=== PATIENT | female | born 1955 | race Caucasian/White ===

== ENCOUNTER 2016-12-26 15:16 | Emergency (ER) | payer MEDICAID ==
[2016-12-26 15:25] VITALS: BP 102/72
--- NOTE | 2016-12-26 15:46 | ED Physician Documentation ---
PD HPI HEENT - Stated complaint Stated Complaint: R EAR PX - Chief complaint Chief Complaint: Heent - History obtained from History obtained from: Patient - History of Present Illness Timing - onset: How many days ago (2) Timing - duration: Days (2) Timing - details: Gradual onset, Still present, Constant Location: Right ear, Throat (back of throat and side of tongue hurt.) Worsens: Swalllowing Associated symptoms: Congestion (feels drainage that tastes bad down right side back of throat. Pain right pharynx with swallowing.). No: Fever Similar symptoms before: Has not had sx before Recently seen: Not recently seen Review of Systems Constitutional: denies: Fever, Chills Ears: reports: Ear pain Nose: reports: Congestion, Sinus pressure / pain Throat: reports: Sore throat Respiratory: denies: Cough PD PAST MEDICAL HISTORY - Past Medical History Past Medical History: Yes Cardiovascular: Hypertension Respiratory: None Neuro: None Endocrine/Autoimmune: None Psych: Anxiety Musculoskeletal: Osteoarthritis, Fatigue, Chronic back pain - Past Surgical History Past Surgical History: No - Present Medications Home Medications: Ambulatory Orders Medication Instructions Recorded Confirmed Cephalexin [Keflex] 500 mg PO TID #21 capsule 12/26/16 HYDROcod/ACETAM 5/325 [[place] 5/325] 1 tab PO Q6H PRN #15 tablet 12/26/16 Lisinopril [Lisinopril] 10 mg PO DAILY 12/26/16 12/26/16 Naproxen 375 mg PO BID #20 tablet 12/26/16 Potassium Chloride 10 meq PO BID #8 tablet.er 12/27/16 - Allergies Allergies/Adverse Reactions: Allergies Allergy/AdvReac Type Severity Reaction Status Date / Time No Known Drug Allergies Allergy Verified 12/26/16 15:25 - Social History Does the pt smoke?: No Smoking Status: Never smoker Does the pt drink ETOH?: Yes Does the pt have substance abuse?: No - Immunizations Immunizations are current?: Yes PD ED PE NORMAL - Vitals Vital signs reviewed: Yes - General General: Alert and oriented X 3, No acute distress, Well developed/nourished - HEENT HEENT: Ears normal, Dentition benign, Other (right posterior soft pallatte with some redness but no focal swelling. Tonsils without exudate. No noted peritonsillar swelling. ) Results - Vitals Vitals: Oxygen O2 Source Room air PD MEDICAL DECISION MAKING - ED course Complexity details: considered differential (has anterior adenopathy right side. TM appears normal. Upper pallatte right with some tenderness. No dental tenderness. My concern is for early peritonsillar infection by the sound of it. ), d/w patient Departure - Departure Disposition: 01 Home, Self Care Clinical Impression: Ear pain, right Sinusitis, acute Qualifiers: Sinusitis location: sphenoidal Recurrence: non-recurrent Qualified Code(s): J01.30 - Acute sphenoidal sinusitis, unspecified Condition: Stable Record reviewed to determine appropriate education?: Yes Instructions: ED Sinusitis Abx Tx Prescriptions: Cephalexin [Keflex] 500 mg PO TID #21 capsule Naproxen 375 mg PO BID #20 tablet HYDROcod/ACETAM 5/325 [[place] 5/325] 1 tab PO Q6H PRN #15 tablet PRN Reason: Pain Comments: This sounds likely to be an infection in the sinus area or back of the nasal passage. The ear drum appears normal. Recheck if other symptoms develop. Otherwise we will treated with anti-inflammatory naproxen twice daily and add Tylenol or hydrocodone if needed for pain. Cephalexin 3 times a day for a week for infection. Recheck if not improving over the next few days. Drink lots of fluids. Discharge Date/Time: 12/26/16 16:09
== END 2016-12-26 16:09 | disposition home or self-care (01) ==
LOC: ED 15:16
DX: H92.01 Otalgia, right ear (principal); J01.30 Acute sphenoidal sinusitis, unspecified; I10 Essential (primary) hypertension
CPT/HCPCS: 99283

== ENCOUNTER 2016-12-27 16:48 | Outpatient (CLI) | payer MEDICAID | END 2016-12-27 16:49 | disposition critical access hospital (66) | LOC: EMS 16:48 | PROVIDERS: ATTEND Surgery | DX: R55 Syncope and collapse (principal); R53.1 Weakness | CPT/HCPCS: A0425; A0427 ==

== ENCOUNTER 2016-12-27 17:23 | Emergency (ER) | payer MEDICAID ==
[2016-12-27] MEDS ORDERED: SODIUM CHLORIDE 0.9% 1,000 ML IV ONE ×2 (17:29→18:08)
--- NOTE | 2016-12-27 17:31 | ED Physician Documentation ---
PD HPI CHEST PAIN - Stated complaint Stated Complaint: LIGHT HEADED/BLURRY VISION - History obtained from History obtained from: Patient, EMS - History of Present Illness Timing - onset: Other (61-year-old woman with history of chronic back pain was seen yesterday for sinusitis. She was outside of the pharmacy waiting for her medications when she started to feel dizzy, she thought maybe she needed something to eat but then fell down without syncope without further injury. EMS was summoned and they found her to be in an SVT with a rate greater than 200 and modestly hypotensive. She converted to normal sinus tachycardia after the administration of 6 mg of adenosine but remains modestly hypotensive, around 80/40. She has no acute complaints at this time and there was no chest pain at any time.) Review of Systems Ten Systems: 10 systems reviewed and negative Constitutional: denies: Fever, Chills Cardiac: denies: Chest pain / pressure, Pedal edema, Calf pain Respiratory: denies: Cough, Hemoptysis, Wheezing GI: denies: Abdominal Pain PD PAST MEDICAL HISTORY - Past Medical History Cardiovascular: Hypertension Respiratory: None Neuro: None Endocrine/Autoimmune: None Psych: Anxiety Musculoskeletal: Osteoarthritis, Fatigue, Chronic back pain - Past Surgical History Past Surgical History: No - Present Medications Home Medications: Ambulatory Orders Medication Instructions Recorded Confirmed Cephalexin [Keflex] 500 mg PO TID #21 capsule 12/26/16 HYDROcod/ACETAM 5/325 [[place] 5/325] 1 tab PO Q6H PRN #15 tablet 12/26/16 Lisinopril [Lisinopril] 10 mg PO DAILY 12/26/16 12/26/16 Naproxen 375 mg PO BID #20 tablet 12/26/16 Potassium Chloride 10 meq PO BID #8 tablet.er 12/27/16 - Allergies Allergies/Adverse Reactions: Allergies Allergy/AdvReac Type Severity Reaction Status Date / Time No Known Drug Allergies Allergy Verified 12/26/16 15:25 - Social History Does the pt smoke?: No Smoking Status: Never smoker Does the pt drink ETOH?: Yes Does the pt have substance abuse?: No - Immunizations Immunizations are current?: Yes PD ED PE NORMAL - Vitals Vital signs reviewed: Yes - General General: Alert and oriented X 3, No acute distress - HEENT HEENT: PERRL, EOMI - Neck Neck: Supple, no meningeal sign, No bony TTP - Cardiac Cardiac: RRR, No murmur - Respiratory Respiratory: No respiratory distress, Clear bilaterally - Abdomen Abdomen: Normal bowel sounds, Soft, Non tender - Extremities Extremities: No edema, No calf tenderness / cord - Neuro Neuro: Alert and oriented X 3, Normal speech - Psych Psych: Normal mood, Normal affect Results - Vitals Vitals: Vital Signs - 24 hr 12/27/16 12/27/16 12/27/16 17:25 17:30 17:48 Temperature 36.4 C L Heart Rate 113 H 118 H 110 H Respiratory 19 20 16 Rate Blood Pressure 105/65 89/65 L 109/68 O2 Saturation 100 98 100 Oxygen O2 Source Room air - EKG (time done) 1734 Rate: Rate (enter#) (116) Rhythm: Sinus tachycardia [place]: LAD Intervals: Normal [place] QRS: Normal Ischemia: Non specific changes. No: ST elevation c/w ischemia Compare to prior EKG: Old EKG unavailable Computer interpretation: Agree with computer - Labs Labs: Laboratory Tests 12/27/16 12/27/16 12/27/16 17:33 17:33 17:33 WBC 12.2 H RBC 4.46 Hgb 14.5 Hct 41.3 MCV 92.8 MCH 32.6 H MCHC 35.1 RDW 13.1 Plt Count 306 MPV 8.1 Neut # 7.2 H Lymph # 3.2 [place] # 1.7 H Eos # 0.1 Baso # 0.1 Absolute Nucleated RBC 0.00 Nucleated RBCs 0.0 Sodium 133 L Potassium 2.4 L* Chloride 97 L Carbon Dioxide 24 Anion Gap 12.0 BUN 29 H Creatinine 1.4 H Estimated GFR (MDRD) 38 L Glucose 102 H Calcium 8.7 Magnesium 1.6 L Total Bilirubin 0.9 AST 59 H ALT 43 Alkaline Phosphatase 63 Total Creatine Kinase 109 CK-MB (CK-2) 2.6 Troponin I < 0.04 Total Protein 6.8 Albumin 3.7 Globulin 3.1 Albumin/Globulin Ratio 1.2 Lipase 48 TSH Urine Color Urine Clarity Urine pH Ur Specific [place] Urine Protein Urine Glucose (UA) Urine Ketones Urine Occult Blood Urine Nitrite Urine Bilirubin Urine Urobilinogen Ur Leukocyte Esterase Ur Microscopic Review Urine Culture Comments Urine Opiates Screen Ur Oxycodone Screen Urine Methadone Screen Ur Propoxyphene Screen Ur Barbiturates Screen Ur Tricyclics Screen Ur Phencyclidine Scrn Ur Amphetamine Screen U Methamphetamines Scrn U Benzodiazepines Scrn Urine Cocaine Screen U Cannabinoids Screen Ethyl Alcohol 6.5 12/27/16 12/27/16 17:33 17:45 WBC RBC Hgb Hct MCV MCH MCHC RDW Plt Count MPV Neut # Lymph # [place] # Eos # Baso # Absolute Nucleated RBC Nucleated RBCs Sodium Potassium Chloride Carbon Dioxide Anion Gap BUN Creatinine Estimated GFR (MDRD) Glucose Calcium Magnesium Total Bilirubin AST ALT Alkaline Phosphatase Total Creatine Kinase CK-MB (CK-2) Troponin I Total Protein Albumin Globulin Albumin/Globulin Ratio Lipase TSH 3.28 Urine Color YELLOW Urine Clarity CLEAR Urine pH 6.0 Ur Specific [place] <=1.005 Urine Protein NEGATIVE Urine Glucose (UA) NEGATIVE Urine Ketones NEGATIVE Urine Occult Blood TRACE-LYSE Urine Nitrite NEGATIVE Urine Bilirubin NEGATIVE Urine Urobilinogen 0.2 (NORMAL) Ur Leukocyte Esterase NEGATIVE Ur Microscopic Review NOT INDICATED Urine Culture Comments NOT INDICATED Urine Opiates Screen NEGATIVE Ur Oxycodone Screen NEGATIVE Urine Methadone Screen NEGATIVE Ur Propoxyphene Screen NEGATIVE Ur Barbiturates Screen NEGATIVE Ur Tricyclics Screen NEGATIVE Ur Phencyclidine Scrn NEGATIVE Ur Amphetamine Screen NEGATIVE U Methamphetamines Scrn POSITIVE H U Benzodiazepines Scrn NEGATIVE Urine Cocaine Screen NEGATIVE U Cannabinoids Screen NEGATIVE Ethyl Alcohol PD MEDICAL DECISION MAKING - ED course ED course: 61-year-old woman presents after an SVT with hypotension which was converted by EMS in the field. Her hypotension quickly resolved with the administration of IV fluids workup in the emergency department demonstrated significant hypokalemia, lab evidence of dehydration, and methamphetamines in her urine which she denied any recent use of. Treatment consisted of 2 L of IV fluids and both IV and oral potassium repletion. Departure - Departure Disposition: 01 Home, Self Care Clinical Impression: Dehydration, Hypokalemia, Supraventricular tachycardia Condition: Good Record reviewed to determine appropriate education?: Yes Instructions: ED Dehydration, ED Potassium Deficiency Prescriptions: Potassium Chloride 10 meq PO BID #8 tablet.er Comments: Drink plenty of fluids and follow-up with your physician, call tomorrow for the next available appointment. Return if worse.
[2016-12-27 17:40] LABS: BASOPHILS # (AUTO) 0.1 10^3/uL (0.0-0.1); BASOPHILS % (AUTO) 0.5 %; EOSINOPHILS # (AUTO) 0.1 10^3/uL (0.0-0.7); EOSINOPHILS % (AUTO) 1.1 %; HCT - HEMATOCRIT 41.3 % (37.0-47.0); HGB - HEMOGLOBIN 14.5 g/dL (12.0-16.0); LYMPHOCYTES # (AUTO) 3.2 10^3/uL (1.5-3.5); LYMPHOCYTES % (AUTO) 25.8 %; MEAN CORPUSCULAR HEMOGLOBIN 32.6 pg (27.0-31.0); MEAN CORPUSCULAR HGB CONC 35.1 g/dL (32.0-36.0); MEAN CORPUSCULAR VOLUME 92.8 fL (81.0-99.0); MEAN PLATELET VOLUME 8.1 fL (7.9-10.8); MONOCYTES # (AUTO) 1.7 10^3/uL (0.0-1.0); MONOCYTES % (AUTO) 13.9 %; NEUTROPHILS # (AUTO) 7.2 10^3/uL (1.5-6.6); NEUTROPHILS % (AUTO) 58.7 %; RED BLOOD COUNT 4.46 10^6/uL (4.20-5.40); RED CELL DISTRIBUTION WIDTH 13.1 % (12.0-15.0); UNCORRECTED WHITE BLOOD COUNT 12.2 x10^3/uL; WHITE BLOOD COUNT 12.2 x10^3/uL (4.8-10.8)
[2016-12-27 17:54] LABS: BILIRUBIN,URINE NEGATIVE (NEGATIVE)
[2016-12-27 17:55] LABS: ALBUMIN/GLOBULIN RATIO 1.2 (1.0-2.2); BILIRUBIN,TOTAL 0.9 mg/dL (0.2-1.0); CALCIUM 8.7 mg/dL (8.5-10.3); CREATININE 1.4 mg/dL (0.4-1.0); MAGNESIUM 1.6 mg/dL (1.7-2.8); POTASSIUM 2.4 mmol/L (3.5-5.0); TOTAL PROTEIN 6.8 g/dL (6.7-8.2)
[2016-12-27] MEDS ORDERED: POTASSIUM BICARB 25 MEQ TABLET PO STA (17:55)
[2016-12-27] MEDS ORDERED: POTASSIUM CHLOR 10 MEQ/100 ML 100 ML IV ONE ×2 (17:55→18:04)
[2016-12-27 17:59] LABS: CREATINE KINASE MB 2.6 ng/mL (0.6-6.3)
[2016-12-27 18:00] LABS: UA CHARGE (STRIP ONLY) YES; UR CULTURE IF IND NOT INDICATED
[2016-12-27 18:00] LABS: TROPONIN I < 0.04 ng/mL (<0.49)
[2016-12-27] MEDS ORDERED: POTASSIUM BICARB 25 MEQ TABLET PO ONE (18:14)
[2016-12-27 19:20] VITALS: BP 110/68
== END 2016-12-27 19:30 | disposition home or self-care (01) ==
LOC: EDUNIT# → ED 17:23
DX: E86.0 Dehydration (principal); E87.6 Hypokalemia; I47.1 Supraventricular tachycardia; I10 Essential (primary) hypertension; M19.90 Unspecified osteoarthritis, unspecified site; M54.9 Dorsalgia, unspecified; G89.29 Other chronic pain
CPT/HCPCS: 36415; 80053; 80306; 80320; 81003; 82550; 82553; 83690; 83735; 84443; 84484; 85025; 93005; 96374; 99283; 99284; A9270; 81001; 87086

== ENCOUNTER 2017-08-07 08:26 | Emergency (ER) | payer MEDICAID ==
[2017-08-07] MEDS ORDERED: DEXAMETHASONE 10 MG/ML VIAL IVP STA (08:47)
[2017-08-07] MEDS ORDERED: SODIUM CHLORIDE 0.9% 1,000 ML IV ONE (08:47)
[2017-08-07] MEDS ORDERED: cefTRIAXone 1 GM in SODIUM CHLORIDE 0.9% MINIBAG 100 ML IV STA (08:47)
[2017-08-07] MEDS ORDERED: IPRATROPIUM/ALBUTEROL 3 ML NEB INH STA (08:48)
[2017-08-07] MEDS ORDERED: ACETAMINOPHEN 325 MG TABLET PO STA (08:51)
--- NOTE | 2017-08-07 08:51 | ED Physician Documentation ---
PD HPI URI - Stated complaint Stated Complaint: SOA/COUGH - Chief complaint Chief Complaint: Resp - History obtained from History obtained from: Patient - History of Present Illness Timing - onset: How many days ago (3) Timing duration: Days (3) Timing details: Gradual onset, Still present Associated symptoms: Fever, Chills, Ear pain, Nasal congestion, Rhinorrhea, Sore throat, Productive cough, Dyspnea Contributing factors: Sick contact (living in a correction with others that are sick .) Improves by: MDI/nebulizer Worsened by: Activity, Position Similar symptoms before: Diagnosis (sinusitis) Recently seen: Not recently seen - Additional information Additional information: 61-year-old homeless female has developed a cough and congestion that she believes is related to being around other homeless people who are currently sick. She has been using her inhaler frequently and does not feel that it is working entirely. She has pain in her ears she has a sore throat she has some drainage down the back of her throat. Review of Systems Constitutional: reports: Fever, Chills, Myalgias, Fatigue Eyes: denies: Decreased vision Ears: reports: Ear pain Nose: reports: Rhinorrhea / runny nose, Congestion Throat: reports: Sore throat Cardiac: reports: Chest pain / pressure. denies: Palpitations, Pedal edema, Calf pain Respiratory: reports: Dyspnea, Cough, Wheezing GI: denies: Abdominal Pain, Nausea, Vomiting : denies: Dysuria PD PAST MEDICAL HISTORY - Past Medical History Cardiovascular: Hypertension Respiratory: None Neuro: None Endocrine/Autoimmune: None Psych: Anxiety Musculoskeletal: Osteoarthritis, Fatigue, Chronic back pain - Past Surgical History Past Surgical History: No - Present Medications Home Medications: Ambulatory Orders Medication Instructions Recorded Confirmed Lisinopril [Lisinopril] 10 mg PO DAILY 12/26/16 12/26/16 Azithromycin [Zithromax] 250 mg PO DAILY #6 tablet 08/07/17 Benzonatate [Tessalon] 100 - 200 mg PO TID PRN #20 capsule 08/07/17 - Allergies Allergies/Adverse Reactions: Allergies Allergy/AdvReac Type Severity Reaction Status Date / Time No Known Drug Allergies Allergy Verified 08/07/17 08:34 - Social History Does the pt smoke?: No Smoking Status: Never smoker Does the pt drink ETOH?: Yes Does the pt have substance abuse?: No - Immunizations Immunizations are current?: Yes - POLST Patient has POLST: No PD ED PE NORMAL - Vitals Vital signs reviewed: Yes (tachy and hpertensive with fever) - General General: Alert and oriented X 3, Well developed/nourished - HEENT HEENT: Atraumatic, PERRL, EOMI, Other (both TM's are mildly inflamed the left is inflamed in the attic as well ) - Neck Neck: Supple, no meningeal sign, No bony TTP - Cardiac Cardiac: No murmur, Other (tachy to 120) - Respiratory Respiratory: No respiratory distress, Clear bilaterally - Abdomen Abdomen: Soft, Non tender - Back Back: No CVA TTP, No spinal TTP - Derm Derm: Normal color, No rash - Extremities Extremities: No deformity, No edema - Neuro Neuro: No motor deficit, No sensory deficit Eye Opening: Spontaneous Motor: Obeys Commands Verbal: Oriented GCS Score: 15 - Psych Psych: Normal mood, Normal affect Results - Vitals Vitals: Vital Signs - 24 hr 08/07/17 08/07/17 08/07/17 08:29 09:20 10:33 Temperature 38.2 C H Heart Rate 122 H 98 105 H Respiratory 24 20 17 Rate Blood Pressure 138/92 H 139/98 H O2 Saturation 97 96 Oxygen O2 Source Room air - Labs Labs: Laboratory Tests 08/07/17 08/07/17 08/07/17 08:40 09:00 09:00 WBC 13.0 H RBC 4.65 Hgb 14.8 Hct 42.7 MCV 91.7 MCH 31.9 H MCHC 34.7 RDW 14.2 Plt Count 274 MPV 7.5 L Neut # 9.7 H Lymph # 1.6 [place] # 1.4 H Eos # 0.2 Baso # 0.1 Absolute Nucleated RBC 0.00 Nucleated RBC % 0.0 Sodium Potassium Chloride Carbon Dioxide Anion Gap BUN Creatinine Estimated GFR (MDRD) Glucose Calcium Total Bilirubin AST ALT Alkaline Phosphatase Troponin I Total Protein Albumin Globulin Albumin/Globulin Ratio Lipase Urine Color YELLOW Urine Clarity HAZY Urine pH 5.5 Ur Specific [place] >=1.030 H Urine Protein 30 H Urine Glucose (UA) NEGATIVE Urine Ketones NEGATIVE Urine Occult Blood LARGE H Urine Nitrite NEGATIVE Urine Bilirubin NEGATIVE Urine Urobilinogen 0.2 (NORMAL) Ur Leukocyte Esterase SMALL H Urine RBC TNTC H Urine WBC 4-5 Ur Squamous Epith Cells FEW Squamous Urine Bacteria Few Ur Microscopic Review INDICATED Urine Culture Comments INDICATED Influenza A (Rapid) Negative Influenza B (Rapid) Negative 08/07/17 08/07/17 09:44 09:44 WBC RBC Hgb Hct MCV MCH MCHC RDW Plt Count MPV Neut # Lymph # [place] # Eos # Baso # Absolute Nucleated RBC Nucleated RBC % Sodium 136 Potassium 3.4 L Chloride 103 Carbon Dioxide 24 Anion Gap 9.0 BUN 11 Creatinine 0.6 Estimated GFR (MDRD) 102 Glucose 107 H Calcium 7.8 L Total Bilirubin 0.3 AST 22 ALT 16 Alkaline Phosphatase 54 Troponin I < 0.04 Total Protein 7.0 Albumin 3.7 Globulin 3.3 Albumin/Globulin Ratio 1.1 Lipase 26 Urine Color Urine Clarity Urine pH Ur Specific [place] Urine Protein Urine Glucose (UA) Urine Ketones Urine Occult Blood Urine Nitrite Urine Bilirubin Urine Urobilinogen Ur Leukocyte Esterase Urine RBC Urine WBC Ur Squamous Epith Cells Urine Bacteria Ur Microscopic Review Urine Culture Comments Influenza A (Rapid) Influenza B (Rapid) - Rads (name of study) 2 veiw chest Radiology: Prelim report reviewed (Impression: No evidence for acute cardiothoracic process.), EMP read indepedently, See rad report PD MEDICAL DECISION MAKING - ED course Complexity details: reviewed old records, reviewed results, re-evaluated patient , considered differential, d/w patient ED course: 61-year-old homeless female with cough and congestion has otitis. She is found to be dehydrated as well. She is administered saline Rocephin a DuoNeb treatment and dexamethasone. Departure - Departure Disposition: 01 Home, Self Care Clinical Impression: Dehydration Otitis media Qualifiers: Otitis media type: suppurative Chronicity: acute Laterality: bilateral Recurrence: not specified as recurrent Spontaneous tympanic membrane rupture: without spontaneous rupture Qualified Code(s): H66.003 - Acute suppurative otitis media without spontaneous rupture of ear drum, bilateral Condition: Stable Instructions: ED Dehydration, ED Otitis Media Acute Adult Follow-Up: Yolette Land PA-C [Primary Care Provider] - Prescriptions: Azithromycin [Zithromax] 250 mg PO DAILY #6 tablet Benzonatate [Tessalon] 100 - 200 mg PO TID PRN #20 capsule PRN Reason: Cough Discharge Date/Time: 08/07/17 10:41
[2017-08-07 08:52] LABS: BILIRUBIN,URINE NEGATIVE (NEGATIVE); GLUCOSE, URINE (UA) NEGATIVE (NEGATIVE); KETONES,URINE (UA) NEGATIVE (NEGATIVE); LEUKOCYTE ESTERASE, URINE SMALL (NEGATIVE); NITRITE,URINE NEGATIVE (NEGATIVE); OCCULT BLOOD,URINE LARGE (NEGATIVE); PH,URINE 5.5 PH (5.0-7.5); PROTEIN,URINE 30 mg/dL (NEGATIVE); UROBILINOGEN,URINE 0.2 (NORMAL) E.U./dL (NORMAL)
[2017-08-07 08:53] LABS: CLARITY,URINE HAZY (CLEAR)
[2017-08-07 09:18] LABS: BASOPHILS # (AUTO) 0.1 10^3/uL (0.0-0.1); BASOPHILS % (AUTO) 0.7 %; EOSINOPHILS # (AUTO) 0.2 10^3/uL (0.0-0.7); EOSINOPHILS % (AUTO) 1.4 %; HGB - HEMOGLOBIN 14.8 g/dL (12.0-16.0); LYMPHOCYTES # (AUTO) 1.6 10^3/uL (1.5-3.5); LYMPHOCYTES % (AUTO) 12.6 %; MEAN CORPUSCULAR HEMOGLOBIN 31.9 pg (27.0-31.0); MEAN CORPUSCULAR HGB CONC 34.7 g/dL (32.0-36.0); MEAN CORPUSCULAR VOLUME 91.7 fL (81.0-99.0); MEAN PLATELET VOLUME 7.5 fL (7.9-10.8); MONOCYTES # (AUTO) 1.4 10^3/uL (0.0-1.0); NEUTROPHILS # (AUTO) 9.7 10^3/uL (1.5-6.6); NEUTROPHILS % (AUTO) 74.3 %; PLT - PLATELET COUNT 274 10^3/uL (130-450); RED BLOOD COUNT 4.65 10^6/uL (4.20-5.40); RED CELL DISTRIBUTION WIDTH 14.2 % (12.0-15.0)
[2017-08-07 09:23] LABS: BACTERIA,URINE Few /HPF (None Seen); RBC,URINE TNTC /HPF (0-5); SQUAMOUS EPITHELIAL CELL,UR FEW Squamous (<= Few)
--- NOTE | 2017-08-07 09:40 | XRAY Report ---
EXAM: CHEST RADIOGRAPHY EXAM DATE: 08/07/2017 09:07 AM. CLINICAL HISTORY: Cough soa. COMPARISON: None. TECHNIQUE: 2 views. FINDINGS: Lungs/Pleura: No focal opacities evident. No pleural effusion. No pneumothorax. Normal volumes. Mediastinum: Heart and mediastinal contours are unremarkable. Other: Mild compression deformities of several lower there are: Lumbar vertebral body, age indetermin ate. IMPRESSION: No evidence for acute cardiothoracic process. [facility] Referring Provider Line: [phone] SITE ID: [id number]
[2017-08-07 10:06] LABS: ALBUMIN 3.7 g/dL (3.2-5.5); ALBUMIN/GLOBULIN RATIO 1.1 (1.0-2.2); BILIRUBIN,TOTAL 0.3 mg/dL (0.2-1.0); CALCIUM 7.8 mg/dL (8.5-10.3); CREATININE 0.6 mg/dL (0.4-1.0)
[2017-08-07] MEDS ORDERED: POTASSIUM BICARB 25 MEQ TABLET PO STA (10:21)
[2017-08-07 10:34] VITALS: BP 139/98
--- NOTE | 2017-08-10 06:06 | ED Physician Documentation ---
ED Addendum - Addendum Addendum: 08/10/17 06:05 Chart accessed for culture review. Urine cultured out E. Coli. Not tested against azithromycin; recommend add bactrim for the UTI but finish zithromax for URI
== END 2017-08-07 10:41 | disposition home or self-care (01) ==
LOC: ED 08:26
DX: E86.0 Dehydration (principal); H66.003 Acute suppurative otitis media without spontaneous rupture of ear drum, bilateral; R00.0 Tachycardia, unspecified; I10 Essential (primary) hypertension; Z59.0 Homelessness
CPT/HCPCS: 36415; 71046; 80053; 81001; 83690; 84484; 85025; 87086; 87181; 87275; 87276; 96365; 96375; 99283; 99284; A9270; 81003

== ENCOUNTER 2017-09-01 10:23 | Outpatient (CLI) | payer MEDICAID ==
[2017-09-01 17:46] LABS: BASOPHILS % (AUTO) 0.5 %; EOSINOPHILS # (AUTO) 0.2 10^3/uL (0.0-0.7); EOSINOPHILS % (AUTO) 3.4 %; LYMPHOCYTES # (AUTO) 2.3 10^3/uL (1.5-3.5); MEAN CORPUSCULAR HEMOGLOBIN 32.4 pg (27.0-31.0); MEAN CORPUSCULAR HGB CONC 33.8 g/dL (32.0-36.0); MEAN PLATELET VOLUME 7.8 fL (7.9-10.8); MONOCYTES # (AUTO) 0.9 10^3/uL (0.0-1.0); MONOCYTES % (AUTO) 19.2 %; NEUTROPHILS # (AUTO) 1.2 10^3/uL (1.5-6.6); NEUTROPHILS % (AUTO) 26.9 %; PLT - PLATELET COUNT 167 10^3/uL (130-450); RED BLOOD COUNT 4.33 10^6/uL (4.20-5.40); RED CELL DISTRIBUTION WIDTH 14.8 % (12.0-15.0); WHITE BLOOD COUNT 4.6 x10^3/uL (4.8-10.8)
[2017-09-01 17:52] LABS: ALBUMIN 4.1 g/dL (3.2-5.5); ALBUMIN/GLOBULIN RATIO 1.2 (1.0-2.2); CALCIUM 8.9 mg/dL (8.5-10.3); CREATININE 0.6 mg/dL (0.4-1.0); TOTAL PROTEIN 7.5 g/dL (6.7-8.2)
[2017-09-01 18:07] LABS: BILIRUBIN,URINE NEGATIVE (NEGATIVE); GLUCOSE, URINE (UA) NEGATIVE (NEGATIVE); KETONES,URINE (UA) TRACE mg/dL (NEGATIVE); LEUKOCYTE ESTERASE, URINE NEGATIVE (NEGATIVE); NITRITE,URINE NEGATIVE (NEGATIVE); OCCULT BLOOD,URINE TRACE-INTA (NEGATIVE); PROTEIN,URINE NEGATIVE (NEGATIVE); UROBILINOGEN,URINE 0.2 (NORMAL) E.U./dL (NORMAL)
[2017-09-01 18:19] LABS: BACTERIA,URINE None Seen /HPF (None Seen); CLARITY,URINE CLEAR (CLEAR); CRYSTALS,URINE 11-25 Ca Oxalate /LPF; RBC,URINE 0-5 /HPF (0-5); SQUAMOUS EPITHELIAL CELL,UR NONE SEEN (<= Few)
== END 2017-09-01 10:24 | disposition home or self-care (01) ==
LOC: LAB.F 10:23
PROVIDERS: ATTEND Physician Assistant Medical
DX: I10 Essential (primary) hypertension (principal); N39.0 Urinary tract infection, site not specified
CPT/HCPCS: 36415; 80053; 81001; 85025; 87086

== ENCOUNTER 2017-09-09 09:23 | Outpatient (CLI) | payer MEDICAID ==
[2017-09-09 10:49] LABS: ALBUMIN/GLOBULIN RATIO 1.2 (1.0-2.2); BILIRUBIN,TOTAL 1.2 mg/dL (0.2-1.0); CALCIUM 8.9 mg/dL (8.5-10.3); CREATININE 0.5 mg/dL (0.4-1.0); TOTAL PROTEIN 7.3 g/dL (6.7-8.2)
[2017-09-10 18:58] LABS: HEPATITIS C ANTIBODY NON-REACTIVE (NON-REACTIVE)
== END 2017-09-09 09:24 | disposition home or self-care (01) ==
LOC: LAB 09:23
PROVIDERS: ATTEND Physician Assistant Medical
DX: E87.6 Hypokalemia (principal); R94.5 Abnormal results of liver function studies; Z11.59 Encounter for screening for other viral diseases
CPT/HCPCS: 36415; 80053; 83735; 86803

== ENCOUNTER 2017-09-14 07:55 | Emergency (ER) | payer MEDICAID ==
[2017-09-14 08:09] VITALS: BP 167/112
[2017-09-14] MEDS ORDERED: LIDOCAINE PATCH 5% TOP PRN (08:18)
[2017-09-14] MEDS ORDERED: KETOROLAC 60 MG/2 ML VIAL IM STA (08:18)
[2017-09-14] MEDS ORDERED: ONDANSETRON ODT 4 MG TABLET TL STA (08:18)
[2017-09-14] MEDS ORDERED: CYCLOBENZAPRINE 10 MG TABLET PO STA (08:18)
--- NOTE | 2017-09-14 08:33 | ED Physician Documentation ---
History of Present Illness - Stated complaint Stated Complaint: BACK PX/DIZZY - Chief complaint Chief Complaint: Back Pain - Additonal information Additional information: hx from pt 61 f long standing back problems - states spinal stenosis, degenerative disk, meningioma has had PT and accupuncture etc has nilesh floor numbness from ankle down and L foot drop occ her back flares up and caused her to collapse in pain this occurred last night and she fell and hit her head on the wall no LOC but has a severe WHITE, feels off and has had numerous episodes of NV no neck pain no new numbness or weakness no fever no abd pain no incont no saddle anesthesia Review of Systems Constitutional: denies: Fever Cardiac: denies: Chest pain / pressure Respiratory: denies: Dyspnea GI: reports: Nausea, Vomiting : denies: Incontinent Musculoskeletal: reports: Back pain. denies: Neck pain Neurologic: reports: Numbness (nilesh feet ankles down not new), Headache, Head injury. denies: Focal weakness, LOC Endocrine: denies: Easy bruising / bleeding Immunocompromised: denies: Immunocompromised PD PAST MEDICAL HISTORY - Past Medical History Past Medical History: Yes Cardiovascular: Hypertension Respiratory: None Endocrine/Autoimmune: None Psych: Anxiety Musculoskeletal: Osteoarthritis, Fatigue, Chronic back pain - Past Surgical History Past Surgical History: No - Present Medications Home Medications: Ambulatory Orders Medication Instructions Recorded Confirmed Lisinopril [Lisinopril] 10 mg PO DAILY 12/26/16 09/14/17 Cyclobenzaprine [Flexeril] 10 mg PO TID PRN #20 tablet 09/14/17 Lidocaine Patch 5% [Lidoderm Patch] 1 each TOP DAILY PRN #10 patch 09/14/17 Ondansetron Odt [Zofran] 4 mg TL Q6H PRN #10 tablet 09/14/17 Potassium Chloride 10 meq PO DAILY 09/14/17 09/14/17 - Allergies Allergies/Adverse Reactions: Allergies Allergy/AdvReac Type Severity Reaction Status Date / Time No Known Drug Allergies Allergy Verified 08/07/17 08:34 - Social History Does the pt smoke?: No Smoking Status: Never smoker Does the pt drink ETOH?: Yes Does the pt have substance abuse?: No - Immunizations Immunizations are current?: Yes - POLST Patient has POLST: No PD ED PE NORMAL - Vitals Vital signs reviewed: Yes - Neck Neck: Supple, no meningeal sign - Cardiac Cardiac: RRR - Respiratory Respiratory: No respiratory distress, Clear bilaterally - Abdomen Abdomen: Soft, Non tender, Other (no pulsatile mass) - Derm Derm: Normal color - Neuro Neuro: Alert and oriented X 3, No motor deficit. No: No sensory deficit (nilesh foot dec sensation is not new per pt, hip flex knee ext foot dorsi flax and great toe ext 5/5, foot planatr flex weak nilesh, neg SLR nilesh, patellar DTR 2+/4 nilesh, no clonus, denies saddle anesthesia) Eye Opening: Spontaneous Motor: Obeys Commands Verbal: Oriented GCS Score: 15 Results - Vitals Vitals: Vital Signs - 24 hr 09/14/17 08:04 Temperature 36.8 C Heart Rate 113 H Respiratory 20 Rate Blood Pressure 167/112 H O2 Saturation 100 Oxygen O2 Source Room air - Labs Labs: Laboratory Tests 09/14/17 08:33 Urine Color YELLOW Urine Clarity CLEAR Urine pH 6.5 Ur Specific [place] >=1.030 H Urine Protein NEGATIVE Urine Glucose (UA) NEGATIVE Urine Ketones NEGATIVE Urine Occult Blood MODERATE H Urine Nitrite NEGATIVE Urine Bilirubin NEGATIVE Urine Urobilinogen 0.2 (NORMAL) Ur Leukocyte Esterase NEGATIVE Urine RBC 6-10 H Urine WBC 0-3 Ur Squamous Epith Cells RARE Squamous Urine Bacteria Rare Ur Microscopic Review INDICATED Urine Culture Comments NOT INDICATED PD MEDICAL DECISION MAKING - ED course ED course: no LOC but severe WHITE and repetitive NV so got CTH which was thankfully neg HR noted and I felt his is due to her pain - no fever or suggestion of sepsis back pain is chronic and not new - denies substance abuse - no fever, no redness or warmth or new neuro deficits to suggest cauda equina epidural asbcess etc Departure - Departure Disposition: 01 Home, Self Care Clinical Impression: Back pain Qualifiers: Chronicity: chronic Back pain laterality: bilateral Sciatica presence: unspecified whether sciatica present Head injury Qualifiers: Encounter type: initial encounter Qualified Code(s): S09.90XA - Unspecified injury of head, initial encounter Condition: Good Instructions: ED Head Injury Closed, ED Neck Back Pain General Follow-Up: Yolette Land PA-C [Primary Care Provider] - (for a recheck later this week unless completely better) Prescriptions: Cyclobenzaprine [Flexeril] 10 mg PO TID PRN #20 tablet PRN Reason: Spasms Lidocaine Patch 5% [Lidoderm Patch] 1 each TOP DAILY PRN #10 patch PRN Reason: Pain Ondansetron Odt [Zofran] 4 mg TL Q6H PRN #10 tablet PRN Reason: Nausea / Vomiting Comments: Thankfully the CT scan was negative - no brain bleeding or swelling Please be very careful not to hit your head again - a second impact can cause brain swelling - can take tylenol for the pain and zofran for vomiting For your back pain I have prescribed lidocaine and flexeril There was a very small amount of blood in the urine - but this pain does not sound like a kidney stone - please follow up with your PMD to get the urine rechecked and if the blood persists, a referral to urology
[2017-09-14 08:37] LABS: BILIRUBIN,URINE NEGATIVE (NEGATIVE); GLUCOSE, URINE (UA) NEGATIVE (NEGATIVE); KETONES,URINE (UA) NEGATIVE (NEGATIVE); LEUKOCYTE ESTERASE, URINE NEGATIVE (NEGATIVE); NITRITE,URINE NEGATIVE (NEGATIVE); OCCULT BLOOD,URINE MODERATE (NEGATIVE); PH,URINE 6.5 PH (5.0-7.5); PROTEIN,URINE NEGATIVE (NEGATIVE); UROBILINOGEN,URINE 0.2 (NORMAL) E.U./dL (NORMAL)
[2017-09-14 08:40] LABS: CLARITY,URINE CLEAR (CLEAR)
[2017-09-14 08:44] LABS: BACTERIA,URINE Rare /HPF (None Seen); SQUAMOUS EPITHELIAL CELL,UR RARE Squamous (<= Few)
[2017-09-14] MEDS ORDERED: DEXAMETHASONE 10 MG/ML VIAL PO STA (08:45)
[2017-09-14] MEDS ORDERED: CHERRY SYRUP 10 ML UDC PO ONE (09:06)
--- NOTE | 2017-09-14 09:07 | CT Preliminary Report ---
Exam: CT HEAD W/O IMPRESSION: Normal head CT. [facility] SITE ID: [id number]
--- NOTE | 2017-09-14 09:07 | CT Report ---
EXAM: CT HEAD EXAM DATE: 09/14/2017 08:51 AM. CLINICAL HISTORY: HI, WHITE, repetitive NV. COMPARISON: None. TECHNIQUE: Multiaxial CT images were obtained from the foramen magnum to the vertex. Reformats: Coron al. IV contrast: None. In accordance with CT protocol optimization, one or more of the following dose reduction techniques w ere utilized for this exam: automated exposure control, adjustment of mA and/or KV based on patient s ize, or use of iterative reconstructive technique. FINDINGS: Parenchyma: No intraparenchymal hemorrhage. No evidence of mass, midline shift, or CT findings of inf arction. Goldman-white differentiation is distinct. Extraaxial Spaces: Normal for age. No subdural or epidural collections identified. Ventricles: Normal in size and position. Sinuses and Orbits: Imaged paranasal sinuses, orbits, and mastoids show no significant abnormality. Bones: No evidence of fracture or calvarial defect. Other: None. IMPRESSION: Normal head CT. [facility] Referring Provider Line: [phone] SITE ID: [id number]
== END 2017-09-14 10:16 | disposition home or self-care (01) ==
LOC: ED 07:55
DX: M54.5 Low back pain (principal); G89.29 Other chronic pain; S09.90XA Unspecified injury of head, initial encounter; W18.39XA Other fall on same level, initial encounter; Y92.009 Unspecified place in unspecified non-institutional (private) residence as the place of occurrence of the external cause; I10 Essential (primary) hypertension; M19.90 Unspecified osteoarthritis, unspecified site
CPT/HCPCS: 70450; 81001; 99283; 99284; A9270; Q0162; 81003; 87086

== ENCOUNTER 2017-09-17 08:02 | Outpatient (CLI) | payer MEDICAID ==
--- NOTE | 2017-09-21 18:39 | Mammography Report ---
DIGITAL SCREENING MAMMOGRAM: 09/17/2017 HISTORY: Family history of breast cancer. TECHNIQUE: Bilateral digital CC and MLO projections. COMPARISON: 12/27/2015, 09/20/2013 and 07/18/2012. FINDINGS: In the outer upper left breast middle third, nodular densities are present which are similar or smaller in appearance compared to previous and have been shown to be cysts. Scattered benign-appearing calcifications are present in both breasts. On the right MLO projection in the superior breast anterior third, there is a questionable area of architectural distortion. Its precise location on the CC view is uncertain. Further evaluation by spot compression and true lateral views is suggested. Depending on the results, ultrasound may be useful. IMPRESSION: BENIGN FINDINGS LEFT BREAST. BIRADS CATEGORY: 2, BENIGN FINDINGS. NEEDS ADDITIONAL EVALUATION RIGHT BREAST. BIRADS CATEGORY: 0, INCOMPLETE. STANDARD QUALIFYING STATEMENTS 1. This examination was reviewed with the aid of Computed-Aided Detection (CAD) . 2. A negative or benign imaging report should not delay biopsy if clinically suspicious findings are present. Consider surgical consultation if warranted. More than 5 % of cancers are not identified by imaging. 3. Dense breasts may obscure an underlying neoplasm. TD: 09/21/2017 17:23 JAYNA
== END 2017-09-17 08:03 | disposition home or self-care (01) ==
LOC: DI 08:02
PROVIDERS: ATTEND Physician Assistant Medical
DX: Z12.31 Encounter for screening mammogram for malignant neoplasm of breast (principal); R92.2 Inconclusive mammogram; Z80.3 Family history of malignant neoplasm of breast
CPT/HCPCS: 77067

== ENCOUNTER 2017-09-17 08:05 | Outpatient (CLI) | payer MEDICAID ==
--- NOTE | 2017-09-19 13:30 | DEXA Report ---
DEXA SCAN: 09/17/2017 CLINICAL INDICATION: Postmenopausal. TECHNIQUE: Dual energy x-ray absorptiometry (DXA) was performed on a [employer] system. Regions measured are the AP spine, femoral neck, and, if needed, forearm. COMPARISON: None. In accordance with the International Society for Clinical Densitometry (ISCD) guidelines, data from previous exams may be reanalyzed using current recommendations and techniques. This is done to allow a more accurate basis for comparison with the current study. FINDINGS Data for the lumbar spine is as follows: REGION BMD (g/cm/cm) T-SCORE Z-SCORE L1 1.099 -0.3 0.9 L2 0.933 -2.2 -1.1 L3 0.875 -2.7 -1.5 L4 0.941 -2.2 -1.0 L1-L4 0.953 -1.9 -0.7 NOTE: All evaluable vertebrae are used for classification. Data for the hip is as follows: REGION BMD (g/cm/cm) T-SCORE Z-SCORE Neck 0.726 -2.2 -1.0 TOTAL 0.749 -2.1 -1.2 NOTE: The femoral neck or total proximal femur, whichever is lowest, is used for classification. IMPRESSION WHO CLASSIFICATION BASED ON THE INTERNATIONAL REFERENCE STANDARD IS OSTEOPENIA. FRACTURE RISK IS INCREASED. RECOMMENDATION: Patients with diagnosis of osteoporosis or osteopenia should have regular bone mineral density assessment. For those eligible for Medicare, routine testing is allowed once every 2 years. Testing frequency can be increased for patients who have rapidly progressing disease or for those who are receiving medical therapy to restore bone mass. COMMENT World Health Organization (WHO) definitions for osteoporosis and osteopenia: NORMAL BMD: T-score at 1.0 or higher, fracture risk is low. OSTEOPENIA BMD: T-score between 1.0 and -2.5, fracture risk is increased. OSTEOPOROSIS BMD: T-score at 2.5 or lower, fracture risk high. National Osteoporosis Foundation recommends: 1. Obtain adequate dietary calcium (at least 1200 mg per day) and vitamin D (400 -800 international units per day). 2. Participate, as appropriate, in regular weightbearing and muscle- strengthening exercise. 3. Avoid tobacco use and reduce alcohol and caffeine intake. 4. For more detailed information see the website at www.NOF.org. TD: 09/17/2017 11:14 MTDLoraine
== END 2017-09-17 08:06 | disposition home or self-care (01) ==
LOC: DI 08:05
PROVIDERS: ATTEND Physician Assistant Medical
DX: Z78.0 Asymptomatic menopausal state (principal); M85.88 Other specified disorders of bone density and structure, other site
CPT/HCPCS: 77080

== ENCOUNTER 2017-09-18 08:28 | Emergency (ER) | payer MEDICAID ==
[2017-09-18 08:44] VITALS: BP 136/99
--- NOTE | 2017-09-18 09:27 | ED Physician Documentation ---
History of Present Illness - Stated complaint Stated Complaint: FACIAL SWELLING - Chief complaint Chief Complaint: Heent - Additonal information Additional information: hx from pt has 2 small swollen spots on her face and thinks she was bitten by an insect while sleeping took benadryl bonderizer otherwise well Review of Systems Constitutional: denies: Fever Throat: denies: Sore throat Respiratory: denies: Cough Skin: reports: Rash PD PAST MEDICAL HISTORY - Past Medical History Past Medical History: Yes Cardiovascular: Hypertension Respiratory: None Endocrine/Autoimmune: None Psych: Anxiety Musculoskeletal: Osteoarthritis, Fatigue, Chronic back pain - Past Surgical History Past Surgical History: No - Present Medications Home Medications: Ambulatory Orders Medication Instructions Recorded Confirmed Lisinopril [Lisinopril] 10 mg PO DAILY 12/26/16 09/14/17 Cyclobenzaprine [Flexeril] 10 mg PO TID PRN #20 tablet 09/14/17 Lidocaine Patch 5% [Lidoderm Patch] 1 each TOP DAILY PRN #10 patch 09/14/17 Ondansetron Odt [Zofran] 4 mg TL Q6H PRN #10 tablet 09/14/17 Potassium Chloride 10 meq PO DAILY 09/14/17 09/14/17 Hydrocortisone 1% Oint 1 applic TP BID PRN #1 oint...g. 09/18/17 [Hydrocortisone] - Allergies Allergies/Adverse Reactions: Allergies Allergy/AdvReac Type Severity Reaction Status Date / Time ibuprofen AdvReac Unknown Verified 09/18/17 08:44 - Social History Does the pt smoke?: No Smoking Status: Never smoker Does the pt drink ETOH?: Yes Does the pt have substance abuse?: No - Immunizations Immunizations are current?: Yes - POLST Patient has POLST: No PD ED PE NORMAL - Vitals Vital signs reviewed: Yes - HEENT HEENT: Atraumatic, PERRL, Other (two small swollen erythematous spots - L FH and R cheek, no abscess etc) - Cardiac Cardiac: RRR - Respiratory Respiratory: No respiratory distress Results - Vitals Vitals: Vital Signs - 24 hr 09/18/17 08:41 Temperature 37.1 C Heart Rate 107 H Respiratory 18 Rate Blood Pressure 136/99 H O2 Saturation 100 Oxygen O2 Source Room air PD MEDICAL DECISION MAKING - ED course ED course: HR noted may be 2/2 benadryl pt is well, no fever, no other concerns etc Departure - Departure Disposition: 01 Home, Self Care Clinical Impression: Insect bites Qualifiers: Encounter type: initial encounter Qualified Code(s): W57.XXXA - Bitten or stung by nonvenomous insect and other nonvenomous arthropods, initial encounter Condition: Good Instructions: ED Bite Insect Prescriptions: Hydrocortisone 1% Oint [Hydrocortisone] 1 applic TP BID PRN #1 oint...g. PRN Reason: insect bite
== END 2017-09-18 09:35 | disposition home or self-care (01) ==
LOC: ED 08:28
DX: I10 Essential (primary) hypertension (principal); M19.90 Unspecified osteoarthritis, unspecified site; S00.86XA Insect bite (nonvenomous) of other part of head, initial encounter; W57.XXXA Bitten or stung by nonvenomous insect and other nonvenomous arthropods, initial encounter
CPT/HCPCS: 99283

== ENCOUNTER 2017-09-29 10:20 | Outpatient (CLI) | payer MEDICAID ==
[2017-09-29 18:17] LABS: ALBUMIN 4.3 g/dL (3.2-5.5); ALBUMIN/GLOBULIN RATIO 1.1 (1.0-2.2); BILIRUBIN,TOTAL 0.9 mg/dL (0.2-1.0); CALCIUM 9.3 mg/dL (8.5-10.3); CREATININE 0.5 mg/dL (0.4-1.0); TOTAL PROTEIN 8.1 g/dL (6.7-8.2)
[2017-09-30 13:32] LABS: HEPATITIS B SURFACE ANTIGEN NON-REACTIVE (NON-REACTIVE)
== END 2017-09-29 10:21 | disposition home or self-care (01) ==
LOC: LAB.F 10:20
PROVIDERS: ATTEND Physician Assistant Medical
DX: R94.5 Abnormal results of liver function studies (principal)
CPT/HCPCS: 36415; 80053; 86704; 87340

== ENCOUNTER 2017-11-01 15:11 | Outpatient (CLI) | payer MEDICAID ==
[2017-11-01 17:46] LABS: BILIRUBIN,URINE NEGATIVE (NEGATIVE); GLUCOSE, URINE (UA) NEGATIVE (NEGATIVE); KETONES,URINE (UA) NEGATIVE (NEGATIVE); LEUKOCYTE ESTERASE, URINE TRACE (NEGATIVE); NITRITE,URINE NEGATIVE (NEGATIVE); OCCULT BLOOD,URINE SMALL (NEGATIVE); PROTEIN,URINE NEGATIVE (NEGATIVE); UROBILINOGEN,URINE 0.2 (NORMAL) E.U./dL (NORMAL)
[2017-11-01 17:54] LABS: BASOPHILS # (AUTO) 0.1 10^3/uL (0.0-0.1); BASOPHILS % (AUTO) 0.8 %; EOSINOPHILS # (AUTO) 0.2 10^3/uL (0.0-0.7); HGB - HEMOGLOBIN 12.9 g/dL (12.0-16.0); LYMPHOCYTES # (AUTO) 2.8 10^3/uL (1.5-3.5); LYMPHOCYTES % (AUTO) 33.6 %; MEAN CORPUSCULAR HEMOGLOBIN 33.9 pg (27.0-31.0); MEAN CORPUSCULAR VOLUME 99.9 fL (81.0-99.0); MEAN PLATELET VOLUME 8.1 fL (7.9-10.8); MONOCYTES # (AUTO) 0.8 10^3/uL (0.0-1.0); MONOCYTES % (AUTO) 9.6 %; NEUTROPHILS # (AUTO) 4.4 10^3/uL (1.5-6.6); PLT - PLATELET COUNT 284 10^3/uL (130-450); RED CELL DISTRIBUTION WIDTH 14.5 % (12.0-15.0); WHITE BLOOD COUNT 8.3 x10^3/uL (4.8-10.8)
[2017-11-01 18:02] LABS: CLARITY,URINE CLEAR (CLEAR)
[2017-11-01 18:15] LABS: BACTERIA,URINE Few /HPF (None Seen); CRYSTALS,URINE >50 Calcium Oxalate /LPF; SQUAMOUS EPITHELIAL CELL,UR MANY Squamous (<= Few)
[2017-11-01 18:36] LABS: ALBUMIN 4.1 g/dL (3.2-5.5); ALBUMIN/GLOBULIN RATIO 1.2 (1.0-2.2); BILIRUBIN,TOTAL 0.6 mg/dL (0.2-1.0); CALCIUM 9.3 mg/dL (8.5-10.3); CREATININE 0.6 mg/dL (0.4-1.0); TOTAL PROTEIN 7.5 g/dL (6.7-8.2)
== END 2017-11-01 15:12 | disposition home or self-care (01) ==
LOC: LAB.F 15:11
PROVIDERS: ATTEND Physician Assistant Medical
DX: I10 Essential (primary) hypertension (principal); E87.6 Hypokalemia; R30.0 Dysuria
CPT/HCPCS: 80053; 81001; 85025; 87086

== ENCOUNTER 2017-11-04 09:01 | Outpatient (CLI) | payer MEDICAID ==
--- NOTE | 2017-11-04 16:04 | Mammography Report ---
Procedure Date: 11/04/2017 Accession Number: [id number] / [id number] Procedure: [facility] - Diag Special Views Dig RT CPT Code: FULL RESULT: EXAM: Diag Special Views Dig RT DATE: 11/04/2017 10:12 AM CLINICAL HISTORY: 61-year-old female recalled from screening for a right breast architectural distortion. TECHNIQUE: Right CC, MLO and ML views. COMPARISON: 09/17/2017, 01/06/2016. FINDINGS: The breasts demonstrate heterogeneously dense fibroglandular parenchyma bilaterally. The previously identified architectural distortion is identified as tissue overlap. IMPRESSION: Benign findings RECOMMENDATION: Recommend routine annual Screening mammography unless otherwise clinically indicated. BIRADS CATEGORY 2: Benign findings STANDARD QUALIFYING STATEMENTS: 1. This examination was reviewed with the aid of Computer-Aided Detection (CAD). 2. A negative or benign imaging report should not delay biopsy if clinically suspicious findings are present. Consider surgical consultation if warrented. More than 5% of cancers are not identified by imaging. 3. Dense breasts may obscure an underlying neoplasm.
== END 2017-11-04 09:02 | disposition home or self-care (01) ==
LOC: DI 09:01
PROVIDERS: ATTEND Physician Assistant Medical
DX: R92.8 Other abnormal and inconclusive findings on diagnostic imaging of breast (principal)

== ENCOUNTER 2018-02-23 05:58 | Day surgery (SDC) | payer MEDICAID ==
--- NOTE | 2018-02-21 17:07 | PREOP HISTORY & PHYSICAL ---
DATE OF ADMISSION: 02/23/2018 Physician: Mery Garces DO FACOG HISTORY OF PRESENT ILLNESS: The patient is a 62-year-old G1, P1-0-0-1, with a history of SONY 1 by colposcopic biopsy. Ashlie is a patient of Yolette Land at [facility]. Ashlie had a Pap smear there, which was significant for the high-risk HPV virus. The Pap smear itself was negative. Given the HPV virus, patient was sent over here for colposcopy. On 01/03/2018, she received a colposcopy and cervical biopsy showed that she had SONY 1. In addition, the colposcopy was unsatisfactory because the transitional zone was not adequately visualized. I recommended to the patient that we proceed to a cold knife cone biopsy. I discussed with patient the risks, benefits, alternatives, indications, and expectations of cold knife cone biopsy. Ashlie understands that despite cold knife cone biopsy being diagnostic and therapeutic, she still will require frequent cytological visits to assure that her dysplasia has been resolved. I discussed with her the risk of hemorrhage, infection, damage to surrounding organs, which may include, but are not limited to inadvertent laceration, cauterization or ligation of adjacent bladder, ureters and rectum. After all of Ashlie's questions were answered to her satisfaction, she verbalized her desire to proceed with surgery. Consent forms have been signed. PAST MEDICAL HISTORY 1. Back pain. 2. Osteopenia. 3. Hypertension. 4. Sacral foramina stenosis. 5. Posttraumatic stress disorder. 6. Childhood nephritis. PAST SURGICAL HISTORY: Bilateral kidney biopsy. MEDICATIONS 1. Ventolin HFA. 2. Lisinopril 10 mg 1 tab p.o. daily. ALLERGIES 1. NSAIDS, WHICH CAUSES HEMATURIA. 2. CODEINE CAUSES HER TO BE NAUSEATED. 3. GABAPENTIN CAUSES HER TO BE ANGRY IN APPEARANCE. 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 She was, at one point, taking 2 tabs of [place] due to her chronic back pain. The pain was so bad she could not sleep. Denies any smoking or illicits. She does drink alcohol on a social basis. She has a son, Carlyle, who lives on the [place]. She has 2 granddaughters, Juanis and Daryl. PAST SURGICAL HISTORY: One term spontaneous vaginal delivery at term, 7 pounds 12 ounces. PAST GYNECOLOGIC HISTORY: Menopause at age 40 and denies any history of hormone replacement. Mammograms have been within normal limits. She states that she had one Pap smear that was abnormal in [place] about 7-8 years ago, which resulted in a cryotherapy. FAMILY HISTORY: Sister had breast cancer and committed suicide secondary to rape. Mother of myocardial infarction and was noted to also have a high- grade ductal carcinoma. Brother of lymphoma. REVIEW OF SYSTEMS: Negative unless otherwise stated. PHYSICAL EXAMINATION VITAL SIGNS: Weight is 159 pounds, height is 67 inches, BMI is 25, blood pressure 150/98. GENERAL: Ashlie is a well-developed, well-nourished, female, in no apparent distress. She is alert and oriented x3. Ashlie is very pleasant, but does have an anxious affect. HEENT: Within normal limits. CARDIOVASCULAR: Rate is regular. No murmurs or rubs. LUNGS: Lungs are clear to auscultation bilaterally. ABDOMEN: Soft, nontender. LABORATORY DATA: Recent labs on 11/01/2017 show a white count of 9.3, H and H of 12.9 and 38.0, platelets of 284, creatinine 0.6, AST 49. ASSESSMENT 1. A 62-year-old G1, P1-0-0-1. 2. SONY 1 with unsatisfactory colposcopy. ASSESSMENT AND PLAN 1. We will proceed to a scheduled cold knife cone biopsy with ECC on 02/23/2018. 2. Prescription for Vicodin for breakthrough pain have been given to Ashlie. 3. I anticipate seeing Ashlie in 2 weeks for routine postoperative visit. 4. Ashlie is to call should she have any worsening fever, chill, abdominal pains or vaginal bleeding. TD: 02/21/2018 15:57 JAYNA
[2018-02-23] MEDS ORDERED: ACETAMINOPHEN 1,000 MG/100 ML 100 ML IV ONE (06:26)
[2018-02-23] MEDS ORDERED: CELECOXIB 100 MG CAPSULE PO ONE (06:26)
[2018-02-23] MEDS ORDERED: GABAPENTIN 400 MG CAPSULE ONE (06:27)
[2018-02-23] MEDS ORDERED: DEXAMETHASONE 4 MG/ML VIAL IVP ONE (06:30)
[2018-02-23] MEDS ORDERED: PROPOFOL 200 MG/20 ML VIAL IVP ONE (06:30)
[2018-02-23] MEDS ORDERED: fentaNYL 100 MCG/2 ML VIAL IVP ONE (06:30)
[2018-02-23] MEDS ORDERED: MIDAZOLAM 2 MG/2 ML VIAL IVP ONE (06:30)
[2018-02-23] MEDS ORDERED: LIDOCAINE-MPF 2% 5 ML VIAL IM ONE (06:30)
[2018-02-23] MEDS ORDERED: ONDANSETRON 4 MG/2 ML VIAL IVP ONE (06:30)
[2018-02-23] MEDS ORDERED: LACTATED RINGERS 1,000 ML IV ONE (07:01)
--- NOTE | 2018-02-23 07:06 | ANESTHESIA ---
Pre-Anesthesia VS, & Labs - Diagnosis cervical dysplagia - Procedure cold knife cone biopsy Vital Signs: Temp Pulse Resp BP Pulse Ox 36.6 C 110 H 16 114/98 H 97 02/23/18 06:40 02/23/18 06:40 02/23/18 06:40 02/23/18 06:40 02/23/18 06:40 Height 5 ft 6 in Weight (kg) 70.4 kg Body Mass Index 23.3 - NPO >8 hours - Is Patient ?: No Home Medications and Allergies Lisinopril 10 mg PO DAILY 12/26/16 Potassium Chloride 10 meq PO DAILY 09/14/17 Allergies/Adverse Reactions: Allergies Allergy/AdvReac Type Severity Reaction Status Date / Time ibuprofen AdvReac Unknown Verified 09/18/17 08:44 Anes History & Medical History - Anesthetic History Anesthesia Complications: reports: No previous complications - Medical History Cardiovascular: reports: Hypertension Pulmonary: reports: Other (patient denies) Gastrointestinal: reports: None Urinary: reports: None Musculoskeletal: reports: Osteoarthritis, Fatigue, Chronic back pain Endocrine/Autoimmune: reports: None Skin: reports: None Smoking Status: Never smoker Exam General: Alert Dental: WNL Mouth Openin Fingerbreadth Mallampati classification: I Thyromental Distance: greater than 6 cm Respiratory: Lungs clear Cardiovascular: Regular rate Mental/Cognitive Status: Alert/Oriented X3 Plan Anesthesia Type: General Consent for Procedure(s) Verified and Reviewed: Yes Code Status: Attempt Resuscitation ASA classification: 2-Mild systemic disease Is this case an emergency?: No
[2018-02-23] MEDS ORDERED: LIDOCAINE 1%-EPI 1:100000 30 ML MDV ONE (07:09)
[2018-02-23] MEDS ORDERED: IODINE/POTASSIUM IODIDE 8 ML SOLUTION TOP ONE ×4 (07:10→07:59)
[2018-02-23] MEDS ORDERED: FERRIC SUBSULFATE 8 ML SOLUTION (FOR OR) TOP ONE (07:58)
[2018-02-23] MEDS ORDERED: LIDOCAINE 1%-EPI 1:100000 30 ML MDV SUBQ ONE ×2 (07:58)
[2018-02-23] MEDS ORDERED: HYDROmorphone 0.5 MG/0.5 ML SYRINGE IVP PRN (08:34)
[2018-02-23] MEDS ORDERED: HYDROcod/ACETAM 5/325 MG TABLET PO PRN (08:34)
[2018-02-23] MEDS ORDERED: LORazepam 2 MG/ML VIAL IVP PRN (08:34)
[2018-02-23] MEDS ORDERED: ONDANSETRON 4 MG/2 ML VIAL IVP PRN (08:34)
--- NOTE | 2018-02-23 08:34 | OPERATIVE REPORT ---
Operative Report - Other Other Information/Narrative: Date of Operation: 02/23/2018 Surgeon: Mery Garces DO FACOG Welding Equipment Sales Representative: None Shooter Helper: Ilana Gorman CRNA Anesthesia: LMA Pre-op Dx: 1. 62 yo 2. SONY 1 Post-op Dx: 1. 62 yo 2. SONY 1 Procedure: Cold knife cone biopsy Findings: Stenotic os, but otherwise cervix and vagina within normal limits. No masses or ulcerations seen. Specimens: Cervical cone biopsy Drains: None EBL: 10 mL Complications: None Brief History: This is a patient of [facility]. She had a pap smear with her primary care provider revealing a normal pap smear, but positive for the high risk HPV virus. A subsequent colposcopy revealed SONY 1. The colposcopy was unsatisfactory for the lack of vizualizing the transitional zone. I suspect this was secondary to her history of cryotherapy. I discussed with her the risks, benefits, alternatives, indications and expectations of a cold knife cone biopsy. Included in the discussion were the risks of infection, hemorrhage and damage to surrounding organs which may include, but is not limited to, an inadvertent laceration, cauterization or ligation of the adjacent intestines, ureters and bladder. After all of the patients questions were answered to her satisfaction, she verbalizes her desire to proceed to the aforementioned surgery. Consents were signed. DESCRIPTION OF PROCEDURE: Patient was identified and consented, taken to the operating room with IV access already in place. Sequential compression devices were placed on her lower extremities and turned on. She was then given satisfactory LMA anesthesia as per Ilana Gorman. She was then prepped and draped in normal sterile fashion in lithotomy position using Yellofins stirrups. Her bladder was drained with in and out catheter. A timeout was performed which correctly identified patient, site of the procedure and the procedure itself. An open-sided speculum was placed in the vagina and 2 stay sutures were placed at the 3 and 9 o'clock areas. The cervix was then serially injected with 1% lidocaine with epinephrine. Approximately 20 mL was used. Lugol's solution was placed on the cervix and the entire ectocervix absorbed the Lugol's. There were no areas of defect. A cold knife cone biopsy was then performed. A tag was placed at the 6 O'clock area of the biopsy specimen. The cervical bed was then cauterized, and then a single running locked stitch of 0 Vicryl was used to obtain hemostasis. Hemostasis was noted again. Sponge, lap and needle counts were correct x 2 as per nurse report. Patient tolerated the procedure well and was taken back to recovery room in stable condition. She will be discharged to home later today after postoperative criteria have been met. Patient will see me in 2 weeks for a routine postop visit. She does have medications for postoperative pain control.
[2018-02-23 09:39] VITALS: BP 130/86
== END 2018-02-23 05:59 | disposition home or self-care (01) ==
LOC: SDS 05:58
PROVIDERS: ATTEND Obstetrics & Gynecology
PROC: 0UBC7ZX Excision of Cervix, Via Natural or Artificial Opening, Diagnostic (ICD-10-PCS; principal; 2018-02-23 07:30)
DX: N87.0 Mild cervical dysplasia (principal); I10 Essential (primary) hypertension; M85.80 Other specified disorders of bone density and structure, unspecified site; M48.08 Spinal stenosis, sacral and sacrococcygeal region; F43.10 Post-traumatic stress disorder, unspecified; M54.9 Dorsalgia, unspecified; Z79.51 Long term (current) use of inhaled steroids
CPT/HCPCS: 57520; A9270; J0131; J7120

== ENCOUNTER 2018-06-03 12:05 | Outpatient (CLI) | payer MEDICAID ==
--- NOTE | 2018-06-03 14:56 | XRAY Report ---
Reason: BACK PAIN,LUMBAR,WITH RADICULOPATHY,DEGENERATIVE D Procedure Date: 06/03/2018 Accession Number: [id number] / [id number] Procedure: XR - Lumbar Spine Complete CPT Code: FULL RESULT: EXAM: LUMBOSACRAL SPINE RADIOGRAPHY EXAM DATE: 06/03/2018 12:55 PM. CLINICAL HISTORY: BACK PAIN,LUMBAR,WITH RADICULOPATHY,DEGENERATIVE D. COMPARISONS: None. TECHNIQUE: 5 views, including oblique views. FINDINGS: Alignment: Minimal scoliosis. No listhesis. Bones: 5 lumbar vertebrae. Anterior compression fracture of L1; this appears old. No definite acute fracture or other bone lesion. Disks: Disk space narrowing at L4-L5 and L5-S1. Other disk spaces preserved. Facets: Mild degenerative changes at L4-L5 and L5-S1, right more than left. Sacroiliac Joints: Unremarkable. Soft Tissues: Unremarkable. IMPRESSION: 1. Old anterior compression fracture of L1. 2. Degenerative changes most marked at L4-L5 and L5-S1. RADIA
== END 2018-06-03 12:06 | disposition home or self-care (01) ==
LOC: DI 12:05
PROVIDERS: ATTEND Nurse Practitioner
DX: M51.17 Intervertebral disc disorders with radiculopathy, lumbosacral region (principal); M51.16 Intervertebral disc disorders with radiculopathy, lumbar region; M47.26 Other spondylosis with radiculopathy, lumbar region; M47.27 Other spondylosis with radiculopathy, lumbosacral region
CPT/HCPCS: 72110

== ENCOUNTER 2018-08-21 11:56 | Observation (INO) | payer MEDICAID ==
[2018-08-21 12:38] LABS: BASOPHILS # (AUTO) 0.1 10^3/uL (0.0-0.1); BASOPHILS % (AUTO) 0.8 %; HGB - HEMOGLOBIN 15.4 g/dL (12.0-16.0); LYMPHOCYTES # (AUTO) 2.1 10^3/uL (1.5-3.5); LYMPHOCYTES % (AUTO) 13.9 %; MEAN CORPUSCULAR HEMOGLOBIN 31.7 pg (27.0-31.0); MEAN CORPUSCULAR HGB CONC 33.8 g/dL (32.0-36.0); MEAN CORPUSCULAR VOLUME 93.9 fL (81.0-99.0); MEAN PLATELET VOLUME 7.4 fL (7.9-10.8); MONOCYTES % (AUTO) 6.7 %; NEUTROPHILS # (AUTO) 11.9 10^3/uL (1.5-6.6); NEUTROPHILS % (AUTO) 78.6 %; PLT - PLATELET COUNT 502 10^3/uL (130-450); RED BLOOD COUNT 4.84 10^6/uL (4.20-5.40); RED CELL DISTRIBUTION WIDTH 13.9 % (12.0-15.0); WHITE BLOOD COUNT 15.1 x10^3/uL (4.8-10.8)
[2018-08-21] MEDS ORDERED: ONDANSETRON 4 MG/2 ML VIAL IVP STA (12:38)
[2018-08-21] MEDS ORDERED: SODIUM CHLORIDE 0.9% 1,000 ML IV ONE (12:38)
[2018-08-21] MEDS ORDERED: HYDROmorphone 1 MG/ML CARPUJECT IVP STA ×2 (12:38→15:07)
--- NOTE | 2018-08-21 12:41 | ED Physician Documentation ---
PD HPI ABD PAIN - Stated complaint Stated Complaint: ABD PX,VOMITING - Chief complaint Chief Complaint: Abd Pain - History obtained from History obtained from: Patient - History of Present Illness Timing - onset: Last night (This is a 62-year-old woman with history of hypertension and childhood nephritis who presents with upper abdominal pain that started yesterday afternoon and has been progressively worse since then. It does not migrate or radiate except a briefly radiated around to the left upper quadrant. She has been vomiting and having diarrhea from it, no blood from either end. No recent travel or sick contacts. No history of abdominal surgeries. She is never had what ever this is before.) Review of Systems Ten Systems: 10 systems reviewed and negative Constitutional: reports: Reviewed and negative Throat: reports: Reviewed and negative Cardiac: reports: Reviewed and negative Respiratory: reports: Reviewed and negative PD PAST MEDICAL HISTORY - Past Medical History Cardiovascular: Hypertension Respiratory: Other (patient denies) Endocrine/Autoimmune: None GI: None : None Psych: Anxiety Musculoskeletal: Osteoarthritis, Fatigue, Chronic back pain Derm: None - Past Surgical History Past Surgical History: No - Present Medications Home Medications: Ambulatory Orders Medication Instructions Recorded Confirmed Lisinopril 10 mg PO DAILY 12/26/16 09/14/17 Cyclobenzaprine [Flexeril] 10 mg PO TID PRN #20 tablet 09/14/17 Ondansetron Odt [Zofran] 4 mg TL Q6H PRN #10 tablet 09/14/17 Potassium Chloride 10 meq PO DAILY 09/14/17 09/14/17 Hydrocortisone 1% Oint 1 applic TP BID PRN #1 oint...g. 09/18/17 [Hydrocortisone] - Allergies Allergies/Adverse Reactions: Allergies Allergy/AdvReac Type Severity Reaction Status Date / Time ibuprofen AdvReac Unknown Verified 09/18/17 08:44 - Social History Does the pt smoke?: No Smoking Status: Never smoker Does the pt drink ETOH?: Yes Does the pt have substance abuse?: No - Family History Family history: reports: Non contributory - Immunizations Immunizations are current?: Yes - POLST Patient has POLST: No PD ED PE NORMAL - Vitals Vital signs reviewed: Yes - General General: Alert and oriented X 3, Other (Very polite, seems uncomfortable and slightly hypervigilant.) - HEENT HEENT: PERRL, EOMI - Neck Neck: Supple, no meningeal sign, No bony TTP - Cardiac Cardiac: Other (Tachycardic but regular without murmur) - Respiratory Respiratory: No respiratory distress, Clear bilaterally - Abdomen Abdomen: Normal bowel sounds, Soft, Other (Mild upper abdominal tenderness without surgical signs) - Back Back: No CVA TTP, No spinal TTP - Derm Derm: Normal color, Warm and dry - Extremities Extremities: No edema, No calf tenderness / cord - Neuro Neuro: Alert and oriented X 3, Normal speech Results - Vitals Vitals: Vital Signs - 24 hr 08/21/18 08/21/18 08/21/18 12:07 12:30 12:42 Temperature 36.2 C L Heart Rate 136 H 135 H 110 H Respiratory 24 18 Rate Blood Pressure 79/56 L 129/87 H 129/87 H O2 Saturation 100 98 08/21/18 08/21/18 08/21/18 13:12 13:30 14:00 Temperature Heart Rate 102 H 106 H 106 H Respiratory 16 14 14 Rate Blood Pressure 128/87 H 128/88 H 126/87 H O2 Saturation 94 93 92 08/21/18 08/21/18 14:30 15:00 Temperature Heart Rate 106 H 110 H Respiratory 12 12 Rate Blood Pressure 120/89 H 130/92 H O2 Saturation 92 97 Oxygen O2 Source Room air - EKG (time done) 1245 Rate: Rate (enter#) (137) Rhythm: NSR Spraggs: Normal Intervals: Normal NH QRS: Normal Ischemia: Non specific changes (flat lateral twaves) Computer interpretation: Agree with computer - Labs Labs: Laboratory Tests 08/21/18 08/21/18 08/21/18 12:23 12:23 12:23 WBC 15.1 H RBC 4.84 Hgb 15.4 Hct 45.4 MCV 93.9 MCH 31.7 H MCHC 33.8 RDW 13.9 Plt Count 502 H MPV 7.4 L Neut # (Auto) 11.9 H Lymph # (Auto) 2.1 [place] # (Auto) 1.0 Eos # (Auto) 0.0 Baso # (Auto) 0.1 Absolute Nucleated RBC 0.00 Nucleated RBC % 0.0 Sodium 131 L Potassium 3.8 Chloride 87 L Carbon Dioxide 22 Anion Gap 22.0 H BUN 12 Creatinine 0.9 Estimated GFR (MDRD) 64 L Glucose 169 H Lactic Acid Calcium 9.3 Total Bilirubin 1.5 H AST 101 H ALT 60 Alkaline Phosphatase 88 Troponin I < 0.04 Total Protein 8.7 H Albumin 4.9 Globulin 3.8 Albumin/Globulin Ratio 1.3 Lipase 33 Urine Color Urine Clarity Urine pH Ur Specific [place] Urine Protein Urine Glucose (UA) Urine Ketones Urine Occult Blood Urine Nitrite Urine Bilirubin Urine Urobilinogen Ur Leukocyte Esterase Urine RBC Urine WBC Ur Squamous Epith Cells Urine Bacteria Urine Casts Urine Mucus Ur Microscopic Review Urine Culture Comments Urine Opiates Screen Ur Oxycodone Screen Urine Methadone Screen Ur Propoxyphene Screen Ur Barbiturates Screen Ur Tricyclics Screen Ur Phencyclidine Scrn Ur Amphetamine Screen U Methamphetamines Scrn U Benzodiazepines Scrn Urine Cocaine Screen U Cannabinoids Screen Ethyl Alcohol 08/21/18 08/21/18 08/21/18 12:23 12:23 13:20 WBC RBC Hgb Hct MCV MCH MCHC RDW Plt Count MPV Neut # (Auto) Lymph # (Auto) [place] # (Auto) Eos # (Auto) Baso # (Auto) Absolute Nucleated RBC Nucleated RBC % Sodium Potassium Chloride Carbon Dioxide Anion Gap BUN Creatinine Estimated GFR (MDRD) Glucose Lactic Acid 7.6 H* 4.6 H* Calcium Total Bilirubin AST ALT Alkaline Phosphatase Troponin I Total Protein Albumin Globulin Albumin/Globulin Ratio Lipase Urine Color Urine Clarity Urine pH Ur Specific [place] Urine Protein Urine Glucose (UA) Urine Ketones Urine Occult Blood Urine Nitrite Urine Bilirubin Urine Urobilinogen Ur Leukocyte Esterase Urine RBC Urine WBC Ur Squamous Epith Cells Urine Bacteria Urine Casts Urine Mucus Ur Microscopic Review Urine Culture Comments Urine Opiates Screen Ur Oxycodone Screen Urine Methadone Screen Ur Propoxyphene Screen Ur Barbiturates Screen Ur Tricyclics Screen Ur Phencyclidine Scrn Ur Amphetamine Screen U Methamphetamines Scrn U Benzodiazepines Scrn Urine Cocaine Screen U Cannabinoids Screen Ethyl Alcohol < 5.0 08/21/18 13:55 WBC RBC Hgb Hct MCV MCH MCHC RDW Plt Count MPV Neut # (Auto) Lymph # (Auto) [place] # (Auto) Eos # (Auto) Baso # (Auto) Absolute Nucleated RBC Nucleated RBC % Sodium Potassium Chloride Carbon Dioxide Anion Gap BUN Creatinine Estimated GFR (MDRD) Glucose Lactic Acid Calcium Total Bilirubin AST ALT Alkaline Phosphatase Troponin I Total Protein Albumin Globulin Albumin/Globulin Ratio Lipase Urine Color YELLOW Urine Clarity CLEAR Urine pH 6.0 Ur Specific [place] 1.020 Urine Protein 30 H Urine Glucose (UA) NEGATIVE Urine Ketones NEGATIVE Urine Occult Blood SMALL H Urine Nitrite NEGATIVE Urine Bilirubin NEGATIVE Urine Urobilinogen 0.2 (NORMAL) Ur Leukocyte Esterase NEGATIVE Urine RBC 0-5 Urine WBC 0-3 Ur Squamous Epith Cells MOD Squamous H Urine Bacteria Few Urine Casts 3-5 Hyaline Casts Urine Mucus Marked Strands Ur Microscopic Review INDICATED Urine Culture Comments NOT INDICATED Urine Opiates Screen POSITIVE H Ur Oxycodone Screen NEGATIVE Urine Methadone Screen NEGATIVE Ur Propoxyphene Screen NEGATIVE Ur Barbiturates Screen NEGATIVE Ur Tricyclics Screen NEGATIVE Ur Phencyclidine Scrn NEGATIVE Ur Amphetamine Screen NEGATIVE U Methamphetamines Scrn NEGATIVE U Benzodiazepines Scrn NEGATIVE Urine Cocaine Screen NEGATIVE U Cannabinoids Screen NEGATIVE Ethyl Alcohol PD MEDICAL DECISION MAKING - ED course ED course: This is a 62-year-old woman who presents with acute progressive epigastric pain associated with vomiting diarrhea. She has a significant tachycardia. She had a single low blood pressure on check in which was not labor occurred later corroborated. She is minimally tender. Work-up was done showing a pretty significant lactic acidosis that improved quickly, a CT without pertinent positive findings but some in an incidental issues. Spoke with Dr. Bryan Pichardo, the on-call surgeon at 3:10 PM who recommends a right upper quadrant ultrasound and a blood observation on medicine. No antibiotics now. Spoke with Dr Vuong for obs at 1517 Departure - Departure Disposition: ED Place in Observation Clinical Impression: Lactic acidosis Abdominal pain Qualifiers: Abdominal location: epigastric Qualified Code(s): R10.13 - Epigastric pain Vomiting Qualifiers: Vomiting type: unspecified Vomiting Intractability: non-intractable Nausea presence: with nausea Qualified Code(s): R11.2 - Nausea with vomiting, unspecified Diarrhea Qualifiers: Diarrhea type: presumed infectious Qualified Code(s): R19.7 - Diarrhea, unspecified Condition: Serious
[2018-08-21 12:51] LABS: ALBUMIN 4.9 g/dL (3.2-5.5); ALBUMIN/GLOBULIN RATIO 1.3 (1.0-2.2); BILIRUBIN,TOTAL 1.5 mg/dL (0.2-1.0); CALCIUM 9.3 mg/dL (8.5-10.3); CREATININE 0.9 mg/dL (0.4-1.0); TOTAL PROTEIN 8.7 g/dL (6.7-8.2)
[2018-08-21] MEDS ORDERED: LACTATED RINGERS IV STA (13:02)
[2018-08-21] MEDS ORDERED: IOVERSOL 320 100 ML VIAL IVP ONE ×2 (13:27→16:14)
[2018-08-21 14:00] LABS: MUDS CUTOFF CONCENTRATIONS CUTOFF CONC BELOW:
[2018-08-21 14:09] LABS: BILIRUBIN,URINE NEGATIVE (NEGATIVE); GLUCOSE, URINE (UA) NEGATIVE (NEGATIVE); KETONES,URINE (UA) NEGATIVE (NEGATIVE); LEUKOCYTE ESTERASE, URINE NEGATIVE (NEGATIVE); NITRITE,URINE NEGATIVE (NEGATIVE); OCCULT BLOOD,URINE SMALL (NEGATIVE); PROTEIN,URINE 30 mg/dL (NEGATIVE); UROBILINOGEN,URINE 0.2 (NORMAL) E.U./dL (NORMAL)
[2018-08-21 14:16] LABS: CLARITY,URINE CLEAR (CLEAR)
[2018-08-21 14:21] LABS: RBC,URINE 0-5 /HPF (0-5); SQUAMOUS EPITHELIAL CELL,UR MOD Squamous (<= Few)
[2018-08-21 14:22] LABS: BACTERIA,URINE Few /HPF (None Seen); CASTS, URINE 3-5 Hyaline Casts /LPF; MUCUS,URINE Marked Strands
[2018-08-21 14:23] LABS: COCAINE SCREEN URINE NEGATIVE (NEGATIVE); METHAMPHETAMINES SCREEN, URINE NEGATIVE (NEGATIVE); OPIATE SCREEN, URINE POSITIVE (NEGATIVE)
[2018-08-21 14:24] LABS: AMPHETAMINE SCREEN,URINE NEGATIVE (NEGATIVE); BENZODIAZEPINES SCREEN, URINE NEGATIVE (NEGATIVE); METHADONE SCREEN, URINE NEGATIVE (NEGATIVE); OXYCODONE SCREEN, URINE NEGATIVE (NEGATIVE); PROPOXYPHENE SCREEN, URINE NEGATIVE (NEGATIVE); TRICYCLIC ANTIDEPRESSANT,URINE NEGATIVE (NEGATIVE)
--- NOTE | 2018-08-21 14:57 | CT Report ---
Reason: IV only, upper abd pain Procedure Date: 08/21/2018 Accession Number: [id number] / [id number] Procedure: CT - Abdomen/Pelvis W CPT Code: FULL RESULT: EXAM: CT ABDOMEN AND PELVIS EXAM DATE: 08/21/2018 02:04 PM. CLINICAL HISTORY: Upper abdominal pain. Nausea. Vomiting. COMPARISONS: None. TECHNIQUE: Routine helical CT imaging was performed through the abdomen and pelvis. IV contrast: OPTI 320 90 ML. Enteric contrast: No. Reconstructions: Coronal and sagittal. In accordance with CT protocol optimization, one or more of the following dose reduction techniques were utilized for this exam: automated exposure control, adjustment of mA and/or KV based on patient size, or use of iterative reconstructive technique. FINDINGS: Lung Bases: Bibasilar scar/atelectasis. Included portions of the heart are unremarkable. Small hiatal hernia. Liver: Diffuse fatty liver. Patent portal vein. No hepatic lesions. Gallbladder/Bile Ducts: Unremarkable. Spleen: Normal. Pancreas: Normal. Adrenal Glands: Normal. Kidneys: Normal. No masses or hydronephrosis. Peritoneal Cavity/Bowel: Stomach is mildly distended and unremarkable. No small bowel obstruction or small bowel wall thickening. No free air. Ingested structures or foreign bodies seen in the ascending colon/cecum. Diverticula are seen in the colon, largely the distal colon. No evidence of diverticulitis. The appendix is well visualized and normal. Pelvic Organs: Urinary bladder is unremarkable. In the right ovary is a low-attenuation lesion measuring 3.5 x 3 x 4.5 cm. No pelvic adenopathy. No pelvic free fluid. Vasculature: No aneurysms or other significant abnormality. Bones: Degenerative changes of the lower thoracic and lumbar spine. Chronic L1 compression deformity. Levoscoliosis of the lower lumbar spine. Lumbar facet arthropathy. Mild degenerative changes of both hip joints. Other: None. IMPRESSION: 1. Normal appendix. 2. Colonic diverticulosis. No diverticulitis. No bowel obstruction. 3. Diffuse fatty liver. 4. Normal CT appearance of the gallbladder and pancreas. No biliary ductal dilatation. 5. No nephrolithiasis or hydronephrosis. 6. Small hiatal hernia. 7. Right ovarian 4.5 cm low-attenuation likely cystic lesion. Follow-up nonemergent pelvic ultrasound evaluation recommended to continue to assess stability. RADIA
[2018-08-21] MEDS ORDERED: PROCHLORPERAZINE 10 MG/2 ML VIAL IVP PRN (15:28)
[2018-08-21] MEDS ORDERED: ACETAMINOPHEN 1,000 MG/100 ML 100 ML IV PRN (15:33)
[2018-08-21] MEDS ORDERED: BACLOFEN 10 MG TABLET PO PRN (15:34)
--- NOTE | 2018-08-21 15:42 | HISTORY & PHYSICAL EXAMINATION ---
Chief Complaint - Chief Complaint Chief Complaint: Right upper quadrant abdominal pain with associated N/V, diarrhea Abdominal Pain HPI - Admitted From Admitted from: ED - History Obtained From Records Reviewed: RN notes reviewed History obtained from: Patient, Family Exam limitations: No limitations - History of Present Illness HPI Comment/Other: This is a 62-year-old woman with history of hypertension, OA, meth use in past, anxiety, chronic back pain, and childhood nephritis who presents with upper abdominal pain that started yesterday afternoon and has been progressively worse since then. It does not migrate or radiate except a briefly radiated around to the left upper quadrant. She has been vomiting and having diarrhea from it, no blood from either end. No recent travel or sick contacts. No history of abdom inal surgeries. She is never had what ever this is before. On examination had patient has a unequivocal Romero sign, WBC is 15.1, thrombocytosis with platelets of 502, sodium 131, creatinine of 0.9 with a glucose of 169. AST was elevated at 101 with a T bilirubin of 1.5 lipase within normal limits, urine drug screen was positive for opiates which was administered in the emergency department. Of note patient has a history of prior meth use with a positive urine approximately 1 year ago. LA 7.6, CT abd shows SALAS, right ovarian non-ruptured cyst 4.5 cm, no fluid or KYLAH. Patient was given ap proximately 3 L of normal saline, After an hour lactic acid was down to 4.6, and presented initially with hypotension and tachycardia into the 130s with an EKG confirming a sinus tachycardia at 137 bpm, left atrial enlargement with nonspecific T wave abnormalities, troponin x1 was unremarkable. Patient denies chest pain, shortness of breath, Hematemesis, hematochezia, maculopapular rash, joint tenderness or swelling, recent travel or sick contacts. General surgery was consulted. PMH/PSH - Past Medical History Cardiovascular: positive: Hypertension Respiratory: positive: Other (patient denies) Endocrine/Autoimmune: positive: None GI: positive: None : positive: None Psych: positive: Anxiety Musculoskeletal: positive: Osteoarthritis, Fatigue, Chronic back pain Derm: positive: None MRSA Hx?: No Social & Family Hx - Social History Does the pt smoke?: No Smoking Status: Never smoker Does the pt drink ETOH?: Yes Does the pt have substance abuse?: No - POLST Patient has POLST: No Meds/Allgy - Home Medications Home Medications: Ambulatory Orders Medication Instructions Recorded Confirmed Lisinopril 10 mg PO DAILY 12/26/16 08/21/18 Potassium Chloride 10 meq PO DAILY 09/14/17 08/21/18 Baclofen [Lioresal] 10 mg PO TID PRN 08/21/18 08/21/18 Hydrocodone/Acetaminophen [[place] 1 each PO TID PRN 08/21/18 08/21/18 5-325 Tablet] - Allergies Allergies/Adverse Reactions: Allergies Allergy/AdvReac Type Severity Reaction Status Date / Time ibuprofen AdvReac Unknown Verified 09/18/17 08:44 Review of Systems - All Other Systems All Other Systems: reports: Reviewed and negative Prior Level of Functionality: Patient with ambulatory status With functional capacity at home with home ADLs Exam - Vital Signs Vital Signs: Vital Signs x48h Temp Pulse Resp BP Pulse Ox 08/21/18 15:30 96 12 126/85 H 92 08/21/18 15:00 110 H 12 130/92 H 97 08/21/18 14:30 106 H 12 120/89 H 92 08/21/18 14:00 106 H 14 126/87 H 92 08/21/18 13:30 106 H 14 128/88 H 93 08/21/18 13:12 102 H 16 128/87 H 94 08/21/18 12:42 110 H 18 129/87 H 98 08/21/18 12:30 135 H 129/87 H 08/21/18 12:07 36.2 C L 136 H 24 79/56 L 100 - Physical Exam General Appearance: positive: No acute distress, Alert, Anxious, Other (Calm cooperative, and nontoxic or ill-appearing) Eyes Bilateral: positive: Normal inspection, PERRL, EOMI ENT: positive: ENT inspection nml, Pharynx nml, Dry mucous membranes Neck: positive: Nml inspection, Thyroid nml, No JVD, Trachea midline. negative: Thyromegaly Respiratory: positive: Chest non-tender, No respiratory distress, Breath sounds nml Cardiovascular: positive: Regular rate & rhythm, No murmur, No gallop. negative: Irregularly irregular, JVD present, Systolic murmur, Gallop/S3, M[place]all p/S4, Friction rub Peripheral Pulses: positive: 2+ Abdomen: positive: No organomegaly, Tenderness (Right upper quadrant). negative: Guarding, Rebound, Bruit Skin: positive: Color nml, No rash. negative: Pallor, Skin rash Extremities: positive: Non-tender, Full ROM, Nml appearance Neurologic/Psychiatric: positive: Oriented x3, CN's nml (2-12) Results - Lab Results Lab results reviewed: Yes Fish Bones: 08/21/18 12:23 08/21/18 12:23 Other Lab Results: Lab Results x24hrs 08/21/18 08/21/18 08/21/18 Range/Units 13:55 13:20 12:23 WBC (4.8-10.8) x10^3/uL RBC (4.20-5.40) 10^6/uL Hgb (12.0-16.0) g/dL Hct (37.0-47.0) % MCV (81.0-99.0) fL MCH (27.0-31.0) pg MCHC (32.0-36.0) g/dL RDW (12.0-15.0) % Plt Count (130-450) 10^3/uL MPV (7.9-10.8) fL Neut # (Auto) (1.5-6.6) 10^3/uL Lymph # (Auto) (1.5-3.5) 10^3/uL [place] # (Auto) (0.0-1.0) 10^3/uL Eos # (Auto) (0.0-0.7) 10^3/uL Baso # (Auto) (0.0-0.1) 10^3/uL Absolute Nucleated RBC x10^3/uL Nucleated RBC % /100WBC Sodium (135-145) mmol/L Potassium (3.5-5.0) mmol/L Chloride (101-111) mmol/L Carbon Dioxide (21-32) mmol/L Anion Gap (6-13) BUN (6-20) mg/dL Creatinine (0.4-1.0) mg/dL Estimated GFR (MDRD) (>89) Glucose (70-100) mg/dL Lactic Acid 4.6 H* (0.5-2.2) mmol/L Calcium (8.5-10.3) mg/dL Total Bilirubin (0.2-1.0) mg/dL AST (10-42) IU/L ALT (10-60) IU/L Alkaline Phosphatase (42-121) IU/L Troponin I (<0.49) ng/mL Total Protein (6.7-8.2) g/dL Albumin (3.2-5.5) g/dL Globulin (2.1-4.2) g/dL Albumin/Globulin Ratio (1.0-2.2) Lipase (22-51) U/L Urine Color YELLOW Urine Clarity CLEAR (CLEAR) Urine pH 6.0 (5.0-7.5) PH Ur Specific [place] 1.020 (1.002-1.030) Urine Protein 30 H (NEGATIVE) mg/dL Urine Glucose (UA) NEGATIVE (NEGATIVE) mg/dL Urine Ketones NEGATIVE (NEGATIVE) mg/dL Urine Occult Blood SMALL H (NEGATIVE) Urine Nitrite NEGATIVE (NEGATIVE) Urine Bilirubin NEGATIVE (NEGATIVE) Urine Urobilinogen 0.2 (NORMAL) (NORMAL) E.U./dL Ur Leukocyte Esterase NEGATIVE (NEGATIVE) Urine RBC 0-5 (0-5) /HPF Urine WBC 0-3 (0-5) /HPF Ur Squamous Epith Cells MOD Squamous H (<= Few) Urine Bacteria Few (None Seen) /HPF Urine Casts 3-5 Hyaline Casts /LPF Urine Mucus Marked Strands Ur Microscopic Review INDICATED Urine Culture Comments NOT INDICATED Urine Opiates Screen POSITIVE H (NEGATIVE) Ur Oxycodone Screen NEGATIVE (NEGATIVE) Urine Methadone Screen NEGATIVE (NEGATIVE) Ur Propoxyphene Screen NEGATIVE (NEGATIVE) Ur Barbiturates Screen NEGATIVE (NEGATIVE) Ur Tricyclics Screen NEGATIVE (NEGATIVE) Ur Phencyclidine Scrn NEGATIVE (NEGATIVE) Ur Amphetamine Screen NEGATIVE (NEGATIVE) U Methamphetamines Scrn NEGATIVE (NEGATIVE) U Benzodiazepines Scrn NEGATIVE (NEGATIVE) Urine Cocaine Screen NEGATIVE (NEGATIVE) U Cannabinoids Screen NEGATIVE (NEGATIVE) Ethyl Alcohol < 5.0 mg/dL 08/21/18 08/21/18 08/21/18 Range/Units 12:23 12:23 12:23 WBC (4.8-10.8) x10^3/uL RBC (4.20-5.40) 10^6/uL Hgb (12.0-16.0) g/dL Hct (37.0-47.0) % MCV (81.0-99.0) fL MCH (27.0-31.0) pg MCHC (32.0-36.0) g/dL RDW (12.0-15.0) % Plt Count (130-450) 10^3/uL MPV (7.9-10.8) fL Neut # (Auto) (1.5-6.6) 10^3/uL Lymph # (Auto) (1.5-3.5) 10^3/uL [place] # (Auto) (0.0-1.0) 10^3/uL Eos # (Auto) (0.0-0.7) 10^3/uL Baso # (Auto) (0.0-0.1) 10^3/uL Absolute Nucleated RBC x10^3/uL Nucleated RBC % /100WBC Sodium 131 L (135-145) mmol/L Potassium 3.8 (3.5-5.0) mmol/L Chloride 87 L (101-111) mmol/L Carbon Dioxide 22 (21-32) mmol/L Anion Gap 22.0 H (6-13) BUN 12 (6-20) mg/dL Creatinine 0.9 (0.4-1.0) mg/dL Estimated GFR (MDRD) 64 L (>89) Glucose 169 H (70-100) mg/dL Lactic Acid 7.6 H* (0.5-2.2) mmol/L Calcium 9.3 (8.5-10.3) mg/dL Total Bilirubin 1.5 H (0.2-1.0) mg/dL AST 101 H (10-42) IU/L ALT 60 (10-60) IU/L Alkaline Phosphatase 88 (42-121) IU/L Troponin I < 0.04 (<0.49) ng/mL Total Protein 8.7 H (6.7-8.2) g/dL Albumin 4.9 (3.2-5.5) g/dL Globulin 3.8 (2.1-4.2) g/dL Albumin/Globulin Ratio 1.3 (1.0-2.2) Lipase 33 (22-51) U/L Urine Color Urine Clarity (CLEAR) Urine pH (5.0-7.5) PH Ur Specific [place] (1.002-1.030) Urine Protein (NEGATIVE) mg/dL Urine Glucose (UA) (NEGATIVE) mg/dL Urine Ketones (NEGATIVE) mg/dL Urine Occult Blood (NEGATIVE) Urine Nitrite (NEGATIVE) Urine Bilirubin (NEGATIVE) Urine Urobilinogen (NORMAL) E.U./dL Ur Leukocyte Esterase (NEGATIVE) Urine RBC (0-5) /HPF Urine WBC (0-5) /HPF Ur Squamous Epith Cells (<= Few) Urine Bacteria (None Seen) /HPF Urine Casts /LPF Urine Mucus Ur Microscopic Review Urine Culture Comments Urine Opiates Screen (NEGATIVE) Ur Oxycodone Screen (NEGATIVE) Urine Methadone Screen (NEGATIVE) Ur Propoxyphene Screen (NEGATIVE) Ur Barbiturates Screen (NEGATIVE) Ur Tricyclics Screen (NEGATIVE) Ur Phencyclidine Scrn (NEGATIVE) Ur Amphetamine Screen (NEGATIVE) U Methamphetamines Scrn (NEGATIVE) U Benzodiazepines Scrn (NEGATIVE) Urine Cocaine Screen (NEGATIVE) U Cannabinoids Screen (NEGATIVE) Ethyl Alcohol mg/dL 08/21/18 Range/Units 12:23 WBC 15.1 H (4.8-10.8) x10^3/uL RBC 4.84 (4.20-5.40) 10^6/uL Hgb 15.4 (12.0-16.0) g/dL Hct 45.4 (37.0-47.0) % MCV 93.9 (81.0-99.0) fL MCH 31.7 H (27.0-31.0) pg MCHC 33.8 (32.0-36.0) g/dL RDW 13.9 (12.0-15.0) % Plt Count 502 H (130-450) 10^3/uL MPV 7.4 L (7.9-10.8) fL Neut # (Auto) 11.9 H (1.5-6.6) 10^3/uL Lymph # (Auto) 2.1 (1.5-3.5) 10^3/uL [place] # (Auto) 1.0 (0.0-1.0) 10^3/uL Eos # (Auto) 0.0 (0.0-0.7) 10^3/uL Baso # (Auto) 0.1 (0.0-0.1) 10^3/uL Absolute Nucleated RBC 0.00 x10^3/uL Nucleated RBC % 0.0 /100WBC Sodium (135-145) mmol/L Potassium (3.5-5.0) mmol/L Chloride (101-111) mmol/L Carbon Dioxide (21-32) mmol/L Anion Gap (6-13) BUN (6-20) mg/dL Creatinine (0.4-1.0) mg/dL Estimated GFR (MDRD) (>89) Glucose (70-100) mg/dL Lactic Acid (0.5-2.2) mmol/L Calcium (8.5-10.3) mg/dL Total Bilirubin (0.2-1.0) mg/dL AST (10-42) IU/L ALT (10-60) IU/L Alkaline Phosphatase (42-121) IU/L Troponin I (<0.49) ng/mL Total Protein (6.7-8.2) g/dL Albumin (3.2-5.5) g/dL Globulin (2.1-4.2) g/dL Albumin/Globulin Ratio (1.0-2.2) Lipase (22-51) U/L Urine Color Urine Clarity (CLEAR) Urine pH (5.0-7.5) PH Ur Specific [place] (1.002-1.030) Urine Protein (NEGATIVE) mg/dL Urine Glucose (UA) (NEGATIVE) mg/dL Urine Ketones (NEGATIVE) mg/dL Urine Occult Blood (NEGATIVE) Urine Nitrite (NEGATIVE) Urine Bilirubin (NEGATIVE) Urine Urobilinogen (NORMAL) E.U./dL Ur Leukocyte Esterase (NEGATIVE) Urine RBC (0-5) /HPF Urine WBC (0-5) /HPF Ur Squamous Epith Cells (<= Few) Urine Bacteria (None Seen) /HPF Urine Casts /LPF Urine Mucus Ur Microscopic Review Urine Culture Comments Urine Opiates Screen (NEGATIVE) Ur Oxycodone Screen (NEGATIVE) Urine Methadone Screen (NEGATIVE) Ur Propoxyphene Screen (NEGATIVE) Ur Barbiturates Screen (NEGATIVE) Ur Tricyclics Screen (NEGATIVE) Ur Phencyclidine Scrn (NEGATIVE) Ur Amphetamine Screen (NEGATIVE) U Methamphetamines Scrn (NEGATIVE) U Benzodiazepines Scrn (NEGATIVE) Urine Cocaine Screen (NEGATIVE) U Cannabinoids Screen (NEGATIVE) Ethyl Alcohol mg/dL - Diagnostic Imaging Results Diagnostic Imaging Results: positive: Final report reviewed - EKG Results EKG Interpreted Independently: Yes EKG Comparison: positive: Old EKG unavailable Sepsis Event Note (H) - Evaluation Possible source of Sepsis: positive: GI tract/intra-abdominal - Sepsis Criteria Sepsis Criteria: WBC count greater than 12,000 or less than 4000, SBP less than 90 mmHg, Metabolic: lactate > 2 mmol/L Impression/Plan - Problem List Problem List: 1. SIRS (Tachycardia, leukocytosis, hypotension) 2. Acute gastroenteritis, likely viral induced 3. Acute dehydration with associated mild renal insufficiency 4. Electrolyte disturbance secondary to dehydration and GI losses 5. Right upper quadrant pain 6. Right ovarian nonruptured cyst measuring up to 4.5 cm 7. SALAS with associated elevated transaminases 8. History of prior meth use 9. Chronic back pain 10. Hyperglycemia Plan: Admit to MedSurg, OBS status, Tele, placed on LR and correction of electrolyte disturbances, check TSH due to sinus tachycardia as well as magnesium levels, obtain stool cx's, along with C. difficile, norovirus to be sent out PCR. Pain control with morphine, antiemetics, bowel Supportive care. Right upper quadrant ultrasound preliminary report shows no pericholecystic fluid with gallbladder wall edema or stones despite Romero sign present in the setting of transaminitis with a normal lipase. General surgery consultation was done with recommendations for deferring off of IV antibiotics for now despite SIRS criteria. Blood cultures x2. Nonruptured 4.5 cm right ovarian cyst to be followed up as outpatient. SALAS with transaminitis likely as a result of inflammatory process, however will rule out acute viral hepatitis with hip panel to follow. History of prior meth use however urine drug screen was positive for opiates only and this was given in the ED with Dilaudid. Chronic back pain will resume baclofen. Check am labs, A1c. Initiate DVT prophylaxis with SCD boots plus heparin. GI prophylaxis with IV Protonix CODE STATUS: Full code
[2018-08-21] MEDS ORDERED: LACTATED RINGERS 1,000 ML IV SCH (16:00)
[2018-08-21] MEDS: LACTATED RINGERS 1,000 ML IV SCH ×2 (16:15→21:06)
[2018-08-21] MEDS: SODIUM CHLORIDE FLUSH 0.9% 10 ML SYRINGE IVP PRN ×2 (16:16→20:13)
[2018-08-21] MEDS: SODIUM CHLORIDE FLUSH 0.9% 10 ML SYRINGE IVP SCH (16:20)
[2018-08-21] MEDS: PANTOPRAZOLE 40 MG VIAL IVP SCH (16:33)
[2018-08-21] MEDS: SUCRALFATE 1 GM/10 ML UDC PO SCH (16:34)
[2018-08-21] MEDS ORDERED: LORazepam 2 MG/ML VIAL IVP PRN (18:24)
--- NOTE | 2018-08-21 18:43 | Ultrasound Report ---
Reason: epigastric pain Procedure Date: 08/21/2018 Accession Number: [id number] / [id number] Procedure: US - Abdomen Limited CPT Code: FULL RESULT: EXAM: ABDOMEN ULTRASOUND LIMITED, RUQ EXAM DATE: 08/21/2018 03:56 PM. CLINICAL HISTORY: Epigastric pain. COMPARISON: None. TECHNIQUE: Real-time scanning was performed with static images obtained. FINDINGS: Liver: Diffusely echogenic, suggestive of steatosis 16.4. Main portal vein flow: Hepatopetal. Gallbladder: Normal. No stones, wall thickening, or sonographic Romero's sign. Biliary System: CBD measures 5 mm. No intrahepatic or extrahepatic ductal dilatation. Other: Normal appearing right kidney. No hydronephrosis. IMPRESSION: Hepatic steatosis. No other significant abnormality. RADIA
[2018-08-21] MEDS ORDERED: SODIUM CHLORIDE 0.9% 500 ML IV ONE (19:46)
--- NOTE | 2018-08-21 19:58 | CONSULTATION NOTE ---
Referring Provider Name of Referring Provider:: Dr. Vuong Consult Date: 08/21/18 Chief Complaint - Chief Complaint Chief Complaint: abd pain History of Present Illness - Admitted From Admitted From:: ER - History Obtained From Records Reviewed: yes History obtained from: pt, records Exam Limitations: none - History of Present Illness HPI Comment/Other: 62 yo female in her usual state of health until yesterday afternoon when she noted the sudden onset of sharp stabbing upper abdominal pain associated with multiple episodes of nonbloody N/V, which persisted until today prompting evaluation in the ER and admission for observation. She noted one loose no nbloody stool today since onset of sx; prior bowel function has been nl. No hx previous similar sx. No fever, chills, wt loss; no hx food intolerance, hepatitis/jaundice. She does have a hx of methamphetamine abuse but urine drug sceen was neg except for opiates. She takes Vicodin for chronic back pain. She reports a nl colonoscopy within the past 10 yrs. Neg Fh GI tumors. She reports feeling much better since arrival in the ER where she was treated with IVF and analgesics. Her N/V has resolved and her pain has markedly improved. She has been tolerating clear liquid diet well since admission. Evaluation with CT abd/pelvis showed colonic diverticulosis and a right adnexal cystic mass 4 cm in size, hepatic steatosis; and RUQ US showed fatty liver, ow were both essentially nl. There was no evidence of gallbladder disease, pneumoperitoneum, bowel obstruction, ischemic bowel, or free fluid in the abdominal cavity. No hx of PUD; no regular use of NSAIDs, minimal alcohol intake; no tobacco use; denies current use of recreational drugs. History - Past Medical History Cardiovascular: reports: Hypertension Respiratory: reports: Other (patient denies) Neuro: reports: None Endocrine/Autoimmune: reports: None GI: reports: None : reports: None Psych: reports: Anxiety Musculoskeletal: reports: Osteoarthritis, Fatigue, Chronic back pain Derm: reports: None MRSA Hx?: No - Family & Social History Family History Comment/Other: Neg for GI tumors; pos for lymphoma, breast cancer Living arrangement: At home - Substance History Use: Uses substance without health or social issues: NONE, Amphetamine (hx of same; none current) - POLST Patient has POLST: No Meds/Allgy - Home Medications Home Medications: Ambulatory Orders Medication Instructions Recorded Confirmed Lisinopril 10 mg PO DAILY 12/26/16 08/21/18 RX: Potassium Chloride 10 meq PO DAILY 09/14/17 08/21/18 Baclofen [Lioresal] 10 mg PO TID PRN 08/21/18 08/21/18 Hydrocodone/Acetaminophen [[place] 1 each PO TID PRN 08/21/18 08/21/18 5-325 Tablet] - Allergies Allergies/Adverse Reactions: Allergies Allergy/AdvReac Type Severity Reaction Status Date / Time ibuprofen AdvReac Unknown Verified 09/18/17 08:44 Review of Systems - Constitutional Constitutional: denies: Fever, Weight gain, Weight loss - Gastrointestinal Gastrointestinal: reports: Abdominal pain, Change in bowel habits (one loose nonbloody stool today). denies: Constipation Exam - Vital Signs Vital Signs: Vital Signs x48h Temp Pulse Pulse Resp BP BP Pulse Ox 08/21/18 16:14 36.6 C 97 18 138/83 H 96 08/21/18 15:30 96 12 126/85 H 92 08/21/18 15:00 110 H 12 130/92 H 97 08/21/18 14:30 106 H 12 120/89 H 92 08/21/18 14:00 106 H 14 126/87 H 92 08/21/18 13:30 106 H 14 128/88 H 93 08/21/18 13:12 102 H 16 128/87 H 94 08/21/18 12:42 110 H 18 129/87 H 98 08/21/18 12:30 135 H 129/87 H 08/21/18 12:07 36.2 C L 136 H 24 79/56 L 100 Conclusion/Plan - Diagnosis Diagnosis: Upper abdominal pain, N/V, leukocytosis, elevated lactate of unclear etiology. No evidence of ischemic bowel, perforated viscus, acute cholecystitis, an acute surgical abdomen or any acute surgical disease at present. The findings appear to be most consistent with acute gastroenteritis with volume depletion. She appeared volume depleted on arrival to the ER and this may have caused some of the lab abnormalities noted. She is clinically improving and appears n ontoxic. - Plan Plan: Agree with plans for observation, IVF, analgesics, PPI therapy, serial exams and labs. Will follow. Thanks, - Lab Results Lab results reviewed: Yes Fish Bones: 08/21/18 12:23 08/21/18 12:23 Other Lab Results: LFTs: Bili 1.5; AST 100; lipase nl. lactate 7, dropping to 5; troponin neg; UA neg. - Diagnostic Imaging Results Diagnostic Imaging Results: positive: Final report reviewed Diagnostic Imaging Results Comments: See HPI - EKG Results EKG Interpreted Independently: No EKG Findings: Sinus tach; LAE
[2018-08-21] MEDS: MORPHINE 2 MG/ML SYRINGE IVP PRN (20:12)
[2018-08-21] MEDS: HEPARIN 5,000 UNIT/ML VIAL SUBQ SCH (21:27)
[2018-08-22] MEDS: SODIUM CHLORIDE FLUSH 0.9% 10 ML SYRINGE IVP SCH ×2 (00:41→07:54)
[2018-08-22] MEDS: LACTATED RINGERS 1,000 ML IV SCH ×2 (02:10→07:54)
[2018-08-22 05:05] LABS: BASOPHILS # (AUTO) 0.1 10^3/uL (0.0-0.1); BASOPHILS % (AUTO) 0.8 %; EOSINOPHILS # (AUTO) 0.1 10^3/uL (0.0-0.7); EOSINOPHILS % (AUTO) 0.9 %; HGB - HEMOGLOBIN 11.9 g/dL (12.0-16.0); LYMPHOCYTES # (AUTO) 3.2 10^3/uL (1.5-3.5); LYMPHOCYTES % (AUTO) 42.3 %; MEAN CORPUSCULAR HEMOGLOBIN 32.4 pg (27.0-31.0); MEAN CORPUSCULAR HGB CONC 34.1 g/dL (32.0-36.0); MEAN CORPUSCULAR VOLUME 95.1 fL (81.0-99.0); MEAN PLATELET VOLUME 7.5 fL (7.9-10.8); MONOCYTES # (AUTO) 0.8 10^3/uL (0.0-1.0); MONOCYTES % (AUTO) 10.5 %; NEUTROPHILS # (AUTO) 3.5 10^3/uL (1.5-6.6); NEUTROPHILS % (AUTO) 45.5 %; PLT - PLATELET COUNT 303 10^3/uL (130-450); RED BLOOD COUNT 3.66 10^6/uL (4.20-5.40); WHITE BLOOD COUNT 7.6 x10^3/uL (4.8-10.8)
[2018-08-22 05:13] LABS: ALBUMIN 3.1 g/dL (3.2-5.5); ALBUMIN/GLOBULIN RATIO 1.2 (1.0-2.2); BILIRUBIN,TOTAL 1.7 mg/dL (0.2-1.0); CALCIUM 8.3 mg/dL (8.5-10.3); CREATININE 0.6 mg/dL (0.4-1.0); TOTAL PROTEIN 5.7 g/dL (6.7-8.2)
[2018-08-22] MEDS ORDERED: POTASSIUM CHLORIDE 20 MEQ TABLET PO ONE (06:22)
[2018-08-22] MEDS: HEPARIN 5,000 UNIT/ML VIAL SUBQ SCH ×2 (06:41→06:51)
[2018-08-22] MEDS: SUCRALFATE 1 GM/10 ML UDC PO SCH ×2 (06:42→11:07)
[2018-08-22] MEDS: PANTOPRAZOLE 40 MG VIAL IVP SCH (06:42)
--- NOTE | 2018-08-22 08:23 | Discharge Plan ---
Discharge Plan Disposition: Home, Self Care Condition: Good Prescriptions: Tramadol HCl/Acetaminophen [Ultracet Tablet] 1 each PO Q4HR #40 tablet Dicyclomine [Bentyl] 10 mg PO QID 10 Days #40 capsule Multivitamin with Iron [Multivitamins with Iron] 1 each PO DAILY #30 tablet Pantoprazole [Protonix] 40 mg PO QDAC #10 tablet Sucralfate [Carafate] 1 gm PO AC #300 ml Diet: Regular Activity Restrictions: No Restrictions Shower Restrictions: No Driving Restrictions: No Instruction Topics: Sucralfate tablets, Sucralfate oral suspension, Dicyclomine tablets or capsules, Multivitamin with Minerals and Iron formulations oral solid dosage forms, NAFLD, Cyst Ovarian Tx, ED Gastroenteritis Viral Ch Additional Instructions or Follow Up instructions: You were admitted for a suspected viral gastroenteritis. Initially you were found to be dehydrated, abdominal pain was attributable to possible gallbladder disease however this was negative on your CAT scan and ultrasound. We did find a right ovarian cyst measuring 4.5 cm which was nonruptured and not causing any type of pelvic pain or adding to your abdominal pain. You do not have any berkley ors or masses that were seen on imaging studies. In addition we did not see any infection in your blood or in your stools. Your anemia was attributable to receiving IV fluids. Throughout your hospitalization you received supportive care and medical management for your low potassium as well as for symptoms attributable to your gastroenteritis. We will continue on Carafate that coats the inner lining of your stomach along with Protonix which will reduce the acid and further damage in your stomach. You are instructed to resume your home medications. In addition you will receive multivitamins to be taken daily. You will follow-up with your primary care provider in about 1 or 2 weeks for the reevaluation of your abdominal pain. In addition surgery has indicated that you do not need surgery and will be happy to see you as an outpatient if needed. You are instructed to keep well hydration as well as electrolyte repletion in oral solution with either Gatorade or equivalent beverages that maintain hydration and replete your electrolytes if you are having reoccurrence to your diarrhea. No Smoking: If you smoke, Please STOP! Call for help. Follow-up with: María Elena Martino ARNP, [employer] [Primary Care Provider] - 2 Weeks (Return to PCP in 1 to 2 weeks)
--- NOTE | 2018-08-22 08:32 | DISCHARGE SUMMARY ---
"Discharge Summary Admit Date: 08/21/18 Discharge Date: 08/22/18 Discharging Provider: Dr. Vuong Primary Care Provider: María Elena Martino Code Status: Attempt Resuscitation Condition at Discharge: Good Discharge Disposition: 01 Home, Self Care - DIAGNOSES Admission Diagnoses: 1. SIRS (Tachycardia, leukocytosis, hypotension) 2. Acute gastroenteritis, likely viral induced 3. Acute dehydration with associated mild renal insufficiency 4. Electrolyte disturbance secondary to dehydration and GI losses 5. Right upper quadrant pain 6. Right ovarian nonruptured cyst measuring up to 4.5 cm 7. SALAS with associated elevated transaminases 8. History of prior meth use 9. Chronic back pain 10. Hyperglycemia Discharge Diagnoses with Status of Each Condition: 1. SIRS (Tachycardia, leukocytosis, hypotension); Resolved 2. Acute gastroenteritis, likely viral induced ; Stable improved 3. Acute dehydration with associated mild renal insufficiency; Resolved 4. Electrolyte disturbance secondary to dehydration and GI losses ; Stable improved 5. Right upper quadrant pain; Resolved 6. Right ovarian nonruptured cyst measuring up to 4.5 cm ; Stable 7. SALAS with associated elevated transaminases; Stable on chronic 8. History of prior meth use; Nonactive 9. Chronic back pain; Stable on chronic 10. Hyperglycemia; Resolved - HPI History of Present Illness: 62 yo female in her usual state of health until yesterday afternoon when she noted the sudden onset of sharp stabbing upper abdominal pain associated with multiple episodes of nonbloody N/V, which persisted until today prompting evaluation in the ER and admission for observation. She noted one loose nonbloody stool today since onset of sx; prior bowel function has been nl. No hx previous similar sx. No fever, chills, wt loss; no hx food intolerance, hepatitis/jaundice. She does have a hx of methamphetamine abuse but urine drug sceen was neg except for opiates. She takes Vicodin for chronic back pain. She reports a nl colonoscopy within the past 10 yrs. Neg Fh GI tumors. She reports feeling much better since arrival in the ER where she was treated with IVF and analgesics. Her N/V has resolved and her pain has markedly improved. She has been tolerating clear liquid diet well since admission. Evaluation with CT ab d/pelvis showed colonic diverticulosis and a right adnexal cystic mass 4 cm in size, hepatic steatosis; and RUQ US showed fatty liver, ow were both essentially nl. There was no evidence of gallbladder disease, pneumoperitoneum, bowel obstruction, ischemic bowel, or free fluid in the abdominal cavity. No hx of PUD; no regular use of NSAIDs, minimal alcohol intake; no tobacco use; denies current use of recreational drugs. - CONSULTS | PROCEDURES Consultations: Dr. Bryan Pichardo from general surgery service - HOSPITAL COURSE Hospital Course: This is a pleasant patient by the name of Mckenzie Gerber who was admitted for suspected acute viral gastroenteritis for which she experienced upper abdominal pain with progression with a level elevated lactic acid to about 7.6, CT abdomen pelvis showed a SALAS with a right ovarian nonruptured cyst of 4.5 cm with no pelvic fluid or lymphadenopathy. In addition the ultrasound showed again hepatic steatosis with no evidence of cholecystitis or gallbladder disease. Patient had hemodilution related to anemia with elevated white count, lactic acid trending to normal, macrocytosis seen, creatinine initially with acute renal insufficiency with and with a creatinine of 0.6 upon discharge, hypokalemia secondary to GI losses were corrected with oral potassium chloride supplementation, clears initiated with an advancement to a regular diet. Hepatitis panel in the setting of elevated LFTs and hyperbilirubinemia were pending upon discharge as well as blood cultures. Patient had resolution of diarrhea therefore C. difficile norovirus and H. pylori were uncollected. Patient's alcohol level was less than 5.0 with a normal urinalysis. GGT was ordered in the setting of SALAS. This was also pending on discharge. Patient also had folic acid, vitamin B12, and iron studies ordered. Patient will be discharged on Protonix, multivitamins, Bentyl as needed, and Carafate for sy mptomatic supportive medical management of gastritis/gastroenteritis with initial SIRS/lactic acidosis deemed to be related to hypovolemia and dehydration with possible underlying viral component and infection. To return to PCP in 1 to 2 weeks. - ALLERGIES Allergies/Adverse Reactions: Allergies Allergy/AdvReac Type Severity Reaction Status Date / Time ibuprofen AdvReac Unknown Verified 09/18/17 08:44 - MEDICATIONS Home Medications: Ambulatory Orders Medication Instructions Recorded Confirmed Lisinopril 10 mg PO DAILY 12/26/16 08/21/18 Potassium Chloride 10 meq PO DAILY 09/14/17 08/21/18 Baclofen [Lioresal] 10 mg PO TID PRN 08/21/18 08/21/18 Hydrocodone/Acetaminophen [[place] 1 each PO TID PRN 08/21/18 08/21/18 5-325 Tablet] Dicyclomine [Bentyl] 10 mg PO QID 10 Days #40 capsule 08/22/18 Multivitamin with Iron 1 each PO DAILY #30 tablet 08/22/18 [Multivitamins with Iron] Pantoprazole [Protonix] 40 mg PO QDAC #10 tablet 08/22/18 Sucralfate [Carafate] 1 gm PO AC #300 ml 08/22/18 - PHYSICAL EXAM AT DISCHARGE General Appearance: positive: No acute distress, Alert, Anxious Eyes Bilateral: positive: Normal inspection, PERRL, EOMI ENT: positive: ENT inspection nml, Pharynx nml, No signs of dehydration Neck: positive: Nml inspection, Thyroid nml, No JVD Respiratory: positive: Chest non-tender, No respiratory distress, Breath sounds nml Cardiovascular: positive: Regular rate & rhythm, No murmur, No gallop Abdomen: positive: No organomegaly, Nml bowel sounds, No distention, Tenderness (Mildly tender to the left upper quadrant left lower quadrant), Hepatomegaly. negative: Guarding, Rebound Back: positive: Nml inspection Skin: positive: Color nml, No rash Neurologic/Psychiatric: positive: Oriented x3, CN's nml (2-12) - LABS Result Diagrams: 08/22/18 04:42 08/22/18 04:42 - DIAGNOSTIC IMAGING Diagnostic Imaging Results: Final report reviewed - SEPSIS Current Stage of Sepsis: Ruled out Possible source of Sepsis: GI tract/intra-abdominal Sepsis Criteria: WBC count greater than 12,000 or less than 4000, SBP less than 90 mmHg, Metabolic: lactate > 2 mmol/L - QUALITY (Female Hip Fx Only) Was patient sent home on osteoporosis medication?: No - FOLLOW UP Follow Up: Follow-up with PCP in 1 to 2 weeks - TIME SPENT Time Spent in Discharge (Minutes): 35"
[2018-08-22 08:46] LABS: % IRON SATURATION 98 % (20-50); GAMMA GLUTAMYL TRANSPEPTIDASE 108 IU/L (8-38); IRON 224 ug/dL (28-170); TOTAL IRON BINDING CAPACITY 228 ug/dL (250-450); TRANSFERRIN 163 mg/dL (192-382)
[2018-08-22] MEDS ORDERED: POLYETHYLENE GLYCOL 3350 17 GM PACKET PO SCH (09:00)
[2018-08-22 09:02] LABS: FOLATE 8.02 ng/mL (5.90 - >24.8)
--- NOTE | 2018-08-22 09:58 | PROVIDER PROGRESS NOTE ---
Assessment/Plan - Problem List (1) Abdominal pain Qualifiers: Abdominal location: epigastric Qualified Code(s): R10.13 - Epigastric pain Assessment/Plan: Improved; etiology unclear; appears most likely due to acute gastroenteritis, now resolving. Rec: agree with advancing diet as rob and home today if continues to improve. Discussed with Dr. Vuong. (2) Lactic acidosis Assessment/Plan: Resolved; etiology unclear, perhaps due to volume depletion from vomiting. (3) Vomiting Qualifiers: Vomiting type: unspecified Vomiting Intractability: non-intractable Nausea presence: with nausea Qualified Code(s): R11.2 - Nausea with vomiting, unspecified Assessment/Plan: resolved; likely due to gastroenteritis; Rec: advance diet as rob; home today if continues to improve. - Current Meds Current Meds: Current Medications Generic Name Dose Route Start Last Admin Trade Name Freq PRN Reason Stop Dose Admin Heparin Sodium (Porcine) 5,000 unit 08/21/18 22:00 08/22/18 06:51 SUBQ 5,000 unit TID TIMO Administration Morphine Sulfate 2 mg 08/21/18 15:28 08/21/18 20:12 Morphine IVP 2 mg Q2H PRN Administration Pain 8 to 10 Polyethylene Glycol 17 gm 08/22/18 09:00 08/22/18 07:54 Miralax PO Not Given DAILY TIMO Prochlorperazine Edisylate 10 mg 08/21/18 15:28 08/21/18 16:33 Compazine Inj IVP 10 mg Q6HR PRN Administration Nausea / Vomiting Sodium Chloride 10 ml 08/21/18 15:28 08/21/18 20:13 Normal Saline Flush 0.9% IVP 10 ml PRN PRN Administration NEEDED PER PROVIDER ORDERS Sodium Chloride 10 ml 08/21/18 17:00 08/22/18 07:54 Normal Saline Flush 0.9% IVP Not Given 0100,0900,1700 TIMO Sucralfate 1 gm 08/21/18 17:00 08/22/18 06:42 Carafate PO 1 gm AC TIMO Administration - Lab Result Fish Bone Diagrams: 08/22/18 04:42 08/22/18 04:42 - Additional Planning Condition/Complexity: Improved Plan Discussed with:: Patient, Other (Dr. Vuong) Time Spent: 15-30 minutes Subjective - Subjective Patient Reports: Feeling Better (no N/V/D; tolerating clear liquid diet well; epigastric pain persists but markedly improved compared to admission, ambulating well, voiding well.) Objective Vital Signs: Vital Signs - 24 hr 08/21/18 08/21/18 08/21/18 12:07 12:30 12:42 Temperature 36.2 C L Heart Rate 136 H 135 H 110 H Heart Rate [ Brachial] Respiratory 24 18 Rate Blood Pressure 79/56 L 129/87 H 129/87 H Blood Pressure [Right Brachial artery] O2 Saturation 100 98 08/21/18 08/21/18 08/21/18 13:12 13:30 14:00 Temperature Heart Rate 102 H 106 H 106 H Heart Rate [ Brachial] Respiratory 16 14 14 Rate Blood Pressure 128/87 H 128/88 H 126/87 H Blood Pressure [Right Brachial artery] O2 Saturation 94 93 92 08/21/18 08/21/18 08/21/18 14:30 15:00 15:30 Temperature Heart Rate 106 H 110 H 96 Heart Rate [ Brachial] Respiratory 12 12 12 Rate Blood Pressure 120/89 H 130/92 H 126/85 H Blood Pressure [Right Brachial artery] O2 Saturation 92 97 92 08/21/18 08/21/18 08/22/18 16:14 20:14 00:21 Temperature 36.6 C 37.1 C 36.6 C Heart Rate Heart Rate [ 97 94 82 Brachial] Respiratory 18 17 16 Rate Blood Pressure Blood Pressure 138/83 H 114/70 122/66 [Right Brachial artery] O2 Saturation 96 97 96 08/22/18 08/22/18 03:56 08:06 Temperature 36.6 C 37.3 C Heart Rate Heart Rate [ 83 76 Brachial] Respiratory 18 18 Rate Blood Pressure Blood Pressure 129/76 122/87 H [Right Brachial artery] O2 Saturation 95 Oxygen O2 Source Room air I&O (Last 24 Hrs): Intake and Output Totals x24h 08/20/18 08/21/18 08/22/18 23:59 23:59 23:59 Intake Total 5318.374 2130 Output Total 100 250 Balance 5218.374 1880 General: Alert, Oriented x3, Cooperative, No acute distress HEENT: Mucous membr. moist/pink Neck: No JVD Neuro: Alert Abdomen: Normal bowel sounds, Soft, No tenderness, No hepatospenomegaly, No masses Extremities: No edema, No tenderness/swelling - Results Results: Laboratory Results WBC 7.6 x10^3/uL (4.8-10.8) 08/22/18 04:42 RBC 3.66 10^6/uL (4.20-5.40) L 08/22/18 04:42 Hgb 11.9 g/dL (12.0-16.0) L 08/22/18 04:42 Hct 34.8 % (37.0-47.0) L 08/22/18 04:42 MCV 95.1 fL (81.0-99.0) 08/22/18 04:42 MCH 32.4 pg (27.0-31.0) H 08/22/18 04:42 MCHC 34.1 g/dL (32.0-36.0) 08/22/18 04:42 RDW 14.0 % (12.0-15.0) 08/22/18 04:42 Plt Count 303 10^3/uL (130-450) 08/22/18 04:42 MPV 7.5 fL (7.9-10.8) L 08/22/18 04:42 Neut # (Auto) 3.5 10^3/uL (1.5-6.6) 08/22/18 04:42 Lymph # (Auto) 3.2 10^3/uL (1.5-3.5) 08/22/18 04:42 [place] # (Auto) 0.8 10^3/uL (0.0-1.0) 08/22/18 04:42 Eos # (Auto) 0.1 10^3/uL (0.0-0.7) 08/22/18 04:42 Baso # (Auto) 0.1 10^3/uL (0.0-0.1) 08/22/18 04:42 Absolute Nucleated RBC 0.01 x10^3/uL 08/22/18 04:42 Nucleated RBC % 0.1 /100WBC 08/22/18 04:42 Sodium 136 mmol/L (135-145) 08/22/18 04:42 Potassium 3.3 mmol/L (3.5-5.0) L 08/22/18 04:42 Chloride 96 mmol/L (101-111) L 08/22/18 04:42 Carbon Dioxide 28 mmol/L (21-32) 08/22/18 04:42 Anion Gap 12.0 (6-13) 08/22/18 04:42 BUN 5 mg/dL (6-20) L 08/22/18 04:42 Creatinine 0.6 mg/dL (0.4-1.0) 08/22/18 04:42 Estimated GFR (MDRD) 102 (>89) 08/22/18 04:42 Glucose 97 mg/dL (70-100) 08/22/18 04:42 Lactic Acid 1.4 mmol/L (0.5-2.2) 08/22/18 07:24 Calcium 8.3 mg/dL (8.5-10.3) L 08/22/18 04:42 Magnesium 2.1 mg/dL (1.7-2.8) 08/21/18 12:23 Iron 224 ug/dL (28-170) H 08/22/18 05:00 TIBC 228 ug/dL (250-450) L 08/22/18 05:00 % Saturation 98 % (20-50) H 08/22/18 05:00 Transferrin 163 mg/dL (192-382) L 08/22/18 05:00 Total Bilirubin 1.7 mg/dL (0.2-1.0) H 08/22/18 04:42 GGT 108 IU/L (8-38) H 08/22/18 05:00 AST 42 IU/L (10-42) 08/22/18 04:42 ALT 33 IU/L (10-60) 08/22/18 04:42 Alkaline Phosphatase 53 IU/L (42-121) 08/22/18 04:42 Troponin I < 0.04 ng/mL (<0.49) 08/21/18 12:23 Total Protein 5.7 g/dL (6.7-8.2) L 08/22/18 04:42 Albumin 3.1 g/dL (3.2-5.5) L 08/22/18 04:42 Globulin 2.6 g/dL (2.1-4.2) 08/22/18 04:42 Albumin/Globulin Ratio 1.2 (1.0-2.2) 08/22/18 04:42 Lipase 33 U/L (22-51) 08/21/18 12:23 Vitamin B12 216 pg/mL (180-914) 08/22/18 05:00 Folate 8.02 ng/mL (5.90 - >24.8) 08/22/18 05:00 TSH 4.68 uIU/mL (0.34-5.60) 08/21/18 12:23 Urine Color YELLOW 08/21/18 13:55 Urine Clarity CLEAR (CLEAR) 08/21/18 13:55 Urine pH 6.0 PH (5.0-7.5) 08/21/18 13:55 Ur Specific [place] 1.020 (1.002-1.030) 08/21/18 13:55 Urine Protein 30 mg/dL (NEGATIVE) H 08/21/18 13:55 Urine Glucose (UA) NEGATIVE mg/dL (NEGATIVE) 08/21/18 13:55 Urine Ketones NEGATIVE mg/dL (NEGATIVE) 08/21/18 13:55 Urine Occult Blood SMALL (NEGATIVE) H 08/21/18 13:55 Urine Nitrite NEGATIVE (NEGATIVE) 08/21/18 13:55 Urine Bilirubin NEGATIVE (NEGATIVE) 08/21/18 13:55 Urine Urobilinogen 0.2 (NORMAL) E.U./dL (NORMAL) 08/21/18 13:55 Ur Leukocyte Esterase NEGATIVE (NEGATIVE) 08/21/18 13:55 Urine RBC 0-5 /HPF (0-5) 08/21/18 13:55 Urine WBC 0-3 /HPF (0-5) 08/21/18 13:55 Ur Squamous Epith Cells MOD Squamous (<= Few) H 08/21/18 13:55 Urine Bacteria Few /HPF (None Seen) 08/21/18 13:55 Urine Casts 3-5 Hyaline Casts /LPF 08/21/18 13:55 Urine Mucus Marked Strands 08/21/18 13:55 Ur Microscopic Review INDICATED 08/21/18 13:55 Urine Culture Comments NOT INDICATED 08/21/18 13:55 Urine Opiates Screen POSITIVE (NEGATIVE) H 08/21/18 13:55 Ur Oxycodone Screen NEGATIVE (NEGATIVE) 08/21/18 13:55 Urine Methadone Screen NEGATIVE (NEGATIVE) 08/21/18 13:55 Ur Propoxyphene Screen NEGATIVE (NEGATIVE) 08/21/18 13:55 Ur Barbiturates Screen NEGATIVE (NEGATIVE) 08/21/18 13:55 Ur Tricyclics Screen NEGATIVE (NEGATIVE) 08/21/18 13:55 Ur Phencyclidine Scrn NEGATIVE (NEGATIVE) 08/21/18 13:55 Ur Amphetamine Screen NEGATIVE (NEGATIVE) 08/21/18 13:55 U Methamphetamines Scrn NEGATIVE (NEGATIVE) 08/21/18 13:55 U Benzodiazepines Scrn NEGATIVE (NEGATIVE) 08/21/18 13:55 Urine Cocaine Screen NEGATIVE (NEGATIVE) 08/21/18 13:55 U Cannabinoids Screen NEGATIVE (NEGATIVE) 08/21/18 13:55 Ethyl Alcohol < 5.0 mg/dL 08/21/18 12:23 - Procedures Procedures: Procedures EXCISION OF CERVIX, VIA NATURAL OR ARTIFICIAL OPENING, DIAGN (02/23/18) Sepsis Event Note (H) - Evaluation Current Stage of Sepsis: Ruled out Possible source of Sepsis: positive: GI tract/intra-abdominal - Sepsis Criteria Sepsis Criteria: WBC count greater than 12,000 or less than 4000, SBP less than 90 mmHg, Metabolic: lactate > 2 mmol/L ABX Reporting Has patient been on IV antibiotics over the past 48 hours?: No
[2018-08-22] MEDS: MORPHINE 2 MG/ML SYRINGE IVP PRN ×2 (10:44→13:59)
[2018-08-22] MEDS: SODIUM CHLORIDE FLUSH 0.9% 10 ML SYRINGE IVP PRN ×2 (10:45→13:59)
[2018-08-22] MEDS: DICYCLOMINE 10 MG CAPSULE PO SCH ×2 (11:07→13:15)
[2018-08-22 13:14] VITALS: BP 125/86
[2018-08-23] MEDS ORDERED: PANTOPRAZOLE 40 MG TABLET PO SCH (07:00)
[2018-08-23 12:42] LABS: HEPATITIS A IGM NON-REACTIVE (NON-REACTIVE); HEPATITIS B CORE ANTIBODY IGM NON-REACTIVE (NON-REACTIVE); HEPATITIS B SURFACE ANTIGEN NON-REACTIVE (NON-REACTIVE); HEPATITIS C ANTIBODY NON-REACTIVE (NON-REACTIVE)
== END 2018-08-22 14:00 | disposition home or self-care (01) ==
LOC: ED 11:56 → MS3 15:28
PROVIDERS: ADMIT Family Medicine; ATTEND Family Medicine
DX: K52.9 Noninfective gastroenteritis and colitis, unspecified (principal); R65.10 Systemic inflammatory response syndrome (SIRS) of non-infectious origin without acute organ dysfunction; E86.0 Dehydration; E87.8 Other disorders of electrolyte and fluid balance, not elsewhere classified; N28.9 Disorder of kidney and ureter, unspecified; N83.201 Unspecified ovarian cyst, right side; K75.81 Nonalcoholic steatohepatitis (NASH); Z72.89 Other problems related to lifestyle; E87.2 Acidosis; D64.9 Anemia, unspecified; M54.9 Dorsalgia, unspecified; G89.29 Other chronic pain; R73.9 Hyperglycemia, unspecified; K57.30 Diverticulosis of large intestine without perforation or abscess without bleeding; N94.89 Other specified conditions associated with female genital organs and menstrual cycle; E87.6 Hypokalemia; I10 Essential (primary) hypertension; F41.9 Anxiety disorder, unspecified
CPT/HCPCS: 36415; 74177; 76705; 80053; 80074; 80306; 80320; 81001; 82607; 82746; 82977; 83540; 83605; 83690; 83735; 84443; 84466; 84484; 85025; 87040; 93005; 96361; 96372; 96374; 96375; 96376; 99284; 99285; A9270; G0378; J1170; J2270; J7120; Q9967; 81003; 87045; 87046; 87086; 87338; 87493; 87798

== ENCOUNTER 2018-08-25 14:52 | Outpatient (CLI) | payer MEDICAID ==
[2018-08-25 15:21] LABS: ALBUMIN 4.4 g/dL (3.2-5.5); ALBUMIN/GLOBULIN RATIO 1.4 (1.0-2.2); BASOPHILS # (AUTO) 0.1 10^3/uL (0.0-0.1); BASOPHILS % (AUTO) 1.1 %; BILIRUBIN,TOTAL 1.2 mg/dL (0.2-1.0); CALCIUM 9.1 mg/dL (8.5-10.3); CREATININE 0.7 mg/dL (0.4-1.0); EOSINOPHILS # (AUTO) 0.1 10^3/uL (0.0-0.7); EOSINOPHILS % (AUTO) 1.5 %; HGB - HEMOGLOBIN 12.6 g/dL (12.0-16.0); LYMPHOCYTES # (AUTO) 2.4 10^3/uL (1.5-3.5); LYMPHOCYTES % (AUTO) 23.8 %; MEAN CORPUSCULAR HEMOGLOBIN 31.6 pg (27.0-31.0); MEAN CORPUSCULAR HGB CONC 33.5 g/dL (32.0-36.0); MEAN CORPUSCULAR VOLUME 94.3 fL (81.0-99.0); MEAN PLATELET VOLUME 7.7 fL (7.9-10.8); MONOCYTES # (AUTO) 0.8 10^3/uL (0.0-1.0); MONOCYTES % (AUTO) 7.8 %; NEUTROPHILS # (AUTO) 6.6 10^3/uL (1.5-6.6); NEUTROPHILS % (AUTO) 65.8 %; PLT - PLATELET COUNT 290 10^3/uL (130-450); RED BLOOD COUNT 3.98 10^6/uL (4.20-5.40); RED CELL DISTRIBUTION WIDTH 14.2 % (12.0-15.0); TOTAL PROTEIN 7.6 g/dL (6.7-8.2)
== END 2018-08-25 14:53 | disposition home or self-care (01) ==
LOC: LAB 14:52
PROVIDERS: ATTEND Nurse Practitioner
DX: R10.9 Unspecified abdominal pain (principal)
CPT/HCPCS: 36415; 80053; 85025

== ENCOUNTER 2018-08-30 08:00 | Outpatient (CLI) | payer MEDICAID ==
[2018-08-30 10:59] LABS: BASOPHILS # (AUTO) 0.1 10^3/uL (0.0-0.1); EOSINOPHILS # (AUTO) 0.1 10^3/uL (0.0-0.7); EOSINOPHILS % (AUTO) 1.3 %; HGB - HEMOGLOBIN 14.1 g/dL (12.0-16.0); LYMPHOCYTES # (AUTO) 1.9 10^3/uL (1.5-3.5); LYMPHOCYTES % (AUTO) 25.2 %; MEAN CORPUSCULAR HEMOGLOBIN 32.4 pg (27.0-31.0); MEAN CORPUSCULAR VOLUME 95.2 fL (81.0-99.0); MEAN PLATELET VOLUME 7.3 fL (7.9-10.8); MONOCYTES # (AUTO) 1.3 10^3/uL (0.0-1.0); NEUTROPHILS % (AUTO) 54.5 %; PLT - PLATELET COUNT 374 10^3/uL (130-450); RED BLOOD COUNT 4.34 10^6/uL (4.20-5.40); WHITE BLOOD COUNT 7.4 x10^3/uL (4.8-10.8)
[2018-08-30 11:21] LABS: ALBUMIN 4.3 g/dL (3.2-5.5); ALBUMIN/GLOBULIN RATIO 1.4 (1.0-2.2); BILIRUBIN,TOTAL 1.2 mg/dL (0.2-1.0); CALCIUM 9.4 mg/dL (8.5-10.3); CREATININE 0.9 mg/dL (0.4-1.0); TOTAL PROTEIN 7.3 g/dL (6.7-8.2)
== END 2018-08-30 23:59 | disposition home or self-care (01) ==
LOC: LAB 08:00
PROVIDERS: ATTEND Nurse Practitioner
DX: R10.9 Unspecified abdominal pain (principal); E78.6 Lipoprotein deficiency; R94.5 Abnormal results of liver function studies
CPT/HCPCS: 36415; 80053; 85025

== ENCOUNTER 2018-12-05 15:42 | Outpatient (CLI) | payer MEDICAID ==
[2018-12-06 11:44] LABS: HEPATITIS C ANTIBODY NON-REACTIVE (NON-REACTIVE)
[2018-12-06 14:42] LABS: HIV AG/AB 4TH GEN NON-REACTIVE (NON-REACTIVE)
[2018-12-07 12:16] LABS: HSV 1 IGG TYPE SPECIFIC AB <0.90 index; HSV 2 IGG TYPE SPECIFIC AB 7.95 index
== END 2018-12-05 15:43 | disposition home or self-care (01) ==
LOC: LAB 15:42
PROVIDERS: ATTEND Nurse Practitioner
DX: Z11.3 Encounter for screening for infections with a predominantly sexual mode of transmission (principal)
CPT/HCPCS: 36415; 81599; 86695; 86696; 86803; 87389

== ENCOUNTER 2018-12-19 22:21 | Outpatient (CLI) | payer MEDICAID | END 2018-12-19 22:22 | disposition critical access hospital (66) | LOC: EMS 22:21 | PROVIDERS: ATTEND Surgery | DX: R55 Syncope and collapse (principal); R41.82 Altered mental status, unspecified | CPT/HCPCS: A0425; A0427; A0999 ==

== ENCOUNTER 2018-12-19 22:32 | Emergency (ER) | payer MEDICAID ==
--- NOTE | 2018-12-19 22:46 | ED Physician Documentation ---
PD HPI ALTERED MENTAL STATUS - Stated complaint Stated Complaint: ALOC/ETOH - History obtained from History obtained from: Patient, EMS - History of Present Illness Timing - onset: Today (tonight) Quality / character: Confused, Disoriented Associated symptoms: General weakness Contributing factors: Intoxicated Basline status: Alert and oriented X 3, Ambulatory, Independent Recently seen: Not recently seen - Additional information Additional information: BIBA. called 911 due to patient exhibiting AMS, generalized weakness. Per EMS, had just driven back from store with patient in passenger seat. told medics that he was aware patient has been drinking alcohol but does not know quantity nor timeframe. Upon arriving home, patient was too weak (generalized) to stand; she tried to stand and ambulate, resulting in her falling several times to ground. She ultimately was unable to be helped back up and thus called 911. Medics say initial BP was 93/49 and thus given 400cc NS bolus en route. She is AAOx1 on EMS exam as well as on arrival, and thus cannot contribute much to HPI/ROS. reportedly told medics that patient has been upset regarding recent diagnosis of cervical cancer Review of Systems Unable to obtain: AMS, Intoxicated PD PAST MEDICAL HISTORY - Past Medical History Past Medical History: Yes Cardiovascular: Hypertension - Present Medications Home Medications: Ambulatory Orders Medication Instructions Recorded Confirmed Lisinopril 10 mg PO DAILY 12/26/16 12/19/18 Potassium Chloride 20 meq PO DAILY 09/14/17 12/19/18 Hydrocodone/Acetaminophen [[place] 1 each PO TID PRN 08/21/18 12/19/18 5-325 Tablet] Dicyclomine [Bentyl] 10 mg PO QID 10 Days #40 capsule 08/22/18 12/19/18 Tramadol HCl/Acetaminophen 1 each PO Q4HR #40 tablet 08/22/18 12/19/18 [Ultracet Tablet] Albuterol Sulfate [Proventil Hfa 1 puffs PO DAILY 12/19/18 12/19/18 Inhaler] Aspirin/Acetaminophen/Caffeine 1 tab PO PRN PRN 12/19/18 12/19/18 [Excedrin Migraine Caplet] Milk Thistle Seed Extract [Milk 175 mg PO DAILY 12/19/18 12/19/18 Thistle] - Allergies Allergies/Adverse Reactions: Allergies Allergy/AdvReac Type Severity Reaction Status Date / Time ibuprofen AdvReac Unknown Verified 12/19/18 22:43 - Living Situation Living Situation: reports: With spouse/s.o. Living Arrangement: reports: At home PD ED PE NORMAL - Vitals Vital signs reviewed: Yes - General General: Well developed/nourished, Other (tearful, waxing and waning anxiety. awake, alert; does not answer orientation questions directly (asked name, she says "I know my name", but does not provide it. Asked location, she tells me "everyone keeps asking me that". Asked year, she tells me not to touch her).) - HEENT HEENT: Atraumatic, PERRL, EOMI - Neck Neck: No bony TTP - Cardiac Cardiac: RRR, No murmur - Respiratory Respiratory: No respiratory distress, Clear bilaterally - Abdomen Abdomen: Soft, Non tender - Derm Derm: Normal color, Warm and dry - Extremities Extremities: No deformity, No tenderness to palpate, Normal ROM s pain, No edema - Neuro Eye Opening: Spontaneous Motor: Obeys Commands Verbal: Confused GCS Score: 14 PD ED PE EXPANDED - Psych Psych: Tearful, Anxious Results - Vitals Vitals: Vital Signs - 24 hr 12/19/18 12/20/18 12/20/18 22:32 00:10 01:22 Temperature 36.5 C Heart Rate 102 H 98 95 Respiratory 24 19 12 Rate Blood Pressure 120/91 H 108/86 H 94/71 O2 Saturation 98 100 95 12/20/18 12/20/18 12/20/18 02:36 02:38 03:42 Temperature Heart Rate 97 92 Respiratory 13 13 Rate Blood Pressure 102/81 H 102/81 H 91/72 O2 Saturation 95 100 12/20/18 12/20/18 12/20/18 04:28 06:00 06:26 Temperature Heart Rate 97 96 Respiratory 14 13 Rate Blood Pressure 115/84 H 102/73 O2 Saturation 100 102 H 100 Oxygen O2 Source Room air - Labs Labs: Laboratory Tests 12/19/18 12/19/18 12/19/18 22:56 22:56 23:10 WBC 10.9 H RBC 4.30 Hgb 14.0 Hct 39.1 MCV 90.9 MCH 32.6 H MCHC 35.8 RDW 15.3 H Plt Count 294 MPV 8.7 Neut # (Auto) 4.9 Lymph # (Auto) 4.9 H [place] # (Auto) 0.6 Eos # (Auto) 0.2 Baso # (Auto) 0.1 Absolute Nucleated RBC 0.00 Nucleated RBC % 0.0 Sodium 143 Potassium 3.4 L Chloride 107 Carbon Dioxide 24 Anion Gap 12.0 BUN 13 Creatinine 0.6 Estimated GFR (MDRD) 101 Glucose 100 Calcium 8.2 L Total Bilirubin 0.6 AST 47 H ALT 36 Alkaline Phosphatase 58 Total Protein 7.2 Albumin 3.7 Globulin 3.5 Albumin/Globulin Ratio 1.1 Lipase 31 Urine Color YELLOW Urine Clarity CLEAR Urine pH 5.5 Ur Specific [place] 1.010 Urine Protein NEGATIVE Urine Glucose (UA) NEGATIVE Urine Ketones NEGATIVE Urine Occult Blood TRACE-LYSE Urine Nitrite NEGATIVE Urine Bilirubin NEGATIVE Urine Urobilinogen 0.2 (NORMAL) Ur Leukocyte Esterase NEGATIVE Ur Microscopic Review NOT INDICATED Urine Culture Comments NOT INDICATED Salicylates < 6.0 Urine Opiates Screen NEGATIVE Ur Oxycodone Screen NEGATIVE Urine Methadone Screen NEGATIVE Ur Propoxyphene Screen NEGATIVE Acetaminophen < 10 L Ur Barbiturates Screen NEGATIVE Ur Tricyclics Screen NEGATIVE Ur Phencyclidine Scrn NEGATIVE Ur Amphetamine Screen NEGATIVE U Methamphetamines Scrn NEGATIVE U Benzodiazepines Scrn NEGATIVE Urine Cocaine Screen NEGATIVE U Cannabinoids Screen NEGATIVE Ethyl Alcohol 420.1 - Rads (name of study) CT head Radiology: Prelim report reviewed, See rad report PD MEDICAL DECISION MAKING - ED course Complexity details: reviewed old records, reviewed results, re-evaluated patient, considered differential, d/w patient, d/w family ED course: Markedly high serum alcohol level (420) without findings on HPI or testing to suggest other cause of her AMS. Over the course of several hours in the ED, she gradually became increasingly awake, alert, and oriented and was then able to be discharged home to family. She was discharged in NAD, AAOx3, able to ambulate without assistance , and denies SI. Departure - Departure Disposition: 01 Home, Self Care Clinical Impression: Alcohol intoxication delirium Condition: Good Instructions: ED Alcohol Intoxication Follow-Up: María Elena Martino ARNP, [facility] PHYSICIAN[facility] [Primary Care Provider] - Discharge Date/Time: 12/20/18 06:26
[2018-12-19 22:59] LABS: BASOPHILS # (AUTO) 0.1 10^3/uL (0.0-0.1); BASOPHILS % (AUTO) 1.1 %; EOSINOPHILS # (AUTO) 0.2 10^3/uL (0.0-0.7); EOSINOPHILS % (AUTO) 2.1 %; LYMPHOCYTES # (AUTO) 4.9 10^3/uL (1.5-3.5); LYMPHOCYTES % (AUTO) 45.4 %; MEAN CORPUSCULAR HEMOGLOBIN 32.6 pg (27.0-31.0); MEAN CORPUSCULAR HGB CONC 35.8 g/dL (32.0-36.0); MEAN CORPUSCULAR VOLUME 90.9 fL (81.0-99.0); MEAN PLATELET VOLUME 8.7 fL (7.9-10.8); MONOCYTES # (AUTO) 0.6 10^3/uL (0.0-1.0); MONOCYTES % (AUTO) 5.7 %; NEUTROPHILS # (AUTO) 4.9 10^3/uL (1.5-6.6); NEUTROPHILS % (AUTO) 45.1 %; PLT - PLATELET COUNT 294 10^3/uL (130-450); RED CELL DISTRIBUTION WIDTH 15.3 % (12.0-15.0); WHITE BLOOD COUNT 10.9 x10^3/uL (4.8-10.8)
[2018-12-19 23:14] LABS: ACETAMINOPHEN < 10 ug/mL (10-30); ALBUMIN 3.7 g/dL (3.2-5.5); ALBUMIN/GLOBULIN RATIO 1.1 (1.0-2.2); ALKALINE PHOSPHATASE 58 IU/L (42-121); ALT ALANINE AMINOTRANSFERASE 36 IU/L (10-60); AST ASPARTATE AMINOTRANSFERASE 47 IU/L (10-42); BILIRUBIN,TOTAL 0.6 mg/dL (0.2-1.0); BUN - BLOOD UREA NITROGEN 13 mg/dL (6-20); CALCIUM 8.2 mg/dL (8.5-10.3); CARBON DIOXIDE - CO2 24 mmol/L (21-32); CHLORIDE 107 mmol/L (101-111); CREATININE 0.6 mg/dL (0.4-1.0); GFR - MDRD 101 (>89); GLUCOSE 100 mg/dL (70-100); LIPASE 31 U/L (22-51); SALICYLATE < 6.0 mg/dL; SODIUM 143 mmol/L (135-145); TOTAL PROTEIN 7.2 g/dL (6.7-8.2)
[2018-12-19 23:23] LABS: MUDS CUTOFF CONCENTRATIONS CUTOFF CONC BELOW:
[2018-12-19 23:30] LABS: BILIRUBIN,URINE NEGATIVE (NEGATIVE); GLUCOSE, URINE (UA) NEGATIVE (NEGATIVE); KETONES,URINE (UA) NEGATIVE (NEGATIVE); LEUKOCYTE ESTERASE, URINE NEGATIVE (NEGATIVE); NITRITE,URINE NEGATIVE (NEGATIVE); OCCULT BLOOD,URINE TRACE-LYSE (NEGATIVE); PH,URINE 5.5 PH (5.0-7.5); PROTEIN,URINE NEGATIVE (NEGATIVE); UROBILINOGEN,URINE 0.2 (NORMAL) E.U./dL (NORMAL)
[2018-12-19 23:31] LABS: CLARITY,URINE CLEAR (CLEAR)
[2018-12-19 23:38] LABS: AMPHETAMINE SCREEN,URINE NEGATIVE (NEGATIVE); BENZODIAZEPINES SCREEN, URINE NEGATIVE (NEGATIVE); COCAINE SCREEN URINE NEGATIVE (NEGATIVE); METHADONE SCREEN, URINE NEGATIVE (NEGATIVE); METHAMPHETAMINES SCREEN, URINE NEGATIVE (NEGATIVE); OPIATE SCREEN, URINE NEGATIVE (NEGATIVE); OXYCODONE SCREEN, URINE NEGATIVE (NEGATIVE); PROPOXYPHENE SCREEN, URINE NEGATIVE (NEGATIVE); TRICYCLIC ANTIDEPRESSANT,URINE NEGATIVE (NEGATIVE)
--- NOTE | 2018-12-20 00:08 | CT Report ---
Reason: AMS Procedure Date: 12/19/2018 Accession Number: [id number] / [id number] Procedure: CT - HEAD WO CPT Code: FULL RESULT: EXAM: CT HEAD EXAM DATE: 12/19/2018 11:55 PM. CLINICAL HISTORY: Decreased mental status. Intoxication. COMPARISON: HEAD W/O 09/14/2017 8:45 AM. TECHNIQUE: Multiaxial CT images were obtained from the foramen magnum to the vertex. Reformats: Sagittal and coronal. IV contrast: None. In accordance with CT protocol optimization, one or more of the following dose reduction techniques were utilized for this exam: automated exposure control, adjustment of mA and/or KV based on patient size, or use of iterative reconstructive technique. FINDINGS: Parenchyma: No intraparenchymal hemorrhage. No evidence of mass, midline shift, or CT findings of infarction. Goldman-white differentiation is distinct. Extraaxial Spaces: Normal for age. No subdural or epidural collections identified. Ventricles: Normal in size and position. Sinuses and Orbits: Mild mucosal thickening in the maxillary sinuses bilaterally. Bones: No evidence of fracture or calvarial defect. Other: None. IMPRESSION: 1. No acute intracranial abnormality. RADIA
[2018-12-20] MEDS ORDERED: LORazepam 2 MG/ML VIAL IVP STA (01:02)
[2018-12-20] MEDS ORDERED: SODIUM CHLORIDE 0.9% 1,000 ML IV STA (01:06)
[2018-12-20 06:06] VITALS: BP 102/73
== END 2018-12-20 06:26 | disposition home or self-care (01) ==
LOC: EDUNIT# → ED 22:32
DX: F10.121 Alcohol abuse with intoxication delirium (principal); Y90.8 Blood alcohol level of 240 mg/100 ml or more; I10 Essential (primary) hypertension
CPT/HCPCS: 36415; 70450; 80053; 80306; 80307; 80320; 80329; 81003; 83690; 85025; 96361; 96374; 99281; 99284; J2060; 81001; 87086

== ENCOUNTER 2019-05-23 09:53 | Outpatient (CLI) | payer MEDICAID ==
[2019-05-23 10:16] LABS: BASOPHILS # (AUTO) 0.1 10^3/uL (0.0-0.1); BASOPHILS % (AUTO) 1.1 %; EOSINOPHILS # (AUTO) 0.8 10^3/uL (0.0-0.7); EOSINOPHILS % (AUTO) 9.9 %; HGB - HEMOGLOBIN 14.5 g/dL (12.0-16.0); LYMPHOCYTES # (AUTO) 2.3 10^3/uL (1.5-3.5); LYMPHOCYTES % (AUTO) 27.9 %; MEAN CORPUSCULAR HEMOGLOBIN 33.6 pg (27.0-31.0); MEAN CORPUSCULAR HGB CONC 34.9 g/dL (32.0-36.0); MEAN CORPUSCULAR VOLUME 96.1 fL (81.0-99.0); MEAN PLATELET VOLUME 8.8 fL (7.9-10.8); MONOCYTES # (AUTO) 0.7 10^3/uL (0.0-1.0); NEUTROPHILS # (AUTO) 4.3 10^3/uL (1.5-6.6); NEUTROPHILS % (AUTO) 51.9 %; PLT - PLATELET COUNT 255 10^3/uL (130-450); RED BLOOD COUNT 4.32 10^6/uL (4.20-5.40); RED CELL DISTRIBUTION WIDTH 13.2 % (12.0-15.0); WHITE BLOOD COUNT 8.3 x10^3/uL (4.8-10.8)
== END 2019-05-23 09:54 | disposition home or self-care (01) ==
LOC: LAB 09:53
PROVIDERS: ATTEND Obstetrics & Gynecology
DX: Z01.812 Encounter for preprocedural laboratory examination (principal); N87.1 Moderate cervical dysplasia
CPT/HCPCS: 36415; 85025

== ENCOUNTER 2019-05-24 12:11 | Day surgery (SDC) | payer MEDICAID ==
--- NOTE | 2019-05-23 19:18 | HISTORY & PHYSICAL EXAMINATION ---
HPI - History of Present Illness HPI Comment/Other: CC: PreOp Consult HPI: Pt is here today for a preop consult for a cold knife cone biopsy ...................................................................FRANK Castorena May 23, 2019 9:04 AM Patient is a 61-year-old here for preop assessment for cold knife cone procedure She was last seennin clinic on 05/01/19 after underoing She was first seen by this provider on February 24, 2019 at which time she reported the following: Ms Gerber has a history of abnormal pap smears and underwent a CKC on 02/23/18. She states she had her first abnormal pap about 5 years ago. It "cleared itself". Thinks she had a colposcopy then. On 11/01/17, she had a NILM pap but was positive for HPV 16/18. I cannot find a coloposcopy report or biopsy results. She had a CKC in the OR in November 2017 that returned with SONY-1. I cannot find any indication for the CKC other than the NILM pap smear with the HPV 16/18. Patient is unclear with regard to details. She returned for pap on 12/05/18, which returned unsatisfactory but positive for HPV. Repeat pap on 01/02/19 returned with LGSIL/HPV+. She has acquired a new sexual partner in the last 5 years. SA; denies postcoital bleeding. 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 No tobacco use. She was seen for colposcopy on March 24, 2019. Cervical biopsies should SONY-1 at two locations. Her and her cervical curettage returned with SONY-2 and was p16 positive. I recommended undergoing a LEEP procedure and clinic. She feels she is unable to undergo a procedure in clinic and wants to proceed with procedure in OR Will proceed with cold knife cone Desire hysterectomy once CKC pathology received. No changes in health hx since time of prior exam other than as noted. Current Allergies: MOTRIN (Critical) DULOXETINE HCL (DULOXETINE HCL) (Critical) TRAMADOL HCL (TRAMADOL HCL TABS) (Critical) CODEINE (Severe) * DULOXETINE (Severe) Current Meds: METHOCARBAMOL 500 MG ORAL TABLET (METHOCARBAMOL) Take 1-2 tablets by mouth up to 4 times daily for muscle spasms. Replaces baclofen.; Route: ORAL OMEPRAZOLE 20 MG ORAL CAPSULE DELAYED RELEASE (OMEPRAZOLE) Take one capsule by mouth twice daily for acute gastritis; Route: ORAL DICYCLOMINE HCL CAPSULE (DICYCLOMINE HCL CAPS) Take one tablet by mouth 30 minutes before a meal ( on an empty stomach) SUCRALFATE SUSPENSION (SUCRALFATE SUSP) take 2 Teaspoons and let coat stomach and then later may drink water NORCO 5-325 MG ORAL TABLET (HYDROCODONE-ACETAMINOPHEN) Take one tablet by mouth up to 3 times daily as needed for severe pain; Route: ORAL POTASSIUM CHLORIDE ER 10 MEQ CR-TABS (POTASSIUM CHLORIDE) TAKE 1 TABLET BY MOUTH ONCE DAILY WITH FOOD BACLOFEN 10 MG ORAL TABLET (BACLOFEN) Take one tablet by mouth up to 3 times daily for muscle spasms.; Route: ORAL LISINOPRIL 10MG TAB (LISINOPRIL) TAKE 1 TABLET BY MOUTH ONCE DAILY VENTOLIN HFA 108 (90 Base) MCG/ACT INHALATION AEROSOL SOLUTION (ALBUTEROL SULFATE) Inhale two actuations every four hours as needed for wheeze; Route: INHALATION Allergies: MOTRIN (Critical) DULOXETINE HCL (DULOXETINE HCL) (Critical) TRAMADOL HCL (TRAMADOL HCL TABS) (Critical) CODEINE (Severe) * DULOXETINE (Severe) Medications: METHOCARBAMOL 500 MG ORAL TABLET (METHOCARBAMOL) Take 1-2 tablets by mouth up to 4 times daily for muscle spasms. Replaces baclofen.; Route: ORAL OMEPRAZOLE 20 MG ORAL CAPSULE DELAYED RELEASE (OMEPRAZOLE) Take one capsule by mouth twice daily for acute gastritis; Route: ORAL DICYCLOMINE HCL CAPSULE (DICYCLOMINE HCL CAPS) Take one tablet by mouth 30 minutes before a meal ( on an empty stomach) SUCRALFATE SUSPENSION (SUCRALFATE SUSP) take 2 Teaspoons and let coat stomach and then later may drink water NORCO 5-325 MG ORAL TABLET (HYDROCODONE-ACETAMINOPHEN) Take one tablet by mouth up to 3 times daily as needed for severe pain; Route: ORAL POTASSIUM CHLORIDE ER 10 MEQ CR-TABS (POTASSIUM CHLORIDE) TAKE 1 TABLET BY MOUTH ONCE DAILY WITH FOOD BACLOFEN 10 MG ORAL TABLET (BACLOFEN) Take one tablet by mouth up to 3 times daily for muscle spasms.; Route: ORAL LISINOPRIL 10MG TAB (LISINOPRIL) TAKE 1 TABLET BY MOUTH ONCE DAILY VENTOLIN HFA 108 (90 Base) MCG/ACT INHALATION AEROSOL SOLUTION (ALBUTEROL SULFATE) Inhale two actuations every four hours as needed for wheeze; Route: INHALATION Problems: Preop exam (ICD-V72.84) (CAZ28-E33.818) SONY 2, moderate cervical dysplasia (ICD-622.12) (SYE21-P37.1) Abfnd Pap smear LGSIL (ICD-795.09) (WQU90-E88.612) Screening for cervical cancer (ICD-V76.2) (ABU52-G18.4) Screening for std (ICD-V74.5) (RNI61-W33.3) Screening mammogram NEC (ICD-V76.12) (AVK46-Z00.31) Abdominal pain (ICD-789.00) (FAH29-P47.9) Sciatica (ICD-724.3) (CES16-O81.30) Cervical intraepithelial neoplasia grade 1 (ICD-622.11) (RBT24-T68.0) Screening for malignant neoplasm, colon (ICD-V76.51) (OES62-D44.11) Abfnd, Pap smear, cervix/cervical HPV NEC (ICD-079.4) (XEC70-L64.89) Preventive health care (ICD-V70.0) (AGB19-B55.00) Immunization counseling (ICD-V65.49) (GQB97-U91.89) Intertrigo, candidal (ICD-695.89) (NVS69-O65.2) Back pain, lumbar, with radiculopathy (ICD-724.4) (PYA55-R19.16) Dysuria (ICD-788.1) (PBV09-V12.0) Physical examination (ICD-V70.0) (OGR79-F41.00) Osteopenia (ICD-733.90) (ACV39-O76.80) Elevated liver function test (ICD-790.6) (UQJ74-P03.5) Hypokalemia (ICD-276.8) (NPY40-B69.6) Postmenopausal status (ICD-V49.81) (MLK61-H82.0) Allergies, seasonal (ICD-477.0) (DCH36-L98.2) Elevated urine uric acid (ICD-791.9) (GDQ25-E05.99) HTN, benign essential, controlled (ICD-401.1) (WLM10-J33) Degenerative disc disease (ICD-722.6) (CWV41-M56.80) Osteoarthritis (ICD-715.90) (JRU23-G62.90) Sacral foraminal stenosis (ICD-724.6) (SOG76-X79.88) Risk Factors: Smoked Tobacco Use: Never smoker Smokeless Tobacco Use: Never Tobacco Use Comments: childhood exposure to secondhand Passive Smoke Exposure: yes HIV High Risk Behavior: no Caffeine Use: 2 drinks per day Exercise: yes Times/wk: 7 Type of Exercise: Walking Seatbelt Use: 100 % Sun Exposure: frequently Alcohol Use: no Drug Use: no Vital Signs: Patient Profile: 63 Years Old Female Height: 65.25 inches Weight: 154 pounds BMI: 25.52 BP sittin / 80 Cuff size: regular Vitals Entered By: FRANK Castorena (May 23, 2019 9:04 AM) Meds Reviewed: Done Allergies Reviewed: Done Past Medical History: Spinal stenosis - lumbar area- on disability- patient reported. chronic pain Childhood Nephritis H/O + HPV. had colposcopy in [place] with bx. Past Surgical History: biopsies Colposcopy w/ cervical bx &/or endocervical curettage Conization of cervix w/w/o fulguration, w/w/o D&C, CKC or laser 02/23/2018 [employer] MACHINE Review of Systems ROS Comments: As per HPI, otherwise remaining systems are negative. Physical Constitutional: alert, no acute distress, well hydrated. Skin: normal turgor, normal color, no rashes. Head: atraumatic, normocephalic. Cardiovascular: RRR. Respiratory: no respiratory distress, clear to auscultation. Neurologic: normal. Psych: affect and mood appropriate. Vulva: Vulva and Surrounding Areas Findings: normal appearance Vagina Findings: no abnormalities Cervix Squamocolumnar Junction: not well seen Impression & Recommendations: Problem # 1: Preop exam (ICD-V72.84) (IKN89-H95.818) Orders: PRE OP -69091 (CPT-92224) Reviewed risks/benefits/alternatives to cold knife cone procedure Reviewed all surgical procedures carry risks of bleeding, infection, and damage nearby tissue and organs. Discussed the risk of infection with blood transfusion is relatively low. Risk of HIV is 1 in 2 million nationwide, risk of hepatitis is 1/million nationwide. Reviewed for possibility of transfusion reaction and possible management with medications. She is provided consent for blood transfusion. Reviewed infection risk; this procedure does not require antibiotics ppx per ACOG guidelines Reviewed risk of damage to nearby tissue and organ. Written, informed consent obtained Wants to aovid NSAIDS Proceed to OR on 05/24/19 Patient Portal: [id number] Current Allergies: MOTRIN (Critical) DULOXETINE HCL (DULOXETINE HCL) (Critical) TRAMADOL HCL (TRAMADOL HCL TABS) (Critical) CODEINE (Severe) * DULOXETINE (Severe) Current Meds: METHOCARBAMOL 500 MG ORAL TABLET (METHOCARBAMOL) Take 1-2 tablets by mouth up to 4 times daily for muscle spasms. Replaces baclofen.; Route: ORAL OMEPRAZOLE 20 MG ORAL CAPSULE DELAYED RELEASE (OMEPRAZOLE) Take one capsule by mouth twice daily for acute gastritis; Route: ORAL DICYCLOMINE HCL CAPSULE (DICYCLOMINE HCL CAPS) Take one tablet by mouth 30 minutes before a meal ( on an empty stomach) SUCRALFATE SUSPENSION (SUCRALFATE SUSP) take 2 Teaspoons and let coat stomach and then later may drink water NORCO 5-325 MG ORAL TABLET (HYDROCODONE-ACETAMINOPHEN) Take one tablet by mouth up to 3 times daily as needed for severe pain; Route: ORAL POTASSIUM CHLORIDE ER 10 MEQ CR-TABS (POTASSIUM CHLORIDE) TAKE 1 TABLET BY MOUTH ONCE DAILY WITH FOOD BACLOFEN 10 MG ORAL TABLET (BACLOFEN) Take one tablet by mouth up to 3 times daily for muscle spasms.; Route: ORAL LISINOPRIL 10MG TAB (LISINOPRIL) TAKE 1 TABLET BY MOUTH ONCE DAILY VENTOLIN HFA 108 (90 Base) MCG/ACT INHALATION AEROSOL SOLUTION (ALBUTEROL SULFATE) Inhale two actuations every four hours as needed for wheeze; Route: INHALATION PMH/PSH - Past Medical History Cardiovascular: positive: Hypertension Respiratory: positive: Other Neuro: positive: None Endocrine/Autoimmune: positive: None GI: positive: None : positive: None HEENT: positive: None Psych: positive: Anxiety, Post traumatic stress disorder Musculoskeletal: positive: Osteoarthritis, Chronic back pain Derm: positive: None MRSA Hx?: No - 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
[2019-05-24] MEDS ORDERED: LACTATED RINGERS 1,000 ML IV ONE (12:26)
[2019-05-24] MEDS ORDERED: LIDOCAINE 1%-EPI 1:100000 20 ML MDV ONE (14:32)
[2019-05-24] MEDS ORDERED: POTASSIUM IODIDE/IODINE 14 ML SOLUTION ONE (14:50)
--- NOTE | 2019-05-24 14:52 | ANESTHESIA ---
Pre-Anesthesia VS, & Labs - Diagnosis cervical dysplagia - Procedure Cold knife cold biopsy Vital Signs: Temp Pulse Resp BP Pulse Ox 36.2 C L 90 16 131/101 H 98 05/24/19 12:26 05/24/19 12:26 05/24/19 12:26 05/24/19 12:26 05/24/19 12:26 Height 5 ft 7 in Weight (kg) 69.6 kg Body Mass Index 23.3 - NPO >8 hours - Is Patient ?: No Home Medications and Allergies Home Medications: Ambulatory Orders Lisinopril [Prinivil] 10 mg PO DAILY 05/23/19 Lisinopril [Prinivil] 10 mg PO DAILY 05/23/19 Allergies/Adverse Reactions: Allergies Allergy/AdvReac Type Severity Reaction Status Date / Time acetaminophen AdvReac Unknown Verified 05/24/19 12:35 codeine AdvReac Unknown Verified 05/24/19 12:37 ibuprofen AdvReac Unknown Verified 12/19/18 22:43 Anes History & Medical History - Anesthetic History Anesthesia Complications: reports: No previous complications - Medical History Cardiovascular: reports: Hypertension Pulmonary: reports: Other Gastrointestinal: reports: None Urinary: reports: None Neuro: reports: None Musculoskeletal: reports: Osteoarthritis, Chronic back pain Endocrine/Autoimmune: reports: None Blood Disorders: reports: None Skin: reports: None Smoking Status: Never smoker - Surgical History Gynecologic: Other Exam General: Alert Dental: WNL Mouth Opening: Greater than 4 Fingerbreadths Neck Mobility: Normal Mallampati classification: II Thyromental Distance: greater than 6 cm Respiratory: Lungs clear Cardiovascular: Regular rate, Normal S1, Normal S2 Mental/Cognitive Status: Alert/Oriented X3 Plan Anesthesia Type: General Consent for Procedure(s) Verified and Reviewed: Yes Code Status: Attempt Resuscitation ASA classification: 2-Mild systemic disease Is this case an emergency?: No
[2019-05-24] MEDS ORDERED: LIDOCAINE 1%-EPI 1:100000 30 ML MDV SUBQ ONE ×2 (15:34)
[2019-05-24] MEDS ORDERED: POTASSIUM IODIDE/IODINE 14 ML SOLUTION TOP ONE (15:41)
--- NOTE | 2019-05-24 16:16 | OPERATIVE REPORT ---
Operative Report - General Procedure Date: 05/24/19 Planned Procedure: Cold Knife Cone Biopsy Pre-Op Diagnosis: SONY-2, multiple prior cone procedures Procedure Performed: Cold knife cone biopsy Post Op Diagnosis: Same - Procedure Note Primary Surgeon: Cassidy Tanner MD Anesthesia Provider: Subha Gorman CRNA Anesthesia Technique: General LMA Pathology: Cold knife cone biopsy in two parts IV Fluids (mL): 600 Estimated Blood Loss (mL): 0 Urine Output (mL): 0 (Not measured) Indications: Ms Gerber has a history of abnormal pap smears and underwent a CKC on 02/23/18. She states she had her first abnormal pap about 5 years ago. It "cleared itself". Thinks she had a colposcopy then. On 11/01/17, she had a NILM pap but was positive for HPV 16/18. I cannot find a coloposcopy report or biopsy results. She had a CKC in the OR in November 2017 that returned with SONY-1. I cannot find any indication for the CKC other than the NILM pap smear with the HPV 16/18. Patient is unclear with regard to details. She returned for pap on 12/05/18, which returned unsatisfactory but positive for HPV. Repeat pap on 01/02/19 returned with LGSIL/HPV+. She has acquired a new sexual partner in the last 5 years. SA; denies postcoital bleeding. 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 No tobacco use. She was seen for colposcopy on March 24, 2019. Cervical biopsies should SONY-1 at two locations. Her endocervical curettage returned with SONY-2 and was p16 positive.I recommended a conization procedure. She feels she is unable to undergo a procedure in clinic and wants to proceed with procedure in OR Findings: Small cervix with unclear borders and stenotic os. Lugols solution applied, which showed a small are of light colored tissue. Patient has undergone multiple conization procedures and the anatomy of the cervix is markedly altered. Complications: none - Other Other Information/Narrative: Risks benefits and alternatives to the procedure were reviewed. Consent was again confirmed. Patient was taken to the operating room where she underwent general anesthesia. She was positioned in dorsolithotomy position with legs resting in yellowfin stirrups. She was prepped and draped in the usual sterile fashion. Preoperative antibiotics were not indicated. She was given tranexamic acid. Preoperative checklist was performed. Exam under anesthesia was performed. Speculum was placed in the vagina and the cervix was visualized. It was noted to be quite small with borders that were poorly differentiated from the vaginal wall. Stenotic cervical os. Speculum was removed and BME was again performed to palpate borders of cervix. Single-tooth tenaculum was placed at the anterior cervical lip. Paracervical block was administered using a total of 20 cc of 1% lidocaine with epinephrine was injected at the 4:00 and 8:00 positions lateral to the portio of the cervix. Lugols solution was applied. An Allis clamp was placed at the posterior aspect of the cervix to elevate it and better differentiate the posterior margins. Cervical portio was too small to accommodate placement of stay sutures. A #11 blade scalpel was used to remove the central portion of the cervix, making a circumferential incision around the cervical os. The cone was grasped and elevated and completely resected from the cervical bed using long Perez scissors. Tenaculum was removed. Good hemostasis was noted. Monsels solution was applied and a square of folded surgicel was applied to the cone bed as a preemptive measure. All instruments were removed from the vagina. Procedure was well tolerated and without complication.
[2019-05-24] MEDS ORDERED: HYDROmorphone 2 MG TABLET PO PRN (16:19)
[2019-05-24] MEDS ORDERED: HYDROmorphone 0.5 MG/0.5 ML SYRINGE ONE (16:21)
[2019-05-24 17:03] VITALS: BP 139/88
== END 2019-05-24 12:12 | disposition home or self-care (01) ==
LOC: SDS 12:11
PROVIDERS: ATTEND Obstetrics & Gynecology
PROC: 0UBC7ZX Excision of Cervix, Via Natural or Artificial Opening, Diagnostic (ICD-10-PCS; principal; 2019-05-24 13:45)
DX: N87.1 Moderate cervical dysplasia (principal); I10 Essential (primary) hypertension; G89.29 Other chronic pain; M19.90 Unspecified osteoarthritis, unspecified site; M48.061 Spinal stenosis, lumbar region without neurogenic claudication; R87.69 Abnormal cytological findings in specimens from other female genital organs
CPT/HCPCS: 57520; A9270; J1170; J7120

== ENCOUNTER 2019-06-23 10:22 | Outpatient (CLI) | payer MEDICAID ==
--- NOTE | 2019-06-23 15:44 | XRAY Report ---
Reason: TOE PAIN, LEFT Procedure Date: 06/23/2019 Accession Number: [id number] / [id number] Procedure: XR - Foot 3 View LT CPT Code: Final Report FULL RESULT: EXAM: LEFT FOOT RADIOGRAPHY EXAM DATE: 06/23/2019 10:33 AM. CLINICAL HISTORY: TOE PAIN, LEFT. COMPARISON: None. TECHNIQUE: 3 views. FINDINGS: Bones: Normal. No fractures or bone lesions. Joints: Normal. No subluxations. Soft Tissues: Normal. No soft tissue swelling. IMPRESSION: No acute osseous or articular abnormality. RADIA
== END 2019-06-23 10:23 | disposition home or self-care (01) ==
LOC: DI 10:22
PROVIDERS: ATTEND Nurse Practitioner
DX: M79.675 Pain in left toe(s) (principal)

== ENCOUNTER 2019-10-04 08:44 | Day surgery (SDC) | payer MEDICAID ==
[2019-10-04] MEDS ORDERED: LIDOCAINE-MPF 2% 5 ML VIAL IM ONE (08:45)
[2019-10-04] MEDS ORDERED: ONDANSETRON 4 MG/2 ML VIAL IVP ONE (08:45)
[2019-10-04] MEDS ORDERED: MIDAZOLAM 2 MG/2 ML VIAL IVP ONE (08:45)
[2019-10-04] MEDS ORDERED: fentaNYL 100 MCG/2 ML VIAL IVP ONE (08:45)
[2019-10-04] MEDS ORDERED: ePHEDrine 50 MG/ML VIAL IVP ONE (08:45)
[2019-10-04] MEDS ORDERED: KETAMINE 500 MG/10 ML VIAL IVP ONE (08:45)
[2019-10-04] MEDS ORDERED: ROCURONIUM 50 MG/5 ML VIAL IVP ONE (08:45)
[2019-10-04] MEDS ORDERED: DEXAMETHASONE 4 MG/ML VIAL IVP ONE (08:45)
[2019-10-04] MEDS ORDERED: CEFAZOLIN SODIUM IN 0.9 % NACL 2 GM/100 ML BAG IV ONE (09:29)
[2019-10-04] MEDS ORDERED: LACTATED RINGERS 1,000 ML IV ONE ×2 (09:29→13:57)
[2019-10-04] MEDS ORDERED: ACETAMINOPHEN 1,000 MG/100 ML 100 ML IV ONE (09:30)
[2019-10-04] MEDS ORDERED: GABAPENTIN 400 MG CAPSULE ONE (09:31)
[2019-10-04] MEDS ORDERED: PHENAZOPYRIDINE 100 MG TABLET PO ONE (09:31)
--- NOTE | 2019-10-04 09:38 | ANESTHESIA ---
Pre-Anesthesia VS, & Labs - Diagnosis SONY 2 - Procedure laparoscopic assisted vaginal hysterectomy Vital Signs: Temp Pulse Resp BP Pulse Ox 36.3 C L 87 18 124/99 H 99 10/04/19 09:08 10/04/19 09:08 10/04/19 09:08 10/04/19 09:08 10/04/19 09:08 Height 5 ft 7 in Weight (kg) 71 kg Body Mass Index 23.3 - NPO >8 hours - Is Patient ?: No - Lab Results Current Lab Results: Laboratory Tests 10/04/19 09:29: POC Whole Bld Glucose 103 H Home Medications and Allergies Home Medications: Ambulatory Orders Ascorbic Acid [Vitamin C] 500 mg PO DAILY 09/28/19 Cholecalciferol [Vitamin D3] 2,000 unit PO DAILY 09/28/19 Multivitamin 1 each PO DAILY 09/28/19 Potassium Chloride 10 meq PO DAILY 09/28/19 Vitamin E 400 unit PO DAILY 09/28/19 Lisinopril [Prinivil] 10 mg PO DAILY 05/23/19 Ascorbic Acid [Vitamin C] 500 mg PO DAILY 09/28/19 Cholecalciferol [Vitamin D3] 2,000 unit PO DAILY 09/28/19 Multivitamin 1 each PO DAILY 09/28/19 Potassium Chloride 10 meq PO DAILY 09/28/19 Vitamin E 400 unit PO DAILY 09/28/19 Allergies/Adverse Reactions: Allergies Allergy/AdvReac Type Severity Reaction Status Date / Time acetaminophen AdvReac Unknown Verified 10/04/19 09:41 codeine AdvReac Nausea Verified 09/28/19 15:42 ibuprofen AdvReac caused Verified 09/28/19 15:42 blood in urine Anes History & Medical History - Anesthetic History Anesthesia Complications: reports: No previous complications - Medical History Cardiovascular: reports: Hypertension Pulmonary: reports: None Gastrointestinal: reports: None Urinary: reports: Other (history of childhood nephritis) Neuro: reports: None Musculoskeletal: reports: Osteoarthritis, Chronic back pain (s/p RICKI) Endocrine/Autoimmune: reports: None Blood Disorders: reports: None Skin: reports: None Smoking Status: Never smoker Psychosocial: reports: Alcohol (1-2 times per week), Other (PTSD) - Surgical History General:  Gynecologic: Other (cold knife) Other Past Surgical History: history of nephritis as a child. Had kidney biopsies Exam General: Alert, Oriented x3, Cooperative, No acute distress Dental: WNL Mouth Openin Fingerbreadth Neck Mobility: Normal Mallampati classification: II Thyromental Distance: 4-6 cm Respiratory: Lungs clear, Normal breath sounds, No respiratory distress, No accessory muscle use Cardiovascular: Regular rate, Normal S1, Normal S2, No murmurs Mental/Cognitive Status: Alert/Oriented X3, Normal for patient Plan Anesthesia Type: General Consent for Procedure(s) Verified and Reviewed: Yes Code Status: Attempt Resuscitation ASA classification: 2-Mild systemic disease Is this case an emergency?: No
[2019-10-04] MEDS ORDERED: METHYLENE BLUE 0.5% 50 MG/10 ML AMPULE ONE (10:30)
[2019-10-04] MEDS ORDERED: BUPIVACAINE 0.25% PF 30 ML VIAL ONE (10:30)
[2019-10-04] MEDS ORDERED: VASOPRESSIN 20 UNIT/ML VIAL ONE (10:31)
[2019-10-04] MEDS ORDERED: METHYLENE BLUE 0.5% 50 MG/10 ML AMPULE IR ONE (11:36)
[2019-10-04] MEDS ORDERED: BUPIVACAINE 0.25% PF 30 ML VIAL SUBQ ONE ×2 (11:38)
[2019-10-04] MEDS ORDERED: KETOROLAC 15 MG/ML VIAL ONE (13:50)
[2019-10-04] MEDS ORDERED: HYDROmorphone 0.5 MG/0.5 ML SYRINGE ONE (14:08)
[2019-10-04] MEDS ORDERED: oxyCODONE 5 MG TABLET PO PRN ×2 (14:43→16:46)
[2019-10-04] MEDS ORDERED: oxyCODONE 5 MG TABLET ONE (15:35)
[2019-10-04] MEDS ORDERED: HYDROmorphone 0.5 MG/0.5 ML SYRINGE IVP PRN (16:46)
[2019-10-04] MEDS ORDERED: oxyCODONE 10 MG/0.5 ML SYRINGE PO PRN (16:46)
[2019-10-04] MEDS ORDERED: ONDANSETRON 4 MG/2 ML VIAL IVP PRN (16:46)
[2019-10-04] MEDS ORDERED: ACETAMINOPHEN 500 MG TABLET PO PRN (16:49)
--- NOTE | 2019-10-04 17:21 | OPERATIVE REPORT ---
Operative Report - General Procedure Date: 10/04/19 Planned Procedure: Total laparoscopic hysterectomy with bilateral salpingectomy, possible oophorectomy, and cystoscopy Pre-Op Diagnosis: Recurrent advanced cervical dysplasia Procedure Performed: Laparoscopic oophorectomy/cystectomy and salpingectomy Post Op Diagnosis: Same and obliteration of the cervix and right ovarian cyst - Procedure Note Primary Surgeon: Cassidy Tanner MD Secondary Surgeon: Vaishali Zamora MD Anesthesia Provider: Subha Gorman CRNA Anesthesia Technique: General ET tube Pathology: Right fallopian tube and ovary with cyst. IV Fluids (mL): 1,200 Estimated Blood Loss (mL): 20 Urine Output (mL): 200 Indications: Patient is a 63-year-old with recurrent high grade cervical dysplasia s/p CKC x2 here for total laparoscopic hysterectomy and bilateral salpingectomy, possible oophorectomy, and cystoscopy. Findings: Cervical margins were obliterated and stenotic cervical os. Scarring of the vagina overlying external cervix. Right sided ovarian cyst, about 4 cm. Otherwise normal appearing pelvis and abdomen, normal uterus, tubes, and ovaries. Complications: Converted to laparoscopic salpingo-oophorectomy, right sided due to presence of ovarian cyst. Identification of the cervical margins was challenging given history of 2 prior cold knife cone procedures and scarification of the apex of the vagina. The learning and development assistant became unwell and was unable to continue with the case. No other surgical assistants were available. Given the obliteration of surgical landmarks rendering this a higher risk case and the absence of an available skilled assistant production editor, the decision was made to proceed with the right sided salpingo-oophorectomy only and then terminate the remainder of the case. - Other Other Information/Narrative: Risks benefits and alternatives of the procedure were reviewed. Consent was again confirmed. Patient was brought to the operating room and underwent general anesthesia. She was placed in dorsal lithotomy position with legs resting in yellowfin stirrups. SCDs were in place and activated. Cefazolin 2 g IV was administered prior to start of procedure. She was prepped and draped in the usual sterile fashion. Surgical timeout was performed. Johns catheter was back filled with 50 cc of dilute methylene blue and the catheter was clamped. Bimanual exam was performed. The distal aspect of the vagina was closed with scar tissue and adhesions. Sterile speculum was placed and cervix could not be visualized. The upper aspect of the vagina was opened with blunt manual separation of the vaginal adhesions. Sterile speculum was placed and no clearly identifiable cervical tissue was visualized. Speculum was removed and a thickness at the apex of the vagina corresponding to the cervix was palpated. No discrete cervical tissue was palpated and cervical os was not easily palpated. Sterile speculum was placed and area of thickness was again palpated. Single toothed tenaculum was placed at this thickness. Decision was made to insufflate the abdomen and attempt to dilate the cervix would be performed while under direct laparoscopic observation. The base of the umbilicus was anesthetized with intradermal injection of 0.25% Marcaine. A 5 mm skin incision was made with a scalpel. A 5 mm blunt trocar was inserted under direct visualization using Visiport. Once the port was confirmed to be placed intraperitoneally, the abdomen was insufflated to 15 mmHg with CO2 gas Exploration of the abdomen and pelvis was confirmed that no injury was sustained with placement of the trocar. Two additional 5 mm ports were placed in the right and left lower quadrants, taking care to avoid the epigastric arteries, while under direct visualization via laparoscopic guidance. The abdomen was explored with the laparoscope, with findings as noted. The primary surgeon again attempted manipulation of the cervix and dilation of the stenotic os in an attempt to place the Armen Ironer Machine manipulator. While undergoing this attempt, the learning and development assistant became ill and had to step out of the operating room. Meteorological Equipment Repairer returned and again attempted to provide assistance but again had to leave for health reasons. No other skilled surgical assistance were available. Given the complexity of the case and the lack of a skilled learning and development assistant, the decision made to remove the right ovary given the presence of a 4-5 cm ovarian cyst, absent of any complexity, and terminate the remainder of the procedure. The ureter was identified on the right side and vermiculation was observed well away from the infundibulopelvic ligament. The IP ligament was sealed and t ransected with the Ligasure device. The broad ligament was then incised up to the utero-ovarian ligament. The utero-ovarian ligament was then sealed and transected with the ligasure. The fallopian tube was sealed and transected at its insertion point in the uterine cornua. The tube, ovary, and cyst were placed in the culk de sac. The left lateral port was removed and replaced with a 10 mm port. The ovary, cyst, and fallopin tubes were then removed from the field and placed in an Endocatch retrieval device. The Endocatch bag was brought through the 10 mm port site with removal of the trocar. A spinal needle on a 10 cc syringe was used to decompress the cyst and it was removed form the abdomen in the Endocatch bag without spillage of cyst fluid into the abdomen or pelvis. Good hemostasis was noted. The ureter was again visualized and vermiculation was noted. A survey of the pelvic an abdomen was completed. Good hemostasis was noted. Some minor disruption of some epiploica was noted but the bowel serosa was intact and no active bleeding was noted. A Regan Marie fascial closure device was inserted through the 10 mm port site and the site was closed with 0-Vicryl. Closure of the fascia was confirmed with palpation and direct visualization. The abdomen was partially desufflated. Pedicles were observed under decreased pressure and good hemostasis was again confirmed. All instruments were removed from the abdomen. Skin was closed with interrupted subcuticular stitches using 4-0 Monocryl. Dermabond was applied over the suture sites. The final sponge needle and inst rument counts were correct at completion of the procedure patient was awakened taken to the postanesthesia care unit in stable condition. Dr. Zamora assisted with camera manipulation and port site placement prior to stepping out of the case for health related reasons.
[2019-10-04] MEDS ORDERED: HYDROmorphone 2 MG TABLET PO PRN (18:04)
[2019-10-04] MEDS: oxyCODONE 5 MG TABLET PO PRN (19:44)
[2019-10-04] MEDS ORDERED: lisinopriL 5 MG TABLET PO SCH (22:00)
[2019-10-05 04:33] VITALS: BP 120/73
[2019-10-05] MEDS: oxyCODONE 5 MG TABLET PO PRN (04:45)
== END 2019-10-05 05:15 | disposition home or self-care (01) ==
LOC: SDS 08:44 → MS3 16:45 → SDS 10-05 05:15
PROVIDERS: ATTEND Obstetrics & Gynecology
PROC: 0UB54ZZ Excision of Right Fallopian Tube, Percutaneous Endoscopic Approach (ICD-10-PCS; 2019-10-04)
PROC: 0UB04ZZ Excision of Right Ovary, Percutaneous Endoscopic Approach (ICD-10-PCS; principal; 2019-10-04 10:30)
DX: N87.1 Moderate cervical dysplasia (principal); N83.201 Unspecified ovarian cyst, right side; I10 Essential (primary) hypertension
CPT/HCPCS: 58661; 86850; 86900; 86901; A9270; J0131; J0690; J1170; J7120

== ENCOUNTER 2019-11-30 06:22 | Inpatient (IN) | payer MEDICAID ==
[~2019-11-30 06:22] MED LIST: ACETAMINOPHEN 1,000 MG/100 ML 100 ML IV ONE; CEFAZOLIN SODIUM IN 0.9 % NACL 2 GM/100 ML BAG IV ONE; CELECOXIB 100 MG CAPSULE PO ONE; GABAPENTIN 400 MG CAPSULE ONE; LACTATED RINGERS 1,000 ML IV ONE; PHENAZOPYRIDINE 100 MG TABLET PO ONE
[2019-11-30] MEDS ORDERED: NALOXONE 0.4 MG/ML VIAL IVP PRN (07:16)
[2019-11-30] MEDS ORDERED: MORPHINE 2 MG/ML CARPUJECT IVP PRN (07:16)
[2019-11-30] MEDS ORDERED: ePHEDrine 50 MG/ML VIAL IVP PRN (07:16)
[2019-11-30] MEDS ORDERED: ATROPINE ABBOJECT 1 MG/10 ML SYRINGE IVP PRN (07:16)
[2019-11-30] MEDS ORDERED: fentaNYL 100 MCG/2 ML VIAL IVP PRN (07:16)
[2019-11-30] MEDS ORDERED: METOCLOPRAMIDE 10 MG/2 ML VIAL IVP PRN (07:16)
[2019-11-30] MEDS ORDERED: ONDANSETRON 4 MG/2 ML VIAL IVP PRN (07:16)
[2019-11-30] MEDS ORDERED: HYDROmorphone 0.5 MG/0.5 ML SYRINGE IVP PRN (07:16)
--- NOTE | 2019-11-30 07:16 | ANESTHESIA ---
Pre-Anesthesia VS, & Labs - Diagnosis SONY-2 - Procedure Total abdominal hysterectomy Height 5 ft 7 in Weight (kg) 64 kg Body Mass Index 23.3 - NPO >8 hours - Is Patient ?: No - Lab Results Current Lab Results: Laboratory Tests 11/30/19 07:01: POC Whole Bld Glucose 114 H Lab results reviewed: Yes Home Medications and Allergies Lisinopril [Prinivil] 10 mg PO DAILY 05/23/19 Ascorbic Acid [Vitamin C] 500 mg PO DAILY 09/28/19 Cholecalciferol [Vitamin D3] 2,000 unit PO DAILY 09/28/19 Multivitamin 1 each PO DAILY 09/28/19 Potassium Chloride 10 meq PO DAILY 09/28/19 Vitamin E 400 unit PO DAILY 09/28/19 Allergies/Adverse Reactions: Allergies Allergy/AdvReac Type Severity Reaction Status Date / Time codeine AdvReac Nausea Verified 09/28/19 15:42 duloxetine AdvReac Anxiety Verified 10/04/19 10:16 ibuprofen AdvReac caused Verified 09/28/19 15:42 blood in urine Anes History & Medical History - Anesthetic History Anesthesia Complications: reports: No previous complications Family history of Anesthesia Complications: Denies Family history of Malignant Hyperthermia: Denies - Medical History Cardiovascular: reports: Hypertension Pulmonary: reports: Other Gastrointestinal: reports: None Urinary: reports: Other Neuro: reports: None Musculoskeletal: reports: Osteoarthritis, Chronic back pain Endocrine/Autoimmune: reports: None Blood Disorders: reports: None Skin: reports: None Smoking Status: Never smoker - Surgical History Gynecologic: Other Results - EKG Results EKG Comparison: Reviewed EKG Exam General: Alert, Oriented x3, Cooperative, No acute distress Dental: WNL Mouth Openin Fingerbreadth Neck Mobility: Normal Mallampati classification: II Cardiovascular: Regular rate, Normal S1, Normal S2, No murmurs Plan Anesthesia Type: General, Transverse Abdominis Plane (TAP) Block Regional Block: Per Surgeon's request for Post Op pain control Consent for Procedure(s) Verified and Reviewed: Yes Code Status: Attempt Resuscitation ASA classification: 2-Mild systemic disease Is this case an emergency?: No
[2019-11-30] MEDS ORDERED: SODIUM CHLORIDE 0.9% 30 ML ONE (07:20)
[2019-11-30] MEDS ORDERED: ROPIVACAINE 0.5% PF 20 ML AMPULE ONE (07:20)
[2019-11-30] MEDS ORDERED: LACTATED RINGERS 1,000 ML IV SCH (08:00)
[2019-11-30] MEDS ORDERED: BUPIVACAINE 0.25% PF 30 ML VIAL ONE (08:38)
[2019-11-30] MEDS ORDERED: BUPIVACAINE 0.25% PF 30 ML VIAL SUBQ ONE (08:40)
[2019-11-30] MEDS ORDERED: ONDANSETRON 4 MG/2 ML VIAL IVP ONE (09:48)
[2019-11-30] MEDS ORDERED: ACETAMINOPHEN 1,000 MG/100 ML 100 ML IV ONE (09:48)
[2019-11-30] MEDS ORDERED: ROCURONIUM 50 MG/5 ML VIAL IVP ONE (09:48)
[2019-11-30] MEDS ORDERED: DEXAMETHASONE 4 MG/ML VIAL IVP ONE (09:48)
[2019-11-30] MEDS ORDERED: NEOSTIGMINE 1 MG/1 ML 10 ML MDV IVP ONE (09:48)
[2019-11-30] MEDS ORDERED: PROPOFOL 200 MG/20 ML VIAL IVP ONE (09:48)
[2019-11-30] MEDS ORDERED: fentaNYL 100 MCG/2 ML VIAL IVP ONE (09:48)
[2019-11-30] MEDS ORDERED: MIDAZOLAM 2 MG/2 ML VIAL IVP ONE (09:48)
[2019-11-30] MEDS ORDERED: KETAMINE 500 MG/10 ML VIAL IVP ONE (09:48)
[2019-11-30] MEDS ORDERED: HYDROmorphone 1 MG/ML CARPUJECT IVP ONE (09:48)
[2019-11-30] MEDS ORDERED: GLYCOPYRROLATE 1 MG/5 ML VIAL IVP ONE (09:48)
[2019-11-30] MEDS ORDERED: HYDROmorphone 1 MG/ML CARPUJECT IVP PRN (11:07)
[2019-11-30] MEDS ORDERED: SIMETHICONE CHEW 80 MG TABLET PO PRN (11:07)
[2019-11-30] MEDS ORDERED: ONDANSETRON ODT 4 MG TABLET TL PRN (11:07)
[2019-11-30] MEDS ORDERED: fentaNYL 100 MCG/2 ML VIAL ONE (11:11)
--- NOTE | 2019-11-30 12:07 | ANESTHESIA POST OP EVALUATION ---
Anesthesia Post Eval - Post Anesthesia Eval Vitals: Last Vital Signs Temp 36.3 C L 11/30/19 11:45 Pulse 88 11/30/19 11:45 Resp 16 11/30/19 11:45 BP 102/82 H 11/30/19 11:45 Pulse Ox 96 11/30/19 11:45 CV Function Including HR & BP: positive: Stable Pain Control: positive: Satisfactory Nausea & Vomiting: positive: Negative Mental Status: positive: Baseline Respiratory Status: Airway Patent Hydration Status: Satisfactory Anesthesia Complications: positive: None
[2019-11-30] MEDS ORDERED: LACTATED RINGERS 1,000 ML IV ONE (12:19)
[2019-11-30] MEDS: LACTATED RINGERS 1,000 ML IV SCH ×2 (12:31→19:31)
[2019-11-30] MEDS: ACETAMINOPHEN 500 MG TABLET PO SCH ×2 (12:40→19:30)
[2019-11-30] MEDS: GABAPENTIN 300 MG CAPSULE PO SCH ×2 (13:31→20:10)
[2019-11-30] MEDS: oxyCODONE 5 MG TABLET PO PRN ×2 (16:13→20:10)
[2019-11-30] MEDS ORDERED: ALBUTEROL NEB 2.5 MG/3 ML INH PRN (16:36)
--- NOTE | 2019-11-30 16:39 | OPERATIVE REPORT ---
Operative Report - General Admit Date: 11/30/19 Planned Procedure: Total abdominal hysterectomy and left sided salpingoophorectomy Pre-Op Diagnosis: recurrent SONY-2, cervical involution Procedure Performed: Total abdominal hysterectomy and left sided salpingo-oophorectomy Post Op Diagnosis: Same - Procedure Note Primary Surgeon: Cassidy Tanner MD Secondary Surgeon: Jasmeet Miles MD Anesthesia Provider: Jacobo Flores CRNA Anesthesia Technique: General ET tube Pathology: 1) Uterus with cervix and left tube and ovary 2) Resdual cervical tissue IV Fluids (mL): 700 Estimated Blood Loss (mL): 10 Urine Output (mL): 25 (Johns catheter was back filled and UOP was not assessed prior to addition of NS. 25 cc represents accumulation after backfill of bladder. ) Indications: Patient is a 64 yo female with history of recurrent advanced cervical dysplasia. She has undergone 2 cold knife cone procedures. She had requested hysterectomy to avoid the need for further conization procedures. However, her cervix had become small and stenotic due to multiple surgeries and could not accommodate the uterine manipulator necessary for TLH. As such, she opted to proceed with open abdominal hysterectomy and left sided salpingo-oophorectomy. Right tube and ovary are surgically absent. Findings: Small, normal appearing uterus and left fallopian tube and ovary. The right fallopian tube and ovary were surgically absent. Complications: none - Other Other Information/Narrative: Risks benefits and alternatives of the procedure were discussed. Written informed consent was obtained. Patient was taken to the operating room where spinal anesthesia was placed and found to be adequate. She was prepped and draped in the usual sterile fashion in the dorsal supine position with a leftward tilt. Johns catheter was in place. SCDs were in place and activated. Cefazolin 2 g IV was given as a preoperative antibiotic. Preoperative timeout was performed. A total of 20 cc of 1% lidocaine with epinephrine was injected into the suture line prior to making the incision. A Pfannenstiel incision was made in the skin with a scalpel and carried through the underlying layer of fascia in a combination of cautery and blunt dissection. The fascia was incised in the midline, and the incision was extended laterally with the Perez scissors. The superior aspect of the fascial incision was grasped with the Akosua clamps, elevated, and the underlying rectus muscles were dissected off bluntly and sharply using the Perez scissors. Attention was then turned to the inferior aspect of the incision which in a similar fashion was grasped, tented up with Akosua clamps, and the underlying rectus muscles dissected off with cautery and blunt dissection. The rectus muscles were then in the midline. The peritoneum was identified, tented up, and entered bluntly. The peritoneal incision was extended superiorly and inferiorly with good visualization of the bladder. Laparotomy revealed no obvious abnormalities. An O'Efrain-O'Walters retractor was placed and the bowel was packed away into the upper abdomen to improve visualization and protect adjacent tissue. The uterus itself appeared small and mobile. The left fallopian tube and ovary appeared normal. The right fallopian tube and ovary were surgically absent. The cornua were grasped using Akosua clamps and the uterus elevated. The round ligament on the left was grasped and divided using cautery. The peritoneum was opened lateral to the infundibulopelvic ligaments. The anterior leaf of the broad ligament was divided and a bladder flap created. The retroperitoneal space was then dissected out. The ureter was identified and found to be well low in the pelvis and clear of the surgical field. An avascular window was found in the posterior leaf of the broad ligament and an aperture was created. The infundibulopelvic ligament was clamped, sealed, and cut with the Ligasure device. Similar inspection was carried out on the right with the ureter again found to be well low in the pelvis and clear of the surgical field. Right sided salpingoophorectomy had been completed during a prior procedure. Once the anterior leaf of the broad ligament was completely divided the bladder was taken down off the lower segment of the uterus and the cervix using (cautery-blunt dissection). The uterine vessels were skeletonized bilaterally. The uterine vessels were bilaterally clamped, sealed, and cut with the Ligasure device. The cardinal ligaments were bilaterally clamped, sealed and cut with the Ligasure. Because the lower margins of the cervix were not easily identifiable, the bladder was backfilled with 420 cc of NS to identify the lower margin of the bladder. With the bladder margin noted to be well away from the area of attention, two curved clamps were placed under the cervix bilaterally. CurvedJorgingeron scissors were used to divide the cervix sharply from the vagina. The cervix was then divided sharply from the vagina. The uterus, left tube and ovary, and cervix were all sent to pathology. The residual tissue remaining abive the jaws of the clamps were sharply dissected off the clamp and sent to pathology as potential residual cervical tissue. The uteroscral ligaments were contained within the curved clamp bilaterally, and were cut and suture ligated. Both corners of the vaginal vault were secured and the vault was closed with a running locking suture. All pedicles were then sequentially checked for hemostasis which appeared excellent. The pelvis was thoroughly irrigated with sterile water. All packs and retractors were removed from the abdomen. The bowel pack was then removed and the omentum and small bowel were assessed for injury and hemostasis. Abdomen was swept manually by both surgeons to assess for remaining lap sponges and the abdomen and pelvis were noted to be clear of any sponges. Sponges counts were noted to be correct prior to closing the abdomen. The peritoneum was then reapproximated with 2-0 Vicryl in a running fashion. The rectus muscles were then reapproximated using interrupted [id number] sutures using 2-0 Chromic. Good hemostasis was noted. The subfascial space was inspected and hemostasis obtained with cautery. The fascia was then closed using 0 Vicryl in a running fashion starting from the left lateral edge to the midline. A second suture was used to close the fascia in a running fashion starting from the right lateral edge and meeting in the midline, agian using 0- Vicryl. The subcutaneous tissue was then irrigated and closed using 2-0 chromic in a running subcutaneous suture. Skin was closed in a running subcuticular suture using 4-0 Monocryl. Steri-Strips were applied to reinforce the incsion and dressing was applied. At the end of the procedure all sponge, needle and instrument counts were correct. Estimated blood loss was 10 ml. The patient was extubated and taken to recovery in stable condition. Dr. Miles assisted with retraction, suturing, and ligation of pedicles on the left side of the uterus.
[2019-11-30] MEDS: DOCUSATE SODIUM 100 MG CAPSULE PO SCH (20:10)
[2019-12-01] MEDS: oxyCODONE 5 MG TABLET PO PRN ×4 (01:32→19:25)
[2019-12-01] MEDS: ACETAMINOPHEN 500 MG TABLET PO SCH ×3 (03:53→20:51)
[2019-12-01] MEDS: LACTATED RINGERS 1,000 ML IV SCH (05:31)
[2019-12-01 05:32] LABS: BASOPHILS % (AUTO) 0.2 %; EOSINOPHILS % (AUTO) 0.1 %; LYMPHOCYTES % (AUTO) 11.9 %; MEAN CORPUSCULAR HEMOGLOBIN 32.3 pg (27.0-31.0); MEAN CORPUSCULAR HGB CONC 35.5 g/dL (32.0-36.0); MEAN CORPUSCULAR VOLUME 91.1 fL (81.0-99.0); MONOCYTES % (AUTO) 11.9 %; NEUTROPHILS # (AUTO) 12.5 10^3/uL (1.5-6.6); NEUTROPHILS % (AUTO) 75.2 %; PLT - PLATELET COUNT 360 10^3/uL (130-450); RED BLOOD COUNT 3.71 10^6/uL (4.20-5.40); RED CELL DISTRIBUTION WIDTH 13.2 % (12.0-15.0); WHITE BLOOD COUNT 16.6 x10^3/uL (4.8-10.8)
[2019-12-01] MEDS: GABAPENTIN 300 MG CAPSULE PO SCH ×3 (06:14→20:51)
[2019-12-01] MEDS: DOCUSATE SODIUM 100 MG CAPSULE PO SCH ×2 (08:32→20:51)
[2019-12-01 09:57] LABS: ALBUMIN/GLOBULIN RATIO 0.8 (1.0-2.2); BILIRUBIN,TOTAL 0.6 mg/dL (0.2-1.0); CALCIUM 8.4 mg/dL (8.5-10.3); CREATININE 0.5 mg/dL (0.4-1.0); TOTAL PROTEIN 6.6 g/dL (6.7-8.2)
--- NOTE | 2019-12-01 12:19 | PROVIDER PROGRESS NOTE ---
Subjective - Prog Note Date Prog Note Date: 12/01/19 Prog Note Time: 12:18 - Subjective Subjective: Up and ambulating with walker and assistance. Voiding regularly. +Flatus. Tolerating regular diet without nausea/vomiting. Johns removed this am at 5 am. UOP 1150 cc collected overnight. Objective - Vital Signs/Intake & Output Vital Signs: Vital Signs x48h Temp Pulse Pulse Resp BP Pulse Ox 12/01/19 11:48 79 15 12/01/19 10:39 90 24 121/90 H 96 12/01/19 07:23 97.5 F L 73 18 120/78 98 Intake & Output: Intake & Output 11/28/19 11/29/19 11/30/19 12/01/19 23:59 23:59 23:59 23:59 Intake Total 1638.34 1488.333 Output Total 650 700 Balance 988.34 788.333 - Objective General Appearance: positive: No acute distress Neck: positive: Nml inspection Respiratory: positive: No respiratory distress, Breath sounds nml Cardiovascular: positive: Regular rate & rhythm Abdomen: positive: Non-tender, Other (Dressing CD) Back: positive: Nml inspection Skin: positive: Color nml Extremities: positive: Non-tender, No pedal edema Neurologic/Psychiatric: positive: Oriented x3 - Lab Results Fish Bones: 12/01/19 04:30 12/01/19 04:30 Other Labs: Lab Results x24hrs 12/01/19 12/01/19 Range/Units 04:30 04:30 WBC 16.6 H (4.8-10.8) x10^3/uL RBC 3.71 L (4.20-5.40) 10^6/uL Hgb 12.0 (12.0-16.0) g/dL Hct 33.8 L (37.0-47.0) % MCV 91.1 (81.0-99.0) fL MCH 32.3 H (27.0-31.0) pg MCHC 35.5 (32.0-36.0) g/dL RDW 13.2 (12.0-15.0) % Plt Count 360 (130-450) 10^3/uL MPV 10.0 (7.9-10.8) fL Neut # (Auto) 12.5 H (1.5-6.6) 10^3/uL Lymph # (Auto) 2.0 (1.5-3.5) 10^3/uL Teller # (Auto) 2.0 H (0.0-1.0) 10^3/uL Eos # (Auto) 0.0 (0.0-0.7) 10^3/uL Baso # (Auto) 0.0 (0.0-0.1) 10^3/uL Absolute Nucleated RBC 0.00 x10^3/uL Nucleated RBC % 0.0 /100WBC Sodium 131 L (135-145) mmol/L Potassium 3.2 L (3.5-5.0) mmol/L Chloride 94 L (101-111) mmol/L Carbon Dioxide 26 (21-32) mmol/L Anion Gap 11.0 (6-13) BUN 7 (6-20) mg/dL Creatinine 0.5 (0.4-1.0) mg/dL Estimated GFR (MDRD) 125 (>89) Glucose 120 H (70-100) mg/dL Calcium 8.4 L (8.5-10.3) mg/dL Total Bilirubin 0.6 (0.2-1.0) mg/dL AST 35 (10-42) IU/L ALT 26 (10-60) IU/L Alkaline Phosphatase 67 (42-121) IU/L Total Protein 6.6 L (6.7-8.2) g/dL Albumin 3.0 L (3.2-5.5) g/dL Globulin 3.6 (2.1-4.2) g/dL Albumin/Globulin Ratio 0.8 L (1.0-2.2) Assessment/Plan - Problem List (1) Status post abdominal hysterectomy and left salpingo-oophorectomy Impression: POD#1: Doing well post op Up and ambulating with assistance -Cont to work on ambulation Tolerating po Voiding Pain well managed on po meds +Flatus PPX: -enoxaparin 40 mcg SQ this am FEN: -Potassium increased from 2.8 but remains low at 3.2 KCl 50 meQ po this am -Sodium remains low, will finsh IV fluids and then transition or oral rehydration fl;uids (gatorade) -DC IV when current bag of LR is complete Anticipate DC home in am
[2019-12-01] MEDS ORDERED: POTASSIUM CHLORIDE 20 MEQ TABLET PO SCH (12:22)
[2019-12-01] MEDS: ENOXAPARIN 40 MG/0.4 ML SYRINGE SUBQ SCH (12:50)
--- NOTE | 2019-12-01 13:57 | HISTORY & PHYSICAL EXAMINATION ---
HPI - History of Present Illness HPI Comment/Other: Patient is a 64-year-old [id number] for preoperative evaluation for total abdominal hysterectomy with left salpingectomy and oophorectomy/cystoscopy. Ms. Gerber is well known to this clinic. She recently underwent an attempted laparoscopic assisted vaginal hysterectomy due to recurrent SONY-2. She had undergone a second cold knife cone biopsy for advanced cervical dysplasia in May of this year. At time of attempted LAVH, her cervix was no longer vi sible or physically accessible form a vaginal approach and a manipulator could not be placed. For this reason, as well as illness rendering the assistant store manager unable to operate, her hysterectomy was not completed. Her right tube and ovary were removed due to the presence of oan ovarian cyst. She has a long history of cervical dysplasia for which she has had multiple procedures. Given that it seem s to be advancing and due to the degree of dysplasia she would like to proceed with a hysterectomy.Further, it would be difficult to monitor her pap smears given the anatomical changes in her cervix. It was recommended that she follow- up with SOCIAL SERVICES MANAGER [facility] for possible robotic procedure. She is unable to leave the [place] for surgery and requests an attempt at hysterectomy via an abdominal approach. She is aware that she would have to have Pap smears of the vaginal cuff despite having undergone the hysterectomy. She has chronic back pain unchanged in severity. No change in health hx since time of prior exam. Allergies: MOTRIN (Critical) DULOXETINE HCL (DULOXETINE HCL) (Critical) TRAMADOL HCL (TRAMADOL HCL TABS) (Critical) CODEINE (Severe) * DULOXETINE (Severe) Medications: PYRIDIUM 200 MG ORAL TABLET (PHENAZOPYRIDINE HCL) take 1 tab TID x 2 days; Route: ORAL METHOCARBAMOL 500 MG ORAL TABLET (METHOCARBAMOL) Take 1-2 tablets by mouth up to 4 times daily for muscle spasms. Replaces baclofen.; Route: ORAL OMEPRAZOLE 20 MG ORAL CAPSULE DELAYED RELEASE (OMEPRAZOLE) Take one capsule by mouth twice daily for acute gastritis; Route: ORAL DICYCLOMINE HCL CAPSULE (DICYCLOMINE HCL CAPS) Take one tablet by mouth 30 minutes before a meal ( on an empty stomach) SUCRALFATE SUSPENSION (SUCRALFATE SUSP) take 2 Teaspoons and let coat stomach and then later may drink water NORCO 5-325 MG ORAL TABLET (HYDROCODONE-ACETAMINOPHEN) Take one tablet by mouth up to 2 times daily as needed for severe pain; Route: ORAL POTASSIUM CHLORIDE ER 10 MEQ CR-TABS (POTASSIUM CHLORIDE) TAKE 1 TABLET BY MOUTH ONCE DAILY WITH FOOD BACLOFEN 10 MG ORAL TABLET (BACLOFEN) Take one tablet by mouth up to 3 times daily for muscle spasms.; Route: ORAL LISINOPRIL 10 MG TABS (LISINOPRIL) Take 1 tablet by mouth once daily VENTOLIN HFA 108 (90 Base) MCG/ACT INHALATION AEROSOL SOLUTION (ALBUTEROL SULFATE) Inhale two actuations every four hours as needed for wheeze; Route: INHALATION Problems: Dysuria (ICD-788.1) (QRY47-X12.0) Postoperative examination (ICD-V67.00) (GMD60-W46) Toe pain, left (ICD-729.5) (WUE56-W64.675) Preop exam (ICD-V72.84) (ROQ43-I34.818) SONY 2, moderate cervical dysplasia (ICD-622.12) (XCU76-M74.1) Abfnd Pap smear LGSIL (ICD-795.09) (FWH98-E46.612) Screening for cervical cancer (ICD-V76.2) (PRB11-H86.4) Screening for std (ICD-V74.5) (RJH98-G22.3) Screening mammogram NEC (ICD-V76.12) (MFK04-C78.31) Abdominal pain (ICD-789.00) (MDI52-V53.9) Sciatica (ICD-724.3) (IYA98-S30.30) Cervical intraepithelial neoplasia grade 1 (ICD-622.11) (UOF06-D86.0) Screening for malignant neoplasm, colon (ICD-V76.51) (GTG37-M93.11) Abfnd, Pap smear, cervix/cervical HPV NEC (ICD-079.4) (BJX50-Y52.89) Preventive health care (ICD-V70.0) (FGC06-F57.00) Immunization counseling (ICD-V65.49) (ELT99-S78.89) Intertrigo, candidal (ICD-695.89) (LNP00-C19.2) Back pain, lumbar, with radiculopathy (ICD-724.4) (CSF82-J76.16) Dysuria (ICD-788.1) (DMR84-T17.0) Physical examination (ICD-V70.0) (TLE82-E51.00) Osteopenia (ICD-733.90) (UXM35-A98.80) Elevated liver function test (ICD-790.6) (XPV11-G00.5) Hypokalemia (ICD-276.8) (XGU60-B32.6) Postmenopausal status (ICD-V49.81) (PRG05-M06.0) Allergies, seasonal (ICD-477.0) (ERQ67-N58.2) Elevated urine uric acid (ICD-791.9) (OAI19-G66.99) HTN, benign essential, controlled (ICD-401.1) (SRS03-N14) Degenerative disc disease (ICD-722.6) (MUS96-W10.80) Osteoarthritis (ICD-715.90) (UQZ38-O18.90) Sacral foraminal stenosis (ICD-724.6) (NYS57-P37.88) Past Medical History: Reviewed history from 09/12/2019 and no changes required: Her past medical history is relatively uncomplicated other than chronic back pain. She reports no changes in her health history since time of prior exam. She has not had any vaginal bleeding. No pelvic pain or changes in bowel or bladder habits. We have previously discussed hysterectomy at length. She is confident she wants to move forward with this procedure. Spinal stenosis - lumbar area- on disability- patient reported. chronic pain Childhood Nephritis H/O + HPV. had colposcopy in [place] with bx. Risk Factors: Smoked Tobacco Use: Never smoker Smokeless Tobacco Use: Never Tobacco Use Comments: childhood exposure to secondhand Passive Smoke Exposure: yes HIV High Risk Behavior: no Caffeine Use: 2 drinks per day Exercise: yes Times/wk: 7 Type of Exercise: Walking Seatbelt Use: 100 % Sun Exposure: frequently Alcohol Use: no Drug Use: no Vital Signs: Patient Profile: 63 Years Old Female Height: 65.25 inches Weight: 156 pounds BMI: 25.85 BP sittin / 87 Cuff size: regular Vitals Entered By: FRANK Castorena (September 28, 2019 1:36 PM) Meds Reviewed: Done Allergies Reviewed: Done Past Medical History: Reviewed and updated today: Her past medical history is relatively uncomplicated other than chronic back pain. She reports no changes in her health history since time of prior exam. She has not had any vaginal bleeding. No pelvic pain or changes in bowel or bladder habits. We have previously discussed hysterectomy at length. She is confident she wants to move forward with this procedure. Spinal stenosis - lumbar area- on disability- patient reported. chronic pain Childhood Nephritis H/O + HPV. had colposcopy in [place] with bx. Past Surgical History: biopsies Colposcopy w/ cervical bx &/or endocervical curettage Conization of cervix w/w/o fulguration, w/w/o D&C, CKC or laser 02/23/[place] [facility] [place] [facility]NA[facility] Review of Systems As per HPI, otherwise remaining systems are negative. Physical Constitutional: In no apparent distress. Head: Normocephalic and atraumatic. Cardiovascular: Regular rate and rhythm. Respiratory: Normal effort. Clear to auscultation bilaterally. ABD: S&NT/ND. Port sites well healed. Neurologic: Alert and oriented, normal gait and coordination. Psych: Bright and reactive affect. Cervix: Please see prior exam. Of note at prior exam patient is noted to have a small, high cervix with trauma related to two consecutive cold knife cone biopsies. During her prior attempt at hysterectomy, tissue had healed over the cervix and it is no longer readily visible through a vaginal approach. Impression & Recommendations: Problem # 1: Preop exam (ICD-V72.84) (RGF90-R03.818) Patient would like to proceed with total abdominal hysterectomy and left sided salpingoophorectomy. As per [facility] requirements, the patient signed a consent form acknowledging that she would have full loss of fertility with removal of her uterus. She notes that she has been postmenopausal for more than a decade and has no issues with signing this declaration. We reviewed the risks/benefits/alternatives to hysterectomy with salpingectomy and possible oophorectomy as well as cystoscopy. These risks include but are not limited to bleeding, infection, damage to nearby tissues and organs. In terms of bleeding , we do not expect to lose significant amounts of blood but given the possibility of damage to blood vessels, we do review risks of transfusion. Nationwide the risks of HIV is 1 in 2 million, the risk of hepatitis is 1 in 1 million. These are very low risk. What is more common is a risk of an allergic type reaction in which the patient reacts to the proteins in general blood to which they can be not matched completely. This can present as fever, hives, difficulty breathing. All of these will be managed with medications. Again we do not anticipate need to transfuse the patient but want to obtain consents in anticipation of unexpected events. The patient acknowledges this and consents to blood transfusion. In terms of infection, vagina is full of bacteria which cannot be fully removed. When the uterus is removed, it exposes the abdomen to this bacteria. For this reason we will be providing I.V. antibiotics. Patient notes that she does not have any contraindications to any antibiotic use. We reviewed the risk of damage to nearby tissues and organs particularly the risk of bladder injury, ureteral injury, bowel injury and injury to nearby vessels and nerves. Patient did provide consent to cystoscopy after the procedure at which time we will assess ureteral patency and survey the bladder for potential damage. We discussed that we use a number of surgical techniques to avoid damaging any of these tissues but sometimes events occur despite our best efforts.Given the abnormalities of her cervical anatomy, this risk is somewhat increased. We reviewed how these complications may affect her postoperative care. Patient acknowledges these potential risks. We also discussed the risks and benefits of removing her ovaries. We reviewed the results of the Nurses' Health Study which showed an increase in all cause mortality with removal of the ovaries prior to age 62. Patient is currently at age 64. We will assess whether her ovaries can be removed with minimal effort. If it appears that there will be any difficulty in removing her ovaries we will leave them in-situ. Written and informed consent was obtained . Patient was provided with a copy of all her consents as well as a copy of her preoperative labs. Patient Portal: [id number] Current Allergies: MOTRIN (Critical) DULOXETINE HCL (DULOXETINE HCL) (Critical) TRAMADOL HCL (TRAMADOL HCL TABS) (Critical) CODEINE (Severe) * DULOXETINE (Severe) Current Meds: PYRIDIUM 200 MG ORAL TABLET (PHENAZOPYRIDINE HCL) take 1 tab TID x 2 days; Route: ORAL METHOCARBAMOL 500 MG ORAL TABLET (METHOCARBAMOL) Take 1-2 tablets by mouth up to 4 times daily for muscle spasms. Replaces baclofen.; Route: ORAL OMEPRAZOLE 20 MG ORAL CAPSULE DELAYED RELEASE (OMEPRAZOLE) Take one capsule by mouth twice daily for acute gastritis; Route: ORAL DICYCLOMINE HCL CAPSULE (DICYCLOMINE HCL CAPS) Take one tablet by mouth 30 minutes before a meal ( on an empty stomach) SUCRALFATE SUSPENSION (SUCRALFATE SUSP) take 2 Teaspoons and let coat stomach and then later may drink water NORCO 5-325 MG ORAL TABLET (HYDROCODONE-ACETAMINOPHEN) Take one tablet by mouth up to 2 times daily as needed for severe pain; Route: ORAL POTASSIUM CHLORIDE ER 10 MEQ CR-TABS (POTASSIUM CHLORIDE) TAKE 1 TABLET BY MOUTH ONCE DAILY WITH FOOD BACLOFEN 10 MG ORAL TABLET (BACLOFEN) Take one tablet by mouth up to 3 times daily for muscle spasms.; Route: ORAL LISINOPRIL 10 MG TABS (LISINOPRIL) Take 1 tablet by mouth once daily VENTOLIN HFA 108 (90 Base) MCG/ACT INHALATION AEROSOL SOLUTION (ALBUTEROL SULFATE) Inhale two actuations every four hours as needed for wheeze; Route: INHALATION PMH/PSH - Past Medical History Cardiovascular: positive: Hypertension Respiratory: positive: Other Neuro: positive: None Endocrine/Autoimmune: positive: None GI: positive: None : positive: Other HEENT: positive: None Psych: positive: Anxiety, Post traumatic stress disorder Musculoskeletal: positive: Osteoarthritis, Chronic back pain Derm: positive: None MRSA Hx?: No - Past Surgical History /SOCIAL SERVICES MANAGER: positive: Other Social & Family Hx - Social History Does the pt smoke?: No Smoking Status: Never smoker Does the pt drink ETOH?: Yes Does the pt have substance abuse?: No - POLST Patient has POLST: No Meds/Allgy - Home Medications Home Medications: Ambulatory Orders Medication Instructions Recorded Confirmed Lisinopril [Prinivil] 10 mg PO DAILY 05/23/19 11/29/19 Ascorbic Acid [Vitamin C] 500 mg PO DAILY 09/28/19 11/29/19 Cholecalciferol [Vitamin D3] 2,000 unit PO DAILY 09/28/19 11/29/19 Multivitamin 1 each PO DAILY 09/28/19 11/29/19 Potassium Chloride 10 meq PO DAILY 09/28/19 11/29/19 Vitamin E 400 unit PO DAILY 09/28/19 11/29/19 - Allergies Allergies/Adverse Reactions: Allergies Allergy/AdvReac Type Severity Reaction Status Date / Time codeine AdvReac Nausea Verified 09/28/19 15:42 duloxetine AdvReac Anxiety Verified 10/04/19 10:16 ibuprofen AdvReac caused Verified 09/28/19 15:42 blood in urine Exam - Vital Signs Vital Signs: Vital Signs x48h Temp Pulse Pulse Pulse Resp BP Pulse Ox 12/01/19 12:00 97.9 F 80 18 133/81 H 99 12/01/19 11:48 79 15 12/01/19 10:39 90 24 121/90 H 96 12/01/19 07:23 97.5 F L 73 18 120/78 98 Results - Lab Results Fish Bones: 12/01/19 04:30 12/01/19 04:30 Other Lab Results: Lab Results x24hrs 12/01/19 12/01/19 Range/Units 04:30 04:30 WBC 16.6 H (4.8-10.8) x10^3/uL RBC 3.71 L (4.20-5.40) 10^6/uL Hgb 12.0 (12.0-16.0) g/dL Hct 33.8 L (37.0-47.0) % MCV 91.1 (81.0-99.0) fL MCH 32.3 H (27.0-31.0) pg MCHC 35.5 (32.0-36.0) g/dL RDW 13.2 (12.0-15.0) % Plt Count 360 (130-450) 10^3/uL MPV 10.0 (7.9-10.8) fL Neut # (Auto) 12.5 H (1.5-6.6) 10^3/uL Lymph # (Auto) 2.0 (1.5-3.5) 10^3/uL Phillips # (Auto) 2.0 H (0.0-1.0) 10^3/uL Eos # (Auto) 0.0 (0.0-0.7) 10^3/uL Baso # (Auto) 0.0 (0.0-0.1) 10^3/uL Absolute Nucleated RBC 0.00 x10^3/uL Nucleated RBC % 0.0 /100WBC Sodium 131 L (135-145) mmol/L Potassium 3.2 L (3.5-5.0) mmol/L Chloride 94 L (101-111) mmol/L Carbon Dioxide 26 (21-32) mmol/L Anion Gap 11.0 (6-13) BUN 7 (6-20) mg/dL Creatinine 0.5 (0.4-1.0) mg/dL Estimated GFR (MDRD) 125 (>89) Glucose 120 H (70-100) mg/dL Calcium 8.4 L (8.5-10.3) mg/dL Total Bilirubin 0.6 (0.2-1.0) mg/dL AST 35 (10-42) IU/L ALT 26 (10-60) IU/L Alkaline Phosphatase 67 (42-121) IU/L Total Protein 6.6 L (6.7-8.2) g/dL Albumin 3.0 L (3.2-5.5) g/dL Globulin 3.6 (2.1-4.2) g/dL Albumin/Globulin Ratio 0.8 L (1.0-2.2)
[2019-12-02] MEDS: oxyCODONE 5 MG TABLET PO PRN ×3 (00:18→12:15)
[2019-12-02] MEDS: GABAPENTIN 300 MG CAPSULE PO SCH (05:07)
[2019-12-02] MEDS: ACETAMINOPHEN 500 MG TABLET PO SCH ×2 (05:08→12:15)
[2019-12-02 05:09] LABS: CALCIUM 8.3 mg/dL (8.5-10.3); CREATININE 0.5 mg/dL (0.4-1.0)
[2019-12-02] MEDS: ENOXAPARIN 40 MG/0.4 ML SYRINGE SUBQ SCH (08:58)
[2019-12-02] MEDS: DOCUSATE SODIUM 100 MG CAPSULE PO SCH (08:58)
--- NOTE | 2019-12-02 12:08 | PROVIDER PROGRESS NOTE ---
Subjective - Prog Note Date Prog Note Date: 12/02/19 Prog Note Time: 12:06 - Subjective Subjective: Patient is doing well. Up and ambulating, tolerating po, pain well managed, voiding. No VB. No BM but + flatus. No N/V. Objective - Vital Signs/Intake & Output Vital Signs: Vital Signs x48h Temp Pulse Pulse Resp BP Pulse Ox 12/02/19 08:00 97.7 F 71 18 119/88 H 98 12/02/19 05:00 97.7 F 76 18 111/84 H 99 Intake & Output: Intake & Output 11/29/19 11/30/19 12/01/19 12/02/19 23:59 23:59 23:59 23:59 Intake Total 1638.34 3613.670 440 Output Total 650 700 Balance 988.34 2913.670 440 - Objective General Appearance: positive: No acute distress Neck: positive: Nml inspection Respiratory: positive: No respiratory distress, Breath sounds nml Cardiovascular: positive: Regular rate & rhythm Peripheral Pulses: 2+ Radial (R) Abdomen: positive: Other (appropriately tender, non-distended. Dressing removed and incision is CDI) Back: positive: Nml inspection Skin: positive: Color nml Extremities: positive: Non-tender, No pedal edema Neurologic/Psychiatric: positive: Oriented x3 - Lab Results Fish Bones: 12/01/19 04:30 12/02/19 04:30 Other Labs: Lab Results x24hrs 12/02/19 Range/Units 04:30 Sodium 133 L (135-145) mmol/L Potassium 3.5 (3.5-5.0) mmol/L Chloride 96 L (101-111) mmol/L Carbon Dioxide 30 (21-32) mmol/L Anion Gap 7.0 (6-13) BUN 5 L (6-20) mg/dL Creatinine 0.5 (0.4-1.0) mg/dL Estimated GFR (MDRD) 125 (>89) Glucose 87 (70-100) mg/dL Calcium 8.3 L (8.5-10.3) mg/dL Assessment/Plan - Problem List (1) Status post abdominal hysterectomy and left salpingo-oophorectomy Impression: POD#2 s/p NICHELLE/LSO Doing well Meeting goals for discharge DC to home Routine DC instructions given
--- NOTE | 2019-12-02 12:10 | DISCHARGE SUMMARY ---
"Discharge Summary Admit Date: 11/30/19 Discharge Date: 12/02/19 Discharging Provider: Flores Code Status: Attempt Resuscitation Condition at Discharge: Good - DIAGNOSES Admission Diagnoses: Recurrent SONY-2 Atrophic, surgically altered cervix Chronic hypokalemia Discharge Diagnoses with Status of Each Condition: Same and s/p total abdominal hysterectomy and left sided salpingo-oophorectomy - HPI History of Present Illness: Patient is a 64 yo female with history of recurrent advanced cervical dysplasia. She has undergone 2 cold knife cone procedures. She had requested hysterectomy to avoid the need for further conization procedures. However, her cervix had become small and stenotic due to multiple surgeries and could not accommodate the uterine manipulator necessary for TLH. As such, she opted to proceed with open abdominal hysterectomy and left sided salpingo-oophorectomy. Right tube and ovary are surgically absent. - CONSULTS | PROCEDURES Procedures: 11/30/19 Total abdominal hysterectomy and left sided salpingo-oophorectomy - HOSPITAL COURSE Hospital Course: Patient was admitted on 11/30/2019 for the planned total abdominal hysterectomy and left sided salpingo-oophorectomy. Procedure was well tolerated and without complication. Postoperative course was unremarkable. Patient has baseline hypokalemia and was repleted with 60 mEq oral KCl for a potassium of 3.2 mmol/L, with a rise to 3.5 mmol/L. By POD#2, patient was meeting all goals for discharge and was discharged to home with routine discharge instructions. Follow-up in one week for incision check. - ALLERGIES Allergies/Adverse Reactions: Allergies Allergy/AdvReac Type Severity Reaction Status Date / Time codeine AdvReac Nausea Verified 09/28/19 15:42 duloxetine AdvReac Anxiety Verified 10/04/19 10:16 ibuprofen AdvReac caused Verified 09/28/19 15:42 blood in urine - MEDICATIONS Home Medications: Ambulatory Orders Medication Instructions Recorded Confirmed Lisinopril [Prinivil] 10 mg PO DAILY 05/23/19 11/29/19 Ascorbic Acid [Vitamin C] 500 mg PO DAILY 09/28/19 11/29/19 Cholecalciferol [Vitamin D3] 2,000 unit PO DAILY 09/28/19 11/29/19 Multivitamin 1 each PO DAILY 09/28/19 11/29/19 Potassium Chloride 10 meq PO DAILY 09/28/19 11/29/19 Vitamin E 400 unit PO DAILY 09/28/19 11/29/19 Acetaminophen [Tylenol Extra 500 - 1,000 mg PO Q8H PRN #90 12/02/19 Strength] tablet Docusate Sodium 100 - 200 mg PO BID PRN #60 capsule 12/02/19 Gabapentin 300 mg PO Q8H #60 capsule 12/02/19 oxyCODONE [Roxicodone] 5 mg PO Q4H PRN #24 tablet 12/02/19 - LABS Result Diagrams: 12/01/19 04:30 12/02/19 04:30 - FOLLOW UP Follow Up: [address] Tanner - TIME SPENT Time Spent in Discharge (Minutes): 30"
[2019-12-02 12:30] VITALS: BP 108/74
== END 2019-12-02 12:38 | disposition home or self-care (01) | DRG 743 ==
LOC: MS3 06:22 → UNDOADMOB 06:22 → INTOOBSV 06:22 → MS3 11:07 → OBSVTOIN 12-01 09:16
PROVIDERS: ADMIT Obstetrics & Gynecology; ATTEND Obstetrics & Gynecology
PROC: 0UT10ZZ Resection of Left Ovary, Open Approach (ICD-10-PCS; 2019-11-30)
PROC: 0UT60ZZ Resection of Left Fallopian Tube, Open Approach (ICD-10-PCS; 2019-11-30)
PROC: 0UT90ZZ Resection of Uterus, Open Approach (ICD-10-PCS; principal; 2019-11-30 07:30)
DX: N87.1 Moderate cervical dysplasia (principal); N88.2 Stricture and stenosis of cervix uteri; I10 Essential (primary) hypertension; M54.9 Dorsalgia, unspecified; Z90.721 Acquired absence of ovaries, unilateral; Z90.79 Acquired absence of other genital organ(s); M48.061 Spinal stenosis, lumbar region without neurogenic claudication; G89.29 Other chronic pain; E87.6 Hypokalemia; N88.8 Other specified noninflammatory disorders of cervix uteri
CPT/HCPCS: 36415; 80048; 80053; 85025; 94640; A9270; G0378; J0131; J0690; J1170; J1650; J7120

== ENCOUNTER 2020-02-09 08:29 | Outpatient (CLI) | payer MEDICAID ==
--- NOTE | 2020-02-09 08:48 | XRAY Report ---
PROCEDURE: Shoulder 2 View LT INDICATIONS: SHOULDER PAIN,LEFT TECHNIQUE: 2 views of the shoulder were acquired. COMPARISON: None. FINDINGS: Bones: No fractures or dislocations. There are mild degenerative changes of the glenohumeral joint and acromioclavicular joint. No suspicious bony lesions. Visualized ribs appear intact. Soft tissues: No suspicious soft tissue calcifications. IMPRESSION: 1. No acute traumatic abnormality. 2. Mild degenerative changes of the glenohumeral joint and acromioclavicular joint. Reviewed by: Haroldo Garcia on 02/09/2020 8:46 AM PDT Approved by: Haroldo Garcia on 02/09/2020 8:46 AM PDT Station ID: [id number]
== END 2020-02-09 08:30 | disposition home or self-care (01) ==
LOC: DI 08:29
PROVIDERS: ATTEND Family Medicine
DX: M19.012 Primary osteoarthritis, left shoulder (principal)

== ENCOUNTER 2020-04-22 08:00 | Outpatient (CLI) | payer MEDICAID ==
[2020-04-22 12:10] LABS: BASOPHILS # (AUTO) 0.1 10^3/uL (0.0-0.1); EOSINOPHILS # (AUTO) 0.2 10^3/uL (0.0-0.7); EOSINOPHILS % (AUTO) 1.9 %; HGB - HEMOGLOBIN 14.5 g/dL (12.0-16.0); LYMPHOCYTES # (AUTO) 2.9 10^3/uL (1.5-3.5); LYMPHOCYTES % (AUTO) 26.9 %; MEAN CORPUSCULAR HEMOGLOBIN 31.8 pg (27.0-31.0); MEAN CORPUSCULAR HGB CONC 34.2 g/dL (32.0-36.0); MEAN PLATELET VOLUME 10.1 fL (7.9-10.8); MONOCYTES # (AUTO) 1.4 10^3/uL (0.0-1.0); MONOCYTES % (AUTO) 13.2 %; NEUTROPHILS % (AUTO) 56.3 %; PLT - PLATELET COUNT 384 10^3/uL (130-450); RED BLOOD COUNT 4.56 10^6/uL (4.20-5.40); RED CELL DISTRIBUTION WIDTH 13.8 % (12.0-15.0); WHITE BLOOD COUNT 10.7 x10^3/uL (4.8-10.8)
[2020-04-22 13:23] LABS: ALBUMIN 4.4 g/dL (3.2-5.5); ALBUMIN/GLOBULIN RATIO 1.3 (1.0-2.2); BILIRUBIN,TOTAL 1.5 mg/dL (0.2-1.0); CALCIUM 9.7 mg/dL (8.5-10.3); CREATININE 0.9 mg/dL (0.4-1.0); TOTAL PROTEIN 7.9 g/dL (6.7-8.2)
== END 2020-04-22 23:59 | disposition home or self-care (01) ==
LOC: LAB.WCP 08:00
PROVIDERS: ATTEND Nurse Practitioner
DX: I95.9 Hypotension, unspecified (principal); R94.5 Abnormal results of liver function studies; E87.6 Hypokalemia; I10 Essential (primary) hypertension
CPT/HCPCS: 36415; 80053; 85025

== ENCOUNTER 2020-06-18 00:39 | Outpatient (CLI) | payer MEDICAID | END 2020-06-18 00:40 | disposition left against medical advice (07) | LOC: EMS 00:39 | DX: F10.129 Alcohol abuse with intoxication, unspecified (principal) ==

== ENCOUNTER 2021-05-15 03:05 | Emergency (ER) | payer MEDICAID ==
--- NOTE | 2021-05-15 03:20 | ED Physician Documentation ---
History of Present Illness - Stated complaint Stated Complaint: SOA, SHOULDER PX/SPASIM - History obtained from History obtained from: Patient - History of Present Illness Timing: How many days ago (5-6) Pain level now: 4 Improved by: rest Worsened by: at times is exacerbated with movement though not reliably so - Additonal information Additional information: patient states been doing a lot of packing and moving, involving lifting heavy boxes and furniture. She has developed sharp upper back pain that radiates across the upper back but is most pronounced between my shoulder blades. There is a pleuritic component as well as some degree of exacerbation with movement though not reliably. She has chronic arthritic pains and low back pains but says she has not had upper back pain like this before Review of Systems Constitutional: reports: Reviewed and negative Cardiac: reports: Reviewed and negative Respiratory: reports: Reviewed and negative GI: reports: Reviewed and negative Musculoskeletal: reports: Back pain, Extremity swelling (subtle LLE swelling). 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 - Present Medications Home Medications: Ambulatory Orders Medication Instructions Recorded Confirmed Cyclobenzaprine [Flexeril] 10 mg PO TID PRN #20 tablet 05/15/21 HYDROcod/ACETAM 5/325 [[place] 5/325] 1 - 2 tablet PO Q6H PRN #14 tablet 05/15/21 - Allergies Allergies/Adverse Reactions: Allergies Allergy/AdvReac Type Severity Reaction Status Date / Time codeine AdvReac Nausea Verified 05/15/21 03:19 duloxetine AdvReac Anxiety Verified 05/15/21 03:19 ibuprofen AdvReac caused Verified 05/15/21 03:19 blood in urine - Social History Does the pt smoke?: No Smoking Status: Never smoker Does the pt drink ETOH?: Yes Does the pt have substance abuse?: No - Immunizations Immunizations are current?: Yes - POLST Patient has POLST: No PD ED PE NORMAL - Vitals Vital signs reviewed: Yes - General General: Alert and oriented X 3, No acute distress (mostly NAD but brief episodes of back pain during H+P), Well developed/nourished - Neck Neck: No bony TTP - Cardiac Cardiac: RRR, No murmur, No gallop, No rub - Respiratory Respiratory: No respiratory distress, Clear bilaterally - Abdomen Abdomen: Soft, Non tender - Back Back: No spinal TTP - Derm Derm: No rash - Extremities Extremities: No edema Results - Vitals Vitals: Oxygen O2 Source Room air - Labs Labs: Laboratory Tests 05/15/21 05/15/21 05/15/21 04:01 04:01 04:01 WBC 10.6 RBC 4.06 L Hgb 12.7 Hct 36.6 L MCV 90.1 MCH 31.3 H MCHC 34.7 RDW 14.6 Plt Count 253 MPV 9.0 Neut # (Auto) 5.8 Lymph # (Auto) 3.1 [place] # (Auto) 0.9 Eos # (Auto) 0.6 Baso # (Auto) 0.1 Absolute Nucleated RBC 0.00 Nucleated RBC % 0.0 D-Dimer 237.7 Sodium 140 Potassium 3.3 L Chloride 101 Carbon Dioxide 29 Anion Gap 10.0 BUN 13 Creatinine 0.6 Estimated GFR (MDRD) 101 Glucose 113 H Calcium 8.9 - Rads (name of study) CTA chest Radiology: Prelim report reviewed, See rad report PD MEDICAL DECISION MAKING - ED course Complexity details: reviewed results, re-evaluated patient, considered differential, d/w patient ED course: c/o upper back pain that has developed over the past week as she has been moving, involving lifting heavy objects/boxes. This would be most consistent with a musculoskeletal etiology (back strain/sprain). Given the pleuritic component and that there is not a clear reproduction of the pain with movement, realistic possibilities on differential diagnosis includes PE, aortic dissection. The former is made more concerning with her noting LLE swelling (this was only noted on ROS, and she is not confident there is any significant swelling; also, there is no obvious edema of either lower extremity on exam). The latter (dissection) is concerning given that the pain is between the s houlder blades and episodes seem to occur as much at rest as with movement or deep inspiration. D-dimer is not elevated. CTA chest does not evidence PE nor aortic dissection (nor any other concerning findings). Will presume thoracic strain/sprain, given toradol IM in ED, vicodin and flexeril take home (drove to ED) with prescriptions for same to her pharmacy. results d/w patient, return precautions also reviewed. I am prescribing a short course of short-acting opioid pain medication for this patient. I have reviewed the patients LAW REPORTER and no concerning findings were noted. I have discussed that the opioids are for short term therapy only, and will not be refilled from the ED Departure - Departure Disposition: Home, Self Care Clinical Impression: Back pain Qualifiers: Back pain location: thoracic back pain Chronicity: acute Back pain laterality: bilateral Qualified Code(s): M54.6 - Pain in thoracic spine Condition: Good Instructions: ED Neck Back Pain General Prescriptions: Cyclobenzaprine [Flexeril] 10 mg PO TID PRN #20 tablet PRN Reason: Spasms HYDROcod/ACETAM 5/325 [[place] 5/325] 1 - 2 tablet PO Q6H PRN #14 tablet PRN Reason: Pain Comments: Prescriptions for hydrocodone/acetaminophen (vicodin; pain medication) and cyclobenzaprine (flexeril; muscle relaxant) have been electronically submitted to [facility] pharmacy in [place]. I am prescribing a short course of narcotic pain medication for you. These are potentially dangerous and addictive medications that should be used carefully. These medications may constipate you. Take an gscl-yux-sdajaik stool softener (docusate) twice daily with plenty of water while taking these medications. If you go 24 hours without a bowel movement, take mebb-eeg-tqrnktm miralax, per package instructions. Do not drink or drive while taking these medications. If you received narcotic or sedating medications while in the emergency d epartment, do not drive for 24 hours. Store this medication in a safe, secure place and out of reach of children. It is a violation of federal law to give or sell this medication to another person or to use in a manner other than prescribed. The ED will not refill narcotic prescriptions, including prescriptions lost or stolen. To dispose of unwanted medications: 1. [facility] at [address] in [place] has a medication drop box. They accept prescription medications (in pill form) Wednesday through Wednesday 9:00 a.m. to 5:00 p.m. 2. The [facility] accepts prescription medications (in pill form only) for disposal year round. Call for more information. 3. Contact the [facility] for the next [facility] sponsored prescription drug collection event. , [phone], or [phone]; Discharge Date/Time: 05/15/21 06:19
[2021-05-15] MEDS ORDERED: KETOROLAC 30 MG/ML VIAL IVP STA (03:53)
[2021-05-15 04:08] LABS: BASOPHILS # (AUTO) 0.1 10^3/uL (0.0-0.1); BASOPHILS % (AUTO) 0.9 %; EOSINOPHILS # (AUTO) 0.6 10^3/uL (0.0-0.7); EOSINOPHILS % (AUTO) 6.1 %; HCT - HEMATOCRIT 36.6 % (37.0-47.0); HGB - HEMOGLOBIN 12.7 g/dL (12.0-16.0); LYMPHOCYTES # (AUTO) 3.1 10^3/uL (1.5-3.5); LYMPHOCYTES % (AUTO) 29.3 %; MEAN CORPUSCULAR HEMOGLOBIN 31.3 pg (27.0-31.0); MEAN CORPUSCULAR HGB CONC 34.7 g/dL (32.0-36.0); MEAN CORPUSCULAR VOLUME 90.1 fL (81.0-99.0); MONOCYTES # (AUTO) 0.9 10^3/uL (0.0-1.0); MONOCYTES % (AUTO) 8.2 %; NEUTROPHILS # (AUTO) 5.8 10^3/uL (1.5-6.6); PLT - PLATELET COUNT 253 10^3/uL (130-450); RED BLOOD COUNT 4.06 10^6/uL (4.20-5.40); RED CELL DISTRIBUTION WIDTH 14.6 % (12.0-15.0); WHITE BLOOD COUNT 10.6 x10^3/uL (4.8-10.8)
[2021-05-15 04:15] LABS: CALCIUM 8.9 mg/dL (8.5-10.3); CREATININE 0.6 mg/dL (0.4-1.0); POTASSIUM 3.3 mmol/L (3.5-5.0)
[2021-05-15 04:42] VITALS: BP 149/97
[2021-05-15] MEDS ORDERED: iohexoL-300 100 ML VIAL ONE (04:54)
[2021-05-15] MEDS ORDERED: iohexoL-300 100 ML VIAL IVP ONE (05:20)
[2021-05-15] MEDS ORDERED: CYCLOBENZAPRINE 10 MG Prepack 2 PO STA (06:00)
[2021-05-15] MEDS ORDERED: HYDROcod/ACET 5/325 Prepack 4 PO STA (06:00)
--- NOTE | 2021-05-15 08:37 | CT Report ---
PROCEDURE: ANGIO CHEST W/WO INDICATIONS: tearing pain across upper back CONTRAST: IV CONTRAST: Isovue 300 ml: 80 PO CONTRAST: *NO PO CONTRAST TECHNIQUE: Precontrast 3 mm thick sections acquired from the lung apices through the diaphragms. After the admi nistration of intravenous contrast, 3 mm thick sections again acquired from the lung apices through t he diaphragms. 3 mm oblique sagittal and coronal reformats were then acquired. For radiation dose re duction, the following was used: automated exposure control, adjustment of mA and/or kV according to patient size. COMPARISON: CT abdomen pelvis 08/21/2018. FINDINGS: Image quality: Excellent. AORTA: The thoracic aorta is normal in caliber and contour. No intimal flaps identified to suggest ao rtic dissection. No aortic contour irregularities to suggest acute aortic injury. No periaortic hemat omas. There is conventional branching of the aortic arch. The visualized great vessels are normal in caliber and appear patent. The celiac, superior mesenteric, and origin of the inferior mesenteric art eries appear patent where visualized. There are bilateral single accessory renal arteries. The renal arteries appear patent. CHEST: Lungs and pleura: There is mild dependent atelectasis bilaterally. No acute consolidation. No pleural effusions or pneumothorax. Central and peripheral airways are patent and normal in caliber. Mediastinum: Heart size is normal. No pericardial effusion. The pulmonary arteries demonstrate no filling defects to suggest pulmonary embolism to the level of the proximal subsegmental pulmonary art eries. There is suboptimal contrast opacification of the subsegmental pulmonary arteries. No mediasti nal or hilar adenopathy by size criteria. Esophagus is normal in caliber. There is a small hiatal he rnia. Bones and chest wall: No axillary adenopathy by size criteria. The visualized thyroid is heterogene ous in appearance without focal dominant nodule identified. No suspicious bony lesions. No vertebral body compression fractures. ABDOMEN: The visualized upper abdomen demonstrates no hepatic mass lesions. Gallbladder is nondisten ded without calcified gallstones. Spleen is normal in size. No adrenal nodules. The partially visuali zed kidneys demonstrate no hydronephrosis. Visualized bowel loops appear normal in caliber. IMPRESSION: 1. No evidence of aortic dissection. 2. No evidence of central pulmonary embolism. 3. No acute airspace consolidation. Concordant with preliminary report. Reviewed by: Rio Christian MD on 05/15/2021 8:35 AM PST Approved by: Rio Christian MD on 05/15/2021 8:35 AM PST Station ID: [id number]
== END 2021-05-15 06:19 | disposition home or self-care (01) ==
LOC: ED 03:05
DX: M54.6 Pain in thoracic spine (principal)
CPT/HCPCS: 36415; 71275; 80048; 85025; 85379; 96374; 99284; Q9967

== ENCOUNTER 2021-12-18 06:28 | Outpatient (CLI) | payer MEDICAID, MEDICARE ==
[2021-12-18 08:48] LABS: BASOPHILS # (AUTO) 0.1 10^3/uL (0.0-0.1); BASOPHILS % (AUTO) 0.5 %; EOSINOPHILS # (AUTO) 0.3 10^3/uL (0.0-0.7); EOSINOPHILS % (AUTO) 2.8 %; HCT - HEMATOCRIT 38.9 % (37.0-47.0); HGB - HEMOGLOBIN 13.6 g/dL (12.0-16.0); LYMPHOCYTES # (AUTO) 2.4 10^3/uL (1.5-3.5); MEAN CORPUSCULAR HEMOGLOBIN 31.9 pg (27.0-31.0); MEAN CORPUSCULAR VOLUME 91.1 fL (81.0-99.0); MEAN PLATELET VOLUME 9.3 fL (7.9-10.8); MONOCYTES # (AUTO) 0.9 10^3/uL (0.0-1.0); MONOCYTES % (AUTO) 7.7 %; NEUTROPHILS # (AUTO) 7.8 10^3/uL (1.5-6.6); NEUTROPHILS % (AUTO) 67.7 %; PLT - PLATELET COUNT 383 10^3/uL (130-450); RED BLOOD COUNT 4.27 10^6/uL (4.20-5.40); RED CELL DISTRIBUTION WIDTH 13.4 % (12.0-15.0); WHITE BLOOD COUNT 11.5 x10^3/uL (4.8-10.8)
[2021-12-18 09:32] LABS: ALBUMIN 4.5 g/dL (3.2-5.5); ALBUMIN/GLOBULIN RATIO 1.2 (1.0-2.2); ALKALINE PHOSPHATASE 84 IU/L (42-121); ALT ALANINE AMINOTRANSFERASE 34 IU/L (10-60); AST ASPARTATE AMINOTRANSFERASE 21 IU/L (10-42); BILIRUBIN,TOTAL 0.4 mg/dL (0.2-1.0); BUN - BLOOD UREA NITROGEN 57 mg/dL (6-20); CARBON DIOXIDE - CO2 23 mmol/L (21-32); CHLORIDE 105 mmol/L (101-111); CHOL/HDL RATIO 7.2 (<4.4); CHOLESTEROL 223 mg/dL; CREATININE 1.2 mg/dL (0.4-1.0); GAMMA GLUTAMYL TRANSPEPTIDASE 147 IU/L (8-38); GFR - MDRD 45 (>89); GLUCOSE 137 mg/dL (70-100); HDL CHOLESTEROL 31 mg/dL; LDL CHOLESTEROL,CALCULATED 139 mg/dL; LDL/HDL RATIO 4.5 (<4.4); SODIUM 138 mmol/L (135-145); TOTAL PROTEIN 8.2 g/dL (6.7-8.2); TRIGLYCERIDES 267 mg/dL; URIC ACID 13.6 mg/dL (2.6-7.2); VLDL CHOLESTEROL 53 mg/dL
[2021-12-18 09:40] LABS: THYROID STIMULATING HORMONE 1.22 uIU/mL (0.34-5.60)
--- NOTE | 2021-12-18 11:35 | DEXA Report ---
PROCEDURE: Dexa Spine and/or Hip INDICATIONS: ELEVATED LIVER ENZYMES, POST MENOPAUSAL TECHNIQUE: Dual energy x-ray absorptiometry (DXA) was performed on a Applico System. Regions measur ed are the AP Spine, femoral neck, and if needed forearm. COMPARISON: 09/17/2017 FINDINGS: Lumbar Spine: Bone Mineral Density 0.959 g/cm/cm,T score -1.8, osteopenia Left Hip: Bone Mineral Density 0.683 g/cm/cm,T score -2.6, osteoporosis Left Femoral Neck: Bone Mineral Density 0.661 g/cm/cm, T score -2.7, osteoporosis (T score greater or equal to -1.0: NORMAL) (T score from -1.1 to -2.4: OSTEOPENIA) (T score less than or equal to -2.5 to: OSTEOPOROSIS) Impression: Osteoporosis. Patient is at high risk for fracture. Of note, bone mineral density of the left hip has decreased 8.8% since the prior study. Patients with diagnosis of osteoporosis or osteopenia should have regular bone mineral density assess ment. For those eligible for Medicare, routine testing is allowed once every 2 years. Testing frequ ency can be increased for patients who have rapidly progressing disease or for those who are receivin g medical therapy to restore bone mass. Reviewed by: Celso Moya MD on 12/18/2021 11:34 AM PDT Approved by: Celso oMya MD on 12/18/2021 11:34 AM PDT Station ID: [id number]
--- NOTE | 2021-12-18 13:13 | Ultrasound Report ---
PROCEDURE: Abdomen Limited INDICATIONS: ELEVATED LIVER ENZYMES, POST MENOPAUSAL TECHNIQUE: Real-time focused scanning was performed of the right upper quadrant, with image documentation. COMPARISON: CT chest angiogram 05/15/2021. CT abdomen pelvis 08/21/2018. FINDINGS: Liver: Normal size measuring 14.1 cm. Heterogeneous echotexture. Portal vein demonstrates hepatopedal flow. Gallbladder: Gallbladder is nondistended. No stones or sludge. No gallbladder wall thickening. No per icholecystic fluid. Negative sonographic Romero sign. Biliary ducts: Intrahepatic bile ducts are non-dilated. Extrahepatic bile duct caliber measures 6.4 mm. Normal is 6-7 mm or less in diameter, or 10 mm or less post-cholecystectomy. Pancreas: Visualized portions of the pancreas are sonographically normal. Tail not seen. Right kidney: Right kidney measures 10.5 cm long; cortex 1.4 cm. No hydronephrosis or nephrolithias is. No solid masses. IMPRESSION: 1. Increased echogenicity of the hepatic parenchyma. This is most commonly seen in hepatic steatosis. Other forms of hepatocellular disease could have a similar appearance. 2. No acute cholecystitis. No gallstones. Reviewed by: Eugenio Gamez MD on 12/18/2021 1:12 PM PDT Approved by: Eugenio Gamez MD on 12/18/2021 1:12 PM PDT Station ID: [id number]
== END 2021-12-18 06:29 | disposition home or self-care (01) ==
LOC: DI 06:28
PROVIDERS: ATTEND Nurse Practitioner
DX: R74.8 Abnormal levels of other serum enzymes (principal); M81.0 Age-related osteoporosis without current pathological fracture; I10 Essential (primary) hypertension; Z78.0 Asymptomatic menopausal state; Z13.220 Encounter for screening for lipoid disorders; Z51.81 Encounter for therapeutic drug level monitoring; E79.0 Hyperuricemia without signs of inflammatory arthritis and tophaceous disease
CPT/HCPCS: 36415; 80053; 80061; 82977; 83721; 84443; 84550; 85025

== ENCOUNTER 2021-12-18 06:30 | Outpatient (CLI) | payer MEDICARE ==
--- NOTE | 2021-12-19 10:14 | Ultrasound Report ---
LIMITED ULTRASOUND OF RIGHT BREAST: 12/18/2021 CLINICAL: Patient returns today to evaluate a focal asymmetry in the right breast. Comparison is made to exams dated: 12/18/2021 mammogram, 11/27/2021 mammogram, 11/08/2018 mammogram, 10/17 mammogram, 09/17/2017 mammogram, and 12/27/2015 mammogram - [facility]. Color flow ultrasound of the right breast 6 o'clock, and retroareolar regions was performed on the ar eas of interest. Goldman scale images of the real-time examination were reviewed. There is a cluster of two oval simple cysts in the right breast at 6 o'clock middle depth. This clus ter of oval simple cysts is hypoechoic with a well-defined boundary, internal echoes, and posterior a coustic enhancement. This correlates with mammography findings. Color flow imaging demonstrates andrei t there is no vascularity present. IMPRESSION: BENIGN There is no sonographic evidence of malignancy. The cluster of oval simple cysts in the right breast is benign. A 1 year screening mammogram is recommended. This exam was interpreted at Station ID: [id number]. Electronically Signed By: Lina Swenson M.D. lk/:12/18/2021 13:53:54 Ultrasound BI-RADS: 2 Benign BI-RADS CATEGORY: (2) - 2 RECOMMENDATION: (ANNUAL) - Recommend routine annual screening mammography. [id number] 1 year screening LATERALITY: (B)
--- NOTE | 2021-12-19 10:14 | Mammography Report ---
UNILATERAL RIGHT DIGITAL DIAGNOSTIC MAMMOGRAM 3D/2D: 12/18/2021 CLINICAL: Patient returns today to evaluate a focal asymmetry in the right breast. Comparison is made to exams dated: 11/27/2021 mammogram, 11/08/2018 mammogram, 11/04/2017 mammogram, 09/17/2017 mammogram, and 12/27/2015 mammogram - [facility]. The right breast is heterogeneously dense, which may obscure small masses (category c / 51-75% gland ular tissue). The focal asymmetry in the right breast at 5 o'clock posterior depth is seen in additional views. No other significant masses or calcifications are seen in the breast. IMPRESSION: INCOMPLETE: NEEDS ADDITIONAL IMAGING EVALUATION The focal asymmetry in the right breast is indeterminate. A targeted ultrasound of the right breast is recommended and will be performed immediately following this exam. This exam was interpreted at Station ID: [id number]. NOTE: For mammograms, a report in lay terms will be sent to the patient. Approximately 15% of breast malignancies will not be visualized mammographically. In the management of a palpable breast mass, a negative mammogram must not discourage biopsy of a clinically suspicious lesion. Electronically Signed By: Lina Swenson M.D. lk/:12/18/2021 08:53:37 ACR BI-RADS Category 0: Incomplete 3340F PARENCHYMAL PATTERN: (D) - The breast(s) demonstrate(s) heterogeneously dense fibroglandular pardarleney janel. BI-RADS CATEGORY: (0) - 0 Ultrasound [id number] Immediate follow-up LATERALITY: (B)
== END 2021-12-18 06:31 | disposition home or self-care (01) ==
LOC: DI 06:30
PROVIDERS: ATTEND Nurse Practitioner
DX: N60.11 Diffuse cystic mastopathy of right breast (principal)

== ENCOUNTER 2022-03-27 12:22 | Outpatient (CLI) | payer MEDICARE, MEDICAID ==
[2022-03-27 18:50] LABS: THYROID STIMULATING HORMONE 2.97 uIU/mL (0.34-5.60)
[2022-03-27 18:55] LABS: % IRON SATURATION 38 % (20-50); CHOL/HDL RATIO 4.1 (<4.4); CHOLESTEROL 227 mg/dL; HDL CHOLESTEROL 56 mg/dL; IRON 145 ug/dL (28-170); LDL CHOLESTEROL,CALCULATED 131 mg/dL; LDL/HDL RATIO 2.3 (<4.4); TOTAL IRON BINDING CAPACITY 384 ug/dL (250-450); TRANSFERRIN 274 mg/dL (192-382); TRIGLYCERIDES 200 mg/dL; VLDL CHOLESTEROL 40 mg/dL
[2022-03-27 21:15] LABS: ESTIMATED AVERAGE GLUCOSE 97 mg/dL (70-100)
== END 2022-03-27 12:23 | disposition home or self-care (01) ==
LOC: LAB.N 12:22
PROVIDERS: ATTEND Nurse Practitioner
DX: R00.0 Tachycardia, unspecified (principal); Z13.220 Encounter for screening for lipoid disorders; E11.9 Type 2 diabetes mellitus without complications; G25.81 Restless legs syndrome
CPT/HCPCS: 36415; 80061; 83036; 83540; 83721; 84443; 84466

== ENCOUNTER 2022-08-10 11:39 | Emergency (ER) | payer MEDICARE, MEDICAID ==
[2022-08-10 11:51] VITALS: BP 136/96
--- NOTE | 2022-08-10 12:24 | ED Physician Documentation ---
PD HPI LOWER EXT INJURY - Stated complaint Stated Complaint: R FOOT PX - Chief complaint Chief Complaint: Ext Problem - History obtained from History obtained from: Patient - Additional information Additional information: 66-year-old woman with multiple areas of chronic arthritis pain and back pain presents with atraumatic right foot pain for the last week. Pain is focused in the first through third metatarsal areas. There is no fever or chills with this. It does not necessarily feel like prior episodes of arthritis. 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 - Present Medications Home Medications: Ambulatory Orders Medication Instructions Recorded Confirmed Alendronate Sodium 70 mg PO Q7D 02/09/22 02/09/22 Lisinopril/Hydrochlorothiazide 1 each PO QDBREAKFAST 02/09/22 02/09/22 [Zestoretic 20-12.5 mg Tablet] metFORMIN [Glucophage] 500 mg PO QDDINNER 02/09/22 02/09/22 HYDROcod/ACETAM 5/325 [[place] 5/325] 1 - 2 tab PO Q6H PRN #10 tablet 08/10/22 Meloxicam [Mobic] 7.5 mg PO BID PRN #20 tablet 08/10/22 - Allergies Allergies/Adverse Reactions: Allergies Allergy/AdvReac Type Severity Reaction Status Date / Time codeine AdvReac Nausea Verified 08/10/22 11:52 ibuprofen AdvReac caused Verified 08/10/22 11:52 blood in urine - Social History Does the pt smoke?: No Smoking Status: Never smoker Does the pt drink ETOH?: Yes Does the pt have substance abuse?: No - Immunizations Immunizations are current?: Yes - POLST Patient has POLST: No PD ED PE NORMAL - Vitals Vital signs reviewed: Yes - General General: Alert and oriented X 3, No acute distress - Extremities Extremities: Other (She has tenderness focused over the first and second metatarsals kind of distally with some swelling in that area. There is no warmth or redness. Range of motion of the first and second toes is painful. Pain seems to diffuse for gout.) - Neuro Neuro: Alert and oriented X 3, Normal speech Results - Vitals Vitals: Vital Signs - 24 hr 08/10/22 11:48 Temperature 36.0 C L Heart Rate 82 Respiratory 20 Rate Blood Pressure 136/96 H O2 Saturation 99 Oxygen O2 Source Room air - Rads (name of study) Three-view x-ray of the right foot is unremarkable Relevant Findings:: Final report received, EMP independent interpretation of test PD Medical Decision Making - ED course ED course: 66-year-old woman with atraumatic right foot pain especially on the extensor surface of the medial midfoot. This would be consistent with an extensor tendinitis. Gout is considered but it is not localized to the first MTP and there is no warmth or redness there. She is placed in a walking boot. She would very much like something stronger for pain, she has been taking nigw-aha-easkmvx medications at home. Review of the chart shows a history of alcohol-related emergency department visits and this was discussed frankly with the patient, she says she is no longer drinking and feels safe with a small number of pain medications. Departure - Departure Disposition: 01 Home, Self Care Clinical Impression: Right foot pain Condition: Good Record reviewed to determine appropriate education?: Yes Instructions: Tendinitis Foot Prescriptions: Meloxicam [Mobic] 7.5 mg PO BID PRN #20 tablet PRN Reason: Pain HYDROcod/ACETAM 5/325 [[place] 5/325] 1 - 2 tab PO Q6H PRN #10 tablet PRN Reason: Pain Comments: As discussed, this seems most consistent with an extensor tendinopathy of your foot. Elevate, general rest and ice would be appropriate. I have considered gout but the pain seems to diffuse for that and it is not associated with any redness at the typical joints that gout is associated with. I am prescribing some pain medications and anti-inflammatories. You can pick those up at [facility] where I sent them to. It is reasonable to follow-up with a senior director insight such as: Keyshawn Ceron, [employer] Supervisor in [place], [place] Address: [address] [place] [id number] I am prescribing a short course of narcotic pain medication for you. These are potentially dangerous and addictive medications that should be used carefully. These medications may constipate you. Take an iflj-ckw-ovdhidz stool softener (docusate) twice daily with plenty of water while taking these medications. If you go 24 hours without a bowel movement, take ffkw-uwp-fmprzdo miralax, per package instructions. Do not drink or drive while taking these medications. If you received narcotic or sedating medications while in the emergency department, do not drive for 24 hours. Store this medication in a safe, secure place and out of reach of children. It is a violation of federal law to give or sell this medication to another person or to use in a manner other than prescribed. The ED will not refill narcotic prescriptions, including prescriptions lost or stolen. To dispose of unwanted medications: 1. [facility] at [address] in [place] has a medication drop box. They accept prescription medications (in pill form) Wednesday through Wednesday 9:00 a.m. to 5:00 p.m. 2. The [facility] accepts prescription medications (in pill form only) for disposal year round. Call for more information. 3. Contact the [facility] for the next [facility] sponsored prescription drug collection event. , [phone], or [phone]; Note that many narcotic pain relievers also contain Tylenol/acetaminophen. Please ensure that your total dose of acetaminophen from all sources does not exceed 3 g (3000 mg) per day. Discharge Date/Time: 08/10/22 13:00
--- NOTE | 2022-08-10 13:12 | XRAY Report ---
PROCEDURE: Foot 3 View RT INDICATIONS: Acute lateral aspect pain, no trauma. TECHNIQUE: 3 views of the foot were acquired. COMPARISON: None. FINDINGS: Bones: No fractures or dislocations. No suspicious bony lesions. Soft tissues: No suspicious soft tissue calcifications or masses. IMPRESSION: No acute bony abnormality. If pain persists with conservative management, consider repeat radiographs in 10-14 days or cross-sectional imaging. Reviewed by: Brian Mcgee on 08/10/2022 1:11 PM PDT Approved by: Brian Mcgee on 08/10/2022 1:11 PM PDT Station ID: [id number]
== END 2022-08-10 13:00 | disposition home or self-care (01) ==
LOC: ED 11:39
DX: M79.671 Pain in right foot (principal); I10 Essential (primary) hypertension; E11.9 Type 2 diabetes mellitus without complications; Z79.899 Other long term (current) drug therapy; Z79.84 Long term (current) use of oral hypoglycemic drugs
CPT/HCPCS: 99283; 99284

== ENCOUNTER 2023-06-01 08:49 | Outpatient (CLI) | payer MEDICARE, MEDICAID ==
--- NOTE | 2023-06-02 09:20 | Mammography Report ---
BILATERAL DIGITAL SCREENING MAMMOGRAM 3D/2D: 06/01/2023 CLINICAL: Routine screening. Family history of breast cancer. Comparison is made to exams dated: 12/18/2021 ultrasound, 12/18/2021 mammogram, 11/27/2021 mammogram, 10/18 mammogram, 11/04/2017 mammogram, and 09/17/2017 mammogram - [facility]. There are scattered areas of fibroglandular density in both breasts (category b / 25%-50% glandular t issue). There are benign calcifications in the right breast. There also are benign vascular calcifications i n the left breast. No significant masses, calcifications, or other findings are seen in either breast. There has been no significant interval change. IMPRESSION: BENIGN There is no mammographic evidence of malignancy. A 1 year screening mammogram is recommended. Based on the Tyrer Cuzick model (a risk assessment model) the patient's lifetime risk is 10.1% and he r 10 year risk is 5.1%. According to the ACR, ACS, and NCCN guidelines, an annual breast MRI exam adali ng with mammogram is recommended if the patient's lifetime risk is 20% or greater. This exam was interpreted at Station ID: [id number]. NOTE: For mammograms, a report in lay terms will be sent to the patient. Approximately 15% of breast malignancies will not be visualized mammographically. In the management of a palpable breast mass, a negative mammogram must not discourage biopsy of a clinically suspicious lesion. Electronically Signed By: Lina cesar/kassandra:06/01/2023 10:32:27 letter sent: No_Letter ACR BI-RADS Category 2: Benign Finding(s) 3342F PARENCHYMAL PATTERN: (A) - The breast(s) demonstrate(s) scattered fibroglandular densities. BI-RADS CATEGORY: (2) - 2 Mammogram [id number] 1 year screening LATERALITY: (B)
== END 2023-06-01 08:50 | disposition home or self-care (01) ==
LOC: DI.N 08:49
DX: Z12.31 Encounter for screening mammogram for malignant neoplasm of breast (principal); Z80.3 Family history of malignant neoplasm of breast; R92.323 Mammographic fibroglandular density, bilateral breasts; R92.1 Mammographic calcification found on diagnostic imaging of breast

== ENCOUNTER 2023-07-30 10:43 | Outpatient (CLI) | payer MEDICARE, MEDICAID ==
[2023-07-30 18:16] LABS: BASOPHILS # (AUTO) 0.1 10^3/uL (0.0-0.1); BASOPHILS % (AUTO) 1.1 %; EOSINOPHILS # (AUTO) 0.6 10^3/uL (0.0-0.7); EOSINOPHILS % (AUTO) 6.8 %; HCT - HEMATOCRIT 44.2 % (37.0-47.0); HGB - HEMOGLOBIN 14.9 g/dL (12.0-16.0); LYMPHOCYTES # (AUTO) 2.6 10^3/uL (1.5-3.5); LYMPHOCYTES % (AUTO) 30.8 %; MEAN CORPUSCULAR HEMOGLOBIN 31.4 pg (27.0-31.0); MEAN CORPUSCULAR HGB CONC 33.7 g/dL (32.0-36.0); MEAN CORPUSCULAR VOLUME 93.2 fL (81.0-99.0); MEAN PLATELET VOLUME 9.2 fL (7.9-10.8); MONOCYTES # (AUTO) 0.7 10^3/uL (0.0-1.0); MONOCYTES % (AUTO) 8.9 %; NEUTROPHILS # (AUTO) 4.4 10^3/uL (1.5-6.6); PLT - PLATELET COUNT 332 10^3/uL (130-450); RED BLOOD COUNT 4.74 10^6/uL (4.20-5.40); RED CELL DISTRIBUTION WIDTH 14.5 % (12.0-15.0); WHITE BLOOD COUNT 8.4 x10^3/uL (4.8-10.8)
[2023-07-30 18:28] LABS: ALBUMIN 4.1 g/dL (3.2-5.5); ALBUMIN/GLOBULIN RATIO 1.4 (1.0-2.2); ALKALINE PHOSPHATASE 56 IU/L (42-121); ALT ALANINE AMINOTRANSFERASE 14 IU/L (10-60); AST ASPARTATE AMINOTRANSFERASE 16 IU/L (10-42); BILIRUBIN,TOTAL 0.6 mg/dL (0.2-1.0); BUN - BLOOD UREA NITROGEN 18 mg/dL (6-20); CALCIUM 9.9 mg/dL (8.5-10.3); CARBON DIOXIDE - CO2 27 mmol/L (21-32); CHLORIDE 104 mmol/L (101-111); CHOL/HDL RATIO 3.6 (<4.4); CHOLESTEROL 167 mg/dL; CREATININE 0.8 mg/dL (0.6-1.3); GFR - MDRD 72 (>89); GLUCOSE 97 mg/dL (74-104); HDL CHOLESTEROL 47 mg/dL; LDL CHOLESTEROL,CALCULATED 88 mg/dL; LDL/HDL RATIO 1.9 (<4.4); POTASSIUM 3.9 mmol/L (3.5-4.5); SODIUM 138 mmol/L (135-145); TOTAL PROTEIN 7.1 g/dL (6.4-8.9); TRIGLYCERIDES 159 mg/dL (48-352); VLDL CHOLESTEROL 32 mg/dL
[2023-07-30 18:45] LABS: FERRITIN 63.4 ng/mL (11.0-306.8)
[2023-07-30 20:44] LABS: ESTIMATED AVERAGE GLUCOSE 94 mg/dL (70-100); HEMOGLOBIN A1c% 4.9 % (4.27-6.07)
== END 2023-07-30 10:44 | disposition home or self-care (01) ==
LOC: LAB.N 10:43
PROVIDERS: ATTEND Family Medicine
DX: Q60.0 Renal agenesis, unilateral (principal); I10 Essential (primary) hypertension; M19.90 Unspecified osteoarthritis, unspecified site; G25.81 Restless legs syndrome; Z79.899 Other long term (current) drug therapy
CPT/HCPCS: 36415; 80053; 80061; 82728; 83036; 83721; 84443; 85025

== ENCOUNTER 2023-08-31 07:27 | Day surgery (SDC) | payer MEDICARE, MEDICAID ==
[~2023-08-31 07:27] MED LIST changes: -ACETAMINOPHEN 1,000 MG/100 ML 100 ML IV ONE; -CEFAZOLIN SODIUM IN 0.9 % NACL 2 GM/100 ML BAG IV ONE; -CELECOXIB 100 MG CAPSULE PO ONE; -GABAPENTIN 400 MG CAPSULE ONE; -LACTATED RINGERS 1,000 ML IV ONE; -PHENAZOPYRIDINE 100 MG TABLET PO ONE; +ceFAZolin 2 GM VIAL ONE; +metroNIDAZOLE 500 MG/100 ML 500 MG/100 ML BAG ONE
[2023-08-31] MEDS ORDERED: METHYLENE BLUE 0.5% 50 MG/10 ML AMPULE ONE (07:41)
[2023-08-31] MEDS ORDERED: ESTROGENS, CONJUGATED CREAM 30 GM TUBE ONE (07:42)
[2023-08-31] MEDS ORDERED: BUPIVACAINE 0.25% PF 30 ML VIAL ONE (07:42)
[2023-08-31] MEDS: LACTATED RINGERS 1,000 ML IV ONE ×2 (07:52→09:55)
[2023-08-31] MEDS ORDERED: MIDAZOLAM 2 MG/2 ML VIAL ONE (08:04)
[2023-08-31] MEDS ORDERED: fentaNYL 100 MCG/2 ML VIAL ONE (08:05)
[2023-08-31] MEDS ORDERED: LIDOCAINE-PF 2% 10 ML AMP SUBQ ONE (08:05)
[2023-08-31] MEDS ORDERED: PROPOFOL 200 MG/20 ML VIAL IVP ONE (08:05)
[2023-08-31] MEDS: GABAPENTIN 100 MG CAPSULE ONE (08:06)
[2023-08-31] MEDS: GABAPENTIN 400 MG CAPSULE ONE (08:06)
[2023-08-31] MEDS: ACETAMINOPHEN 325 MG TABLET PO ONE (08:06)
--- NOTE | 2023-08-31 08:15 | ANESTHESIA ---
Pre-Anesthesia VS, & Labs - Diagnosis VAIN2 - Procedure partial vaginectomy Vital Signs: Temp Pulse Resp BP Pulse Ox O2 Flow Rate 36.1 C L 96 20 125/97 H 96 08/31/23 07:53 08/31/23 07:53 08/31/23 07:53 08/31/23 07:53 08/31/23 07:53 Height: 5 ft 7 in Weight (kg): 71.4 kg Body Mass Index: 24.6 BMI Classification: Normal - NPO >8 hours - Is Patient ?: No - Lab Results Lab results reviewed: Yes Home Medications and Allergies Home Medications: Ambulatory Orders Albuterol Sulf [Ventolin Hfa Inhaler] 2 puffs PO Q4HR PRN 08/24/23 Lisinopril/Hydrochlorothiazide [Zestoretic 20-12.5 mg Tablet] 1 tab PO DAILY 08/24/23 Trazodone HCl 100 mg PO DAILY 08/24/23 Albuterol Sulf [Ventolin Hfa Inhaler] 2 puffs PO Q4HR PRN 08/24/23 Lisinopril/Hydrochlorothiazide [Zestoretic 20-12.5 mg Tablet] 1 tab PO DAILY 08/24/23 Trazodone HCl 100 mg PO DAILY 08/24/23 Allergies/Adverse Reactions: Allergies Allergy/AdvReac Type Severity Reaction Status Date / Time codeine AdvReac Nausea Verified 08/31/23 06:54 ibuprofen AdvReac caused Verified 08/31/23 06:54 blood in urine Anes History & Medical History - Anesthetic History Anesthesia Complications: reports: No previous complications Family history of Anesthesia Complications: Denies Family history of Malignant Hyperthermia: Denies - Medical History Cardiovascular: reports: Hypertension, Arrhythmia Pulmonary: reports: Other Gastrointestinal: reports: None Urinary: reports: Chronic bladder infection, Other (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) Neuro: reports: None Musculoskeletal: reports: Osteoarthritis, Osteoporosis, Chronic back pain, Other Endocrine/Autoimmune: Blood Disorders: reports: None Skin: reports: None Smoking Status: Never smoker - Surgical History Gynecologic: reports: Hysterectomy, Oophrectomy, LEEP (Cervical surgery), Other Exam General: Alert, Oriented x3, Cooperative Dental: WNL Mouth Openin Fingerbreadth Neck Mobility: Normal Mallampati classification: II Thyromental Distance: 4-6 cm Respiratory: Lungs clear, Normal breath sounds, No respiratory distress Cardiovascular: Regular rate Neurological: Normal speech Mental/Cognitive Status: Alert/Oriented X3, Normal for patient Cognitive Status: Within normal limits Plan Anesthesia Type: General Consent for Procedure(s) Verified and Reviewed: Yes Code Status: Attempt Resuscitation ASA classification: 2-Mild systemic disease Is this case an emergency?: No
[2023-08-31] MEDS ORDERED: METOCLOPRAMIDE 10 MG/2 ML VIAL IVP PRN (08:17)
[2023-08-31] MEDS ORDERED: ONDANSETRON 4 MG/2 ML VIAL IVP PRN (08:17)
[2023-08-31] MEDS ORDERED: MORPHINE 2 MG/ML CARPUJECT IVP PRN (08:17)
[2023-08-31] MEDS ORDERED: ePHEDrine 50 MG/ML VIAL IVP PRN (08:17)
[2023-08-31] MEDS ORDERED: ATROPINE ABBOJECT 1 MG/10 ML SYRINGE IVP PRN (08:17)
[2023-08-31] MEDS ORDERED: HYDROmorphone 0.5 MG/0.5 ML SYRINGE IVP PRN (08:17)
[2023-08-31] MEDS ORDERED: fentaNYL 100 MCG/2 ML VIAL IVP PRN (08:17)
[2023-08-31] MEDS ORDERED: NALOXONE 0.4 MG/ML VIAL IVP PRN (08:17)
[2023-08-31] MEDS ORDERED: BUPIVACAINE 0.5%-EPI 1:200000 PF 30 ML VIAL ONE (08:32)
[2023-08-31] MEDS ORDERED: POTASSIUM IODIDE/IODINE 14 ML SOLUTION ONE (08:32)
[2023-08-31] MEDS ORDERED: ONDANSETRON 4 MG/2 ML VIAL ONE (08:49)
[2023-08-31] MEDS ORDERED: DEXAMETHASONE 4 MG/ML VIAL ONE (08:49)
[2023-08-31] MEDS ORDERED: LACTATED RINGERS 1,000 ML IV SCH (09:00)
[2023-08-31] MEDS: POTASSIUM IODIDE/IODINE 14 ML SOLUTION TOP ONE (09:12)
[2023-08-31] MEDS: BUPIVACAINE 0.5%-EPI 1:200000 PF 30 ML VIAL SUBQ ONE ×3 (09:13)
[2023-08-31 10:33] VITALS: BP 127/94; O2SAT 97
--- NOTE | 2023-08-31 10:41 | OPERATIVE REPORT ---
Operative Report - General Planned Procedure: partial vaginectomy Pre-Op Diagnosis: VaIN 2 Procedure Performed: Partial Vaginectomy Post Op Diagnosis: VaIN 2 - Procedure Note Primary Surgeon: Marni Trejo MD Secondary Surgeon: Rico Marcos MD Anesthesia Technique: General LMA Pathology: 4 specimens from vagina labeled by location IV Fluids (mL): 700 Estimated Blood Loss (mL): 5 Urine Output (mL): 0 Indications: VaIN 2 Findings: normal appearing vagina tissue, area of dark in right corner. - Other Other Information/Narrative: INDICATION FOR PROCEDURE: Patient is a 67 yo with history of hysterectomy for SONY. She now has VaIN. office biopsy was done with VaIN 2. She was not willing to go to [facility] for care, which is what I recommended. She wished treatment here in [place]. She has signed the appropriate consent forms. She is not sexually active and does not plan to be again but we did discuss that her vagina was going to be relatively short after this procedure and fully penetrative intercourse might not be possible. She voiced understanding. DESCRIPTION OF PROCEDURE: The patient was brought to the operating room where general LMA anesthesia was administered. She was prepped and draped in normal sterile fashion with her legs in David stirrups. She had sequential compression devices on her lower extremities. She received Ancef and Flagyl for pre- operative antibiotics. Exam under anesthesia was done. Speculum was placed. The vagina was examined with Lugols solution prior to the prep and then again after. No obvious changes were noted. She has been using estrogen cream vaginally for the last week to aid with post op healing. The top of the vagina was injected with Marcaine 0.5% with epi. The knife was used to incise the vaginal skin at the posterior margin of the resection area, about 2 cm under the crease of the top of the vaginal cuff. The Metzenbaum scissors were used to dissect the skin off the underlying mucosa. At the right corner there was some tissue that was darkened. Like from an old suture. This was removed as well. The top incision was made and the skin was dissected off to remove the entire area at the top 1/3 of the vagina, including the lateral sides of the vaignal cuff. This was all sent to pathology in labeled segments. Given that there was no areas that appeared abnormal, it was hard to be sure that I go it all. But I am certain that I removed the areas that I had biopsied and had been abnormal. The vaginal cuff edges were then closed with 0 Vicryl suture. The patient had anesthesia reversed, LMA removed and she was brought to the recovery room in stable condition. She will be discharged home when awake and stable. Complications: None Counts were correct.
[2023-08-31] MEDS ORDERED: HYDROcod/ACETAM 5/325 MG TABLET PO PRN (11:08)
--- NOTE | 2023-08-31 12:47 | ANESTHESIA POST OP EVALUATION ---
Anesthesia Post Eval - Post Anesthesia Eval Vitals: Last Vital Signs Temp 36.1 C L 08/31/23 10:30 Pulse 81 08/31/23 10:30 Resp 16 08/31/23 10:30 BP 127/94 H 08/31/23 10:30 Pulse Ox 97 08/31/23 10:30 O2 Flow Rate CV Function Including HR & BP: Stable Pain Control: Satisfactory Nausea & Vomiting: Negative Mental Status: Baseline Respiratory Status: Airway Patent Hydration Status: Satisfactory Anesthesia Complications: None
== END 2023-08-31 07:28 | disposition home or self-care (01) ==
LOC: SDS 07:27
PROVIDERS: ATTEND Obstetrics & Gynecology
PROC: 0UBG7ZZ Excision of Vagina, Via Natural or Artificial Opening (ICD-10-PCS; principal; 2023-08-31 08:30)
DX: N89.0 Mild vaginal dysplasia (principal); I10 Essential (primary) hypertension; Z90.710 Acquired absence of both cervix and uterus
CPT/HCPCS: 36415; 57106; A9270; J7120